=== PATIENT | female | born 1965 | race Asian ===

== ENCOUNTER → 2018-09-20 07:07 | Outpatient (CLI) | payer BC, SELFPAY ==
[2018-09-20 10:39] LABS: ALB/GLOB Ratio 1.2 RATIO (0.9-2.4); AST(SGOT) 35 U/L (15-37); Alanine Aminotransfer ALT/SGPT 59 U/L (13-56); Albumin, Serum 3.9 g/dL (3.2-5.0); Alkaline Phosphatase 77 U/L (45-117); Anion Gap 8 (5-15); BUN 14 mg/dL (7-18); BUN/Creat Ratio 23.1 RATIO (10-20); Calcium,Total 8.9 mg/dL (8.5-10.1); Chloride 104 mmol/L (98-107); Cholesterol 164 mg/dL (200); Creatinine, Serum 0.61 mg/dL (0.55-1.02); EST Glomerular Filtration Rate 109 mL/min (>60); Est Glom Filt Rate - Afr Amer 132 mL/min (>60); Globulin 3.2 g/dL (2.2-4.2); Glucose 99 mg/dL (74-106); High Density Lipoprotein 59 mg/dL; Potassium 4.3 mmol/L (3.5-5.1); Protein, Total 7.1 g/dL (6.4-8.2); Sodium Level 141 mmol/L (136-145); Thyroid Stim Hormone (TSH) 0.48 uIU/mL (0.358-3.74); Triglycerides 86 mg/dL; Very Low Density Lipoprotein 17 mg/dL (5-40)
[2018-09-20 14:05] LABS: Hemoglobin A1c 6.8 % (4.2-6.3)
== END ==
PROVIDERS: Family Provider Family Medicine; PCP Family Medicine; Referring Provider Family Medicine; Visit Provider Family Medicine
DX: E11.9 Type 2 diabetes mellitus without complications (principal); E78.00 Pure hypercholesterolemia, unspecified
CPT/HCPCS: 36415; 80053; 80061; 83036; 84443

== ENCOUNTER → 2019-03-21 | Outpatient (CLI) | payer BC, SELFPAY ==
[2019-03-21 10:34] LABS: ALB/GLOB Ratio 1.3 RATIO (0.9-2.4); AST(SGOT) 23 U/L (15-37); Alanine Aminotransfer ALT/SGPT 32 U/L (13-56); Albumin, Serum 3.7 g/dL (3.2-5.0); Alkaline Phosphatase 82 U/L (45-117); Anion Gap 8 (5-15); BUN 12 mg/dL (7-18); BUN/Creat Ratio 21.7 RATIO (10-20); CPK Total, Creatine Kinase 97 U/L (26-192); Calcium,Total 8.6 mg/dL (8.5-10.1); Chloride 106 mmol/L (98-107); Cholesterol 146 mg/dL (200); Creatinine, Serum 0.55 mg/dL (0.55-1.02); EST Glomerular Filtration Rate 121 mL/min (>60); Est Glom Filt Rate - Afr Amer 147 mL/min (>60); GGTP 49 U/L (5-55); Globulin 2.9 g/dL (2.2-4.2); Glucose 104 mg/dL (74-106); High Density Lipoprotein 58 mg/dL; Potassium 4.1 mmol/L (3.5-5.1); Protein, Total 6.6 g/dL (6.4-8.2); Sodium Level 142 mmol/L (136-145); Triglycerides 91 mg/dL; Very Low Density Lipoprotein 18 mg/dL (5-40)
== END | disposition home or self-care (01) ==
LOC: MTLAB 07:03
PROVIDERS: Family Provider Family Medicine; PCP Family Medicine; Referring Provider Family Medicine; Visit Provider Family Medicine
DX: R74.0 Nonspecific elevation of levels of transaminase and lactic acid dehydrogenase [LDH] (principal); E78.00 Pure hypercholesterolemia, unspecified; E11.9 Type 2 diabetes mellitus without complications
CPT/HCPCS: 36415; 80053; 80061; 82550; 82977

== ENCOUNTER → 2019-08-13 08:54 | Outpatient (CLI) | payer BC, SELFPAY ==
[2019-08-13 09:49] LABS: Hematocrit 41.1 % (37-47); Hemoglobin 13.1 g/dL (12.0-15.0); Mean Corp Hgb Conc 31.9 g/dL (32-36); Mean Corpuscular Hgb 28.1 pg (27.0-32.0); Mean Corpuscular Volume 88.2 fL (81-99); Mean Platelet Vol. 10.9 fl (6.2-12.0); Platelet Count 255 K/mm3 (150-450); RBC Distribution Width CV 13.4 % (11.6-14.6); RBC Distribution Width SD 43.2 fl (35.1-43.9); Red Blood Count 4.66 M/mm3 (4.2-5.4)
[2019-08-13 10:13] LABS: ALB/GLOB Ratio 1.2 RATIO (0.9-2.4); AST(SGOT) 15 U/L (15-37); Alanine Aminotransfer ALT/SGPT 20 U/L (13-56); Alkaline Phosphatase 69 U/L (45-117); Anion Gap 4 (5-15); BUN 12 mg/dL (7-18); BUN/Creat Ratio 19.8 RATIO (10-20); Calcium,Total 8.5 mg/dL (8.5-10.1); Chloride 105 mmol/L (98-107); Cholesterol 178 mg/dL (200); Creatinine, Serum 0.61 mg/dL (0.55-1.02); EST Glomerular Filtration Rate 109 mL/min (>60); Est Glom Filt Rate - Afr Amer 132 mL/min (>60); Globulin 3.4 g/dL (2.2-4.2); Glucose 103 mg/dL (74-106); Hemoglobin A1c 6.7 % (4.2-6.3); High Density Lipoprotein 67 mg/dL; Potassium 3.9 mmol/L (3.5-5.1); Protein, Total 7.4 g/dL (6.4-8.2); Sodium Level 139 mmol/L (136-145); Thyroid Stim Hormone (TSH) 0.33 uIU/mL (0.358-3.74); Triglycerides 85 mg/dL; Very Low Density Lipoprotein 17 mg/dL (5-40)
[2019-08-13 10:28] LABS: Vitamin D,25 Hydroxy 12.4 ng/mL (29.95-100.01)
== END ==
PROVIDERS: Family Provider Family Medicine; PCP Family Medicine; Referring Provider Family Medicine; Visit Provider Family Medicine
DX: E11.9 Type 2 diabetes mellitus without complications (principal)
CPT/HCPCS: 36415; 80053; 80061; 82306; 83036; 84443; 85027

== ENCOUNTER → 2020-05-07 | Outpatient (CLI) | payer BC, SELFPAY ==
[2020-05-07 09:48] LABS: Absolute Lymphocyte Count 2.43 X10^3/uL (0.83-4.51); Absolute Neutrophil Count 2.3 X10^3/uL (2.0-7.7); Basophil# 0.03 X10^3/uL; Basophil% 0.6 % (0-1); Eosinophil# 0.07 X10^3/uL; Eosinophils% 1.3 % (0-5); Hemoglobin 13.6 g/dL (12.0-15.0); Lymphocyte # 2.43 X10^3/ul (4.0); Lymphocyte % 45.8 % (19-41); Mean Corp Hgb Conc 32.4 g/dL (32-36); Mean Corpuscular Hgb 28.5 pg (27.0-32.0); Mean Corpuscular Volume 87.9 fL (81-99); Mean Platelet Vol. 11.2 fl (6.2-12.0); Monocyte# 0.44 X10^3/uL; Monocyte% 8.3 % (0-10); NRBC Flagged by Analyzer 0 % (0-5); Neutrophil # 2.33 X10^3/uL (2.7-7.7); Neutrophil % 43.8 % (47-70); Platelet Count 253 K/mm3 (150-450); RBC Distribution Width SD 38.9 fl (35.1-43.9); Red Blood Count 4.78 M/mm3 (4.2-5.4); White Blood Count 5.3 K/mm3 (4.4-11.0)
[2020-05-07 10:11] LABS: ALB/GLOB Ratio 1.2 RATIO (0.9-2.4); AST(SGOT) 20 U/L (15-37); Alanine Aminotransfer ALT/SGPT 36 U/L (13-56); Albumin, Serum 3.9 g/dL (3.2-5.0); Alkaline Phosphatase 74 U/L (45-117); Anion Gap 7 (5-15); BUN 13 mg/dL (7-18); BUN/Creat Ratio 21.5 RATIO (10-20); Calcium,Total 8.7 mg/dL (8.5-10.1); Chloride 104 mmol/L (98-107); Cholesterol 183 mg/dL (200); Creatinine, Serum 0.61 mg/dL (0.55-1.02); EST Glomerular Filtration Rate 109 mL/min (>60); Est Glom Filt Rate - Afr Amer 131 mL/min (>60); Globulin 3.2 g/dL (2.2-4.2); Glucose 130 mg/dL (74-106); High Density Lipoprotein 57 mg/dL; Potassium 3.9 mmol/L (3.5-5.1); Protein, Total 7.1 g/dL (6.4-8.2); Sodium Level 139 mmol/L (136-145); Thyroid Stim Hormone (TSH) 0.39 uIU/mL (0.358-3.74); Triglycerides 147 mg/dL; Very Low Density Lipoprotein 29 mg/dL (5-40)
[2020-05-07 10:29] LABS: Microalbumin,Random Urine 5.8 mg/L (NO RANGE EST.); Microalbumin:Creatinine Ratio 6.5 mg/g CRE (<30 mg/g CRE)
[2020-05-07 10:41] LABS: Hemoglobin A1c 6.9 % (3.8-5.6)
[2020-05-07 10:55] LABS: Vitamin D,25 Hydroxy 32.8 ng/mL
== END | disposition home or self-care (01) ==
LOC: MFPLAB 08:11
PROVIDERS: PCP Family Medicine; Referring Provider Family Medicine; Visit Provider Family Medicine
DX: E55.9 Vitamin D deficiency, unspecified (principal); E11.9 Type 2 diabetes mellitus without complications
CPT/HCPCS: 36415; 80053; 80061; 82043; 82306; 82570; 83036; 84443; 85025

== ENCOUNTER → 2021-01-12 13:41 | Outpatient (CLI) | payer BC, SELFPAY | PROVIDERS: PCP Family Medicine; Visit Provider Family Medicine | DX: Z20.822 Contact with and (suspected) exposure to COVID-19 (principal) | CPT/HCPCS: 87635; U0002 ==

== ENCOUNTER → 2021-02-11 08:46 | Outpatient (CLI) | payer BC, SELFPAY ==
[2021-02-11 10:51] LABS: ALB/GLOB Ratio 1.1 RATIO (0.9-2.4); AST(SGOT) 14 U/L (15-37); Alanine Aminotransfer ALT/SGPT 20 U/L (13-56); Albumin, Serum 3.9 g/dL (3.2-5.0); Alkaline Phosphatase 66 U/L (45-117); Anion Gap 3 (5-15); BUN 8 mg/dL (7-18); BUN/Creat Ratio 12.9 RATIO (10-20); Calcium,Total 8.9 mg/dL (8.5-10.1); Chloride 104 mmol/L (98-107); Cholesterol 200 mg/dL (200); Creatinine, Serum 0.62 mg/dL (0.55-1.02); EST Glomerular Filtration Rate 105 mL/min (>60); Est Glom Filt Rate - Afr Amer 128 mL/min (>60); Ferritin 109 ng/mL (8-252); Globulin 3.4 g/dL (2.2-4.2); Glucose 128 mg/dL (74-106); High Density Lipoprotein 67 mg/dL; Potassium 4.2 mmol/L (3.5-5.1); Protein, Total 7.3 g/dL (6.4-8.2); Sodium Level 137 mmol/L (136-145); Thyroid Stim Hormone (TSH) 0.32 uIU/mL (0.358-3.74); Triglycerides 118 mg/dL; Very Low Density Lipoprotein 24 mg/dL (5-40)
[2021-02-17 12:25] LABS: Vitamin D,25 Hydroxy 30.3 ng/mL
== END ==
PROVIDERS: PCP Family Medicine; Referring Provider Family Medicine; Visit Provider Family Medicine
DX: E55.9 Vitamin D deficiency, unspecified (principal); E11.9 Type 2 diabetes mellitus without complications; E78.00 Pure hypercholesterolemia, unspecified; G47.9 Sleep disorder, unspecified
CPT/HCPCS: 36415; 80053; 80061; 82306; 82728; 84443

== ENCOUNTER → 2021-04-14 08:54 | Outpatient (CLI) | payer BC, SELFPAY ==
--- NOTE | 2021-04-14 09:00 | BI_ITS ---
MAMMOGRAPHY - BILATERAL DIAGNOSTIC REASON FOR EXAM: Female, 55 years old. Abnormal screening mammogram. PERTINENT HISTORY: Non-contributory. TECHNIQUE: 90 degree lateral and compression spot views of both breasts were obtained. CAD: Full Field Digital Mammography with Computer Added Detection was performed. COMPARISON: Comparison is made with prior outside examination dated 03/23/2021. FINDINGS: Breast Composition: There are scattered areas of fibroglandular density. The questionable density in the upper aspect of the left breast represents superimposition of tissue. Persistent nodular density in the deep slightly inferior aspect of the right breast is seen. Correlation with ultrasound is recommended. No other significant abnormalities are identified. BI/DIAG MAMM W/CAD, BILAT IMPRESSION: Correlation with ultrasound is recommended for the nodular density seen in the deep slightly inferior aspect of the right breast. ASSESSMENT CATEGORY: BIRADS Category 0: Incomplete. Need additional imaging evaluation. A letter regarding these results will be sent to the patient by the facility within 30 days. Approximately 10% of breast cancers are not detected by mammography. A normal mammogram should not delay biopsy of a clinically suspicious abnormality. Electronically Signed: Rafael Wood MD at 9:45 EDT , Service support ,
--- NOTE | 2021-04-14 09:54 | US_ITS ---
STUDY: ULTRASOUND BREAST - RIGHT REASON FOR EXAM: Female, 55 years old. Abnormal screening mammogram. TECHNIQUE: Axial and longitudinal images of the RIGHT breast were performed with a high resolution ultrasound transducer. # OF IMAGES: 30 COMPARISON: Comparison is made with prior mammogram done earlier in the day. FINDINGS: RIGHT Breast: The inferior half of the right breast was examined by ultrasound. No sonographic abnormality is seen. US/Breast Complete Unilateral IMPRESSION: No sonographic abnormality is seen. ASSESSMENT CATEGORY: BIRADS Category 1: Negative. A letter regarding these results will be sent to the patient by the facility within 30 days. Electronically Signed: Rafael Wood MD at 10:52 EDT , Service support ,
== END ==
PROVIDERS: PCP Family Medicine; Referring Provider Family Medicine; Visit Provider Family Medicine
DX: R92.8 Other abnormal and inconclusive findings on diagnostic imaging of breast (principal)
CPT/HCPCS: 76641; 77062; 77066; G0279

== ENCOUNTER → 2021-09-13 08:08 | Outpatient (CLI) | payer BC, SELFPAY ==
[2021-09-13 10:29] LABS: PTHIN 42.5 pg/mL (18.4-80.1)
[2021-09-13 11:41] LABS: AST(SGOT) 17 U/L (15-37); Alanine Aminotransfer ALT/SGPT 29 U/L (13-56); Albumin, Serum 3.4 g/dL (3.2-5.0); Alkaline Phosphatase 67 U/L (45-117); Anion Gap 8 (5-15); BUN 14 mg/dL (7-18); BUN/Creat Ratio 23.6 RATIO (10-20); Calcium,Total 8.6 mg/dL (8.5-10.1); Chloride 106 mmol/L (98-107); Cholesterol 145 mg/dL (200); Creatinine, Serum 0.59 mg/dL (0.55-1.02); EST Glomerular Filtration Rate 111 mL/min (>60); Est Glom Filt Rate - Afr Amer 134 mL/min (>60); Free T3 2.8 pg/mL (2.18-3.98); Globulin 3.4 g/dL (2.2-4.2); Glucose 112 mg/dL (74-106); High Density Lipoprotein 55 mg/dL; Potassium 3.6 mmol/L (3.5-5.1); Protein, Total 6.8 g/dL (6.4-8.2); Sodium Level 142 mmol/L (136-145); T4 Free Direct 1.29 ng/dL (0.76-1.46); Thyroid Stim Hormone (TSH) 0.65 uIU/mL (0.358-3.74); Triglycerides 63 mg/dL; Very Low Density Lipoprotein 13 mg/dL (5-40)
[2021-09-14 16:29] LABS: Anti-Thyroglobulin AB < 1.0 IU/mL (0.0-0.9); Thyroglobulin, Serum Qt. 5.6 ng/mL (1.5-38.5); Thyroid Peroxidase AB 9 IU/mL (0-34)
== END ==
PROVIDERS: PCP Family Medicine; Referring Provider Family Medicine; Visit Provider Family Medicine
DX: E04.1 Nontoxic single thyroid nodule (principal); E11.9 Type 2 diabetes mellitus without complications
CPT/HCPCS: 80053; 80061; 83970; 84432; 84439; 84443; 84481; 86376; 86800

== ENCOUNTER 2021-09-26 10:17 | Outpatient (CLI) | payer BC, SELFPAY ==
--- NOTE | 2021-09-26 10:23 | US_ITS ---
STUDY: THYROID ULTRASOUND REASON FOR EXAM: Female, 55 years old. R lower pole, 8-9mm, firm, round, mobile nodule in inferior pole TECHNIQUE: Ultrasound evaluation of the thyroid was performed with real-time and static holman-scale imaging. COMPARISON: None. FINDINGS: RIGHT LOBE: The right lobe of the thyroid gland measures 5.4 x 2.0 x 1.6 cm. There is a homogeneous echotexture. There is an upper pole 3 x 2 x 2 mm cystic structure. There is a 3 x 2 x 2 mm cystic structure within the right thyroid. LEFT LOBE: The left lobe of the thyroid gland measures 5.7 x 2.0 x 1.6 cm. There is a homogeneous echotexture. There are 3 cystic structures within the left thyroid each measuring approximately 3 x 2 x 3 mm. ISTHMUS: The isthmus measures 3 millimeters. . The level of the right midline isthmus there is a 6 x 7 x 1 mm superficial cystic structure with through transmission. There is no significant vascularity. The regional lymph nodes are normal. US/Thyroid IMPRESSION: Small bilateral cystic structures within the enlarged thyroid. There is a exophytic 6 x 7 x 4 mm cystic structure in the periphery of the right midline of the isthmus, potentially palpable. Electronically Signed: Selena Liu MD at 4:49 EST Tel , Service support ,
== END 2021-09-26 23:59 | disposition home or self-care (01) ==
LOC: US 10:18
PROVIDERS: PCP Family Medicine; Visit Provider Family Medicine
DX: E04.1 Nontoxic single thyroid nodule (principal)
CPT/HCPCS: 76536

== ENCOUNTER → 2022-04-10 | Outpatient (CLI) | payer BC, SELFPAY ==
--- NOTE | 2022-04-10 09:40 | RAD_ITS ---
STUDY: X-RAY - RIGHT WRIST REASON FOR EXAM: Female, 56 years old. Chronic pain. TECHNIQUE: 3 view(s) of the wrist were obtained. COMPARISON: None. FINDINGS: Osteopenia. Normal visualized distal radius and ulna. Mild arthrosis of the radiocarpal articulation. Normal distal radioulnar articulation. Normal carpal bones. Mild arthrosis of the radial carpal row. Moderate arthrosis of the first CMC joint. Normal second through fifth carpometacarpal articulations. Normal visualized metacarpal bones. The soft tissue structures are unremarkable. RAD/Wrist min 3 Views IMPRESSION: Osteopenia with osteoarthritic changes as described. No acute abnormality, chondrocalcinosis or erosive changes. Electronically Signed: Ambrocio Bullard MD at 12:41 EDT ,
== END | disposition home or self-care (01) ==
PROVIDERS: PCP Family Medicine; Referring Provider Family Medicine; Visit Provider Family Medicine
DX: M25.531 Pain in right wrist (principal)
CPT/HCPCS: 73110

== ENCOUNTER → 2022-04-17 | Outpatient (CLI) | payer BC, SELFPAY ==
--- NOTE | 2022-04-17 08:36 | BI_ITS ---
MAMMOGRAPHY - BILATERAL SCREENING REASON FOR EXAM: Female, 56 years old. Routine annual screening examination. PERTINENT HISTORY: Non-contributory. TECHNIQUE: Digital bilateral breast tammy (3D mammographic acquisition) in the CC and MLO projections. 2-D mediolateral oblique (MLO) and craniocaudad (CC) views of both breasts were obtained. CAD: Full Field Digital Mammography with Computer Added Detection was performed. COMPARISON: Comparison is made with prior examination dated 04/14/2021. FINDINGS: Breast Composition: The breasts are heterogeneously dense, which may obscure small masses. There are no dominant masses or suspicious calcifications. Stable small benign-appearing bilateral axillary lymph nodes. No other significant abnormalities are identified. There has been no significant change since the prior study. BI/SCRN MAMM (CAD)W/TAMMY BILAT IMPRESSION: Stable bilateral screening mammogram. Yearly follow-up mammogram recommended. (A) ASSESSMENT CATEGORY: BIRADS Category 2: Benign. A letter regarding these results will be sent to the patient by the facility within 30 days. Approximately 10% of breast cancers are not detected by mammography. A normal mammogram should not delay biopsy of a clinically suspicious abnormality. [id number] Electronically Signed: Rafael Wood MD at 9:37 EDT ,
== END | disposition home or self-care (01) ==
LOC: OPBI 08:35
PROVIDERS: PCP Family Medicine; Visit Provider Family Medicine
DX: Z12.31 Encounter for screening mammogram for malignant neoplasm of breast (principal)
CPT/HCPCS: 77063; 77067

== ENCOUNTER 2022-05-12 10:00 | Outpatient (RCR) | payer BC, SELFPAY ==
--- NOTE | 2022-04-26 13:40 | HP.OTEVAL_ITS ---
Patient's Visit Information YUNIER TERRY is a 56 year old F, referred to Occupational Therapy by Dr. Dakota Mckinley MD, with a diagnosis of R CTS. Date of Evaluation: 04/26/22 Occupational Therapist: Macie Gómez - Subjective Pt reports having symptoms since July and symptoms have been progressively getting worse. Wearing brace at night on R hand. - ADLs Comments: Pt reports fasteners can be tricky at times Comments: Pt reports holding utensils can bother her Comments: Pt reports discomfort in R hand when completing hygiene Comments: Pt reports difficulty with opening containers, peeling veggies Comments: Pt's spouse helps when/as needed - Pain R hand 2 - ROM Wrist: R: 60* flex, 55* ext; L: 90* flex, 70* ext - Strength Application Release Manager: R: 33#, L: 45# Lateral Pinch: R: 8#, L: 12# Tripod Pinch: R: 8#, L: 10# Tip-to-Tip Pinch: R: 6#, L: 6# Strength Comments: Pt reports she is R hand dominant. Works out every day. Most difficult with positions where having to hold body up (push ups). - Quick DASH-Disab of Arm,Shoulder& Hand Quick DASH Score: 25.0000 - Goals Goal:: Pt will increase R fishing tackle repairer strength by 10-15# by end of D/C to complete ADL/IADL tasks Goal:: Pt will demo an increase in wrist flex/ext AROM by 10-15 degrees to complete ADL tasks Goal:: Pt will demo 2/10 pain or less during FMC tasks Goal:: Pt will be educated on joint protection techniques by end of D/C Goal:: Pt will be educated on AE as needed to complete ADL tasks (opening jars/containers, peeling vegetables, etc). - Rehabilitation General Assessment: Pt presents with R CTS- no surgery. Pt reports symptoms have been occurring since July. She is R hand dominant. She shared that she has decreased R wrist flex/ext and increased pain with activities, such as when peeling vegetables and when writing. Pt reports difficulty with opening jars/containers, and increased discomfort when completing toileting hygiene with R hand. Assessed fishing tackle repairer/pinch strength. 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 She shared that she has heightened keyboard to keep wrist in neutral position and that has helped. She works out and reports difficulty with push ups and prolonged body holds. She reports that she wears a brace a night to sleep and that has helped with getting good sleep and decrease pain/discomfort in R hand. Educated pt on body mechanics and dx, and introduced pt to HEP with handout provided. Rehabilitation Potential: Good - Anticipated Interventions A/AAROM/PROM, Strengthening, Joint Protection/Energy Conservation, Ergonomic Education, Fine Motor Coord/Josh, ADL Training, Education re assistive Equipment, Home Program - Visit Plan Frequency: 1x/Week Duration: 4 Weeks TEXT: Thank you for the opportunity to evaluate your patient. For Medicare and Medicare HMO plans, please review the plan of care and approve it. It will need to be FAXED BACK to us at [phone] for Medicare purposes. Please let me know if there are questions or concerns regarding this plan of care. Physician Signature: Date:
--- NOTE | 2022-08-28 12:55 | HP.OT.NRP ---
YUNIER TERRY was seen in my office for initial evaluation on 04/26/22. The following Plan of Care was established for this patient: Initial Frequency: 1x/Week Initial Duration: 4 Weeks Plan: cont POC Anticipated Interventions: A/AAROM/PROM, Strengthening, Joint Protection/Energy Conservation, Ergonomic Education, Fine Motor Coord/Josh, ADL Training, Education re assistive Equipment, Home Program This patient was last seen in our office 05/12/22. Pertinent comments regarding their Occupational therapy will appear below: Pt was seen for 5 OT sessions- pt progressed well- she did get a home paraffin tank to use- no further apts have been scheduled and due to time lapse in services pt d/c. At this point I will be discontinuing this patient from occupational therapy. I would be happy to see this patient again in the future if found appropriate by the physician. Thank you! Penny Quezada, OTR/L, CHT
== END 2022-05-12 19:00 | disposition home or self-care (01) ==
LOC: OT 10:00
PROVIDERS: PCP Family Medicine; Referring Provider Family Medicine; Visit Provider Family Medicine
DX: G56.01 Carpal tunnel syndrome, right upper limb (principal)
CPT/HCPCS: 97035; 97110; 97140; 97166; 97530

== ENCOUNTER → 2022-09-21 | Outpatient (CLI) | payer BC, SELFPAY ==
[2022-09-21 10:29] LABS: Hemoglobin A1c 6.5 % (3.8-5.6)
[2022-09-21 10:37] LABS: ALB/GLOB Ratio 1.1 RATIO (0.9-2.4); AST(SGOT) 19 U/L (15-37); Alanine Aminotransfer ALT/SGPT 38 U/L (13-56); Albumin, Serum 3.6 g/dL (3.2-5.0); Alkaline Phosphatase 91 U/L (45-117); Anion Gap 8 (5-15); BUN 12 mg/dL (7-18); BUN/Creat Ratio 17.9 RATIO (10-20); Calcium,Total 8.8 mg/dL (8.5-10.1); Chloride 103 mmol/L (98-107); Cholesterol 198 mg/dL (200); Creatinine, Serum 0.67 mg/dL (0.55-1.02); EST Glomerular Filtration Rate 96 mL/min (>60); Est Glom Filt Rate - Afr Amer 116 mL/min (>60); Globulin 3.4 g/dL (2.2-4.2); Glucose 130 mg/dL (74-106); High Density Lipoprotein 54 mg/dL; Sodium Level 139 mmol/L (136-145); Thyroid Stim Hormone (TSH) 0.61 uIU/mL (0.358-3.74); Triglycerides 185 mg/dL; Very Low Density Lipoprotein 37 mg/dL (5-40)
== END | disposition home or self-care (01) ==
LOC: MTLAB 07:51
PROVIDERS: PCP Family Medicine; Referring Provider Family Medicine; Visit Provider Family Medicine
DX: E11.9 Type 2 diabetes mellitus without complications (principal); E55.9 Vitamin D deficiency, unspecified; E04.1 Nontoxic single thyroid nodule
CPT/HCPCS: 36415; 80053; 80061; 82306; 83036; 84443

== ENCOUNTER → 2022-10-05 | Outpatient (CLI) | payer BC, SELFPAY ==
--- NOTE | 2022-10-05 12:48 | US_ITS ---
STUDY: THYROID ULTRASOUND REASON FOR EXAM: Female, 56 years old. Exophytic cyst TECHNIQUE: Ultrasound evaluation of the thyroid was performed with real-time and static holman-scale imaging. COMPARISON: Comparison is made with prior study 09/26/2021. FINDINGS: RIGHT LOBE: The right lobe of the thyroid gland is enlarged and measures 5.3 cm x 2 cm x 1.7 cm. There is a homogeneous echotexture. There are 2, 2 mm x 2 mm x 2 mm adjacent cysts in the upper pole. LEFT LOBE: The left lobe of the thyroid gland is enlarged and measures 5.4 cm x 2 cm x 1.4 cm. There is a homogeneous echotexture. There are multiple subcentimeter hypoechoic solid and cystic nodules. The largest is in the upper pole and measures 4 mm x 4 mm x 2 mm. This is essentially unchanged. ISTHMUS: The isthmus measures 2.7 mm. Stable 8 mm x 9 mm x 4 mm cyst in the mid aspect of the isthmus. The regional lymph nodes are normal. US/Thyroid IMPRESSION: Stable examination Electronically Signed: Rafael Wood MD at 10:25 EST ,
== END | disposition home or self-care (01) ==
LOC: US 12:46
PROVIDERS: PCP Family Medicine; Visit Provider Family Medicine
DX: E04.1 Nontoxic single thyroid nodule (principal)
CPT/HCPCS: 76536

== ENCOUNTER → 2023-04-02 | Outpatient (CLI) | payer BC, SELFPAY ==
[2023-04-02 10:35] LABS: AST(SGOT) 30 U/L (15-37); Alanine Aminotransfer ALT/SGPT 42 U/L (13-56); Albumin, Serum 3.8 g/dL (3.2-5.0); Alkaline Phosphatase 90 U/L (45-117); Anion Gap 4 (5-15); BUN 17 mg/dL (7-18); BUN/Creat Ratio 22.5 RATIO (10-20); Calcium,Total 9.1 mg/dL (8.5-10.1); Chloride 102 mmol/L (98-107); Cholesterol 212 mg/dL (200); Creatinine, Serum 0.76 mg/dL (0.55-1.02); EST Glomerular Filtration Rate 83 mL/min (>60); Est Glom Filt Rate - Afr Amer 101 mL/min (>60); Globulin 3.8 g/dL (2.2-4.2); Glucose 122 mg/dL (74-106); High Density Lipoprotein 58 mg/dL; Potassium 4.3 mmol/L (3.5-5.1); Protein, Total 7.6 g/dL (6.4-8.2); Sodium Level 136 mmol/L (136-145); Triglycerides 250 mg/dL; Very Low Density Lipoprotein 50 mg/dL (5-40)
[2023-04-02 10:44] LABS: Vitamin D,25 Hydroxy 48.8 ng/mL
== END | disposition home or self-care (01) ==
LOC: MFPLAB 08:59
PROVIDERS: PCP Family Medicine; Visit Provider Family Medicine
DX: E11.69 Type 2 diabetes mellitus with other specified complication (principal); E55.9 Vitamin D deficiency, unspecified
CPT/HCPCS: 36415; 80053; 80061; 82306

== ENCOUNTER → 2023-04-18 | Outpatient (CLI) | payer BC, SELFPAY ==
--- NOTE | 2023-04-18 07:42 | BI_ITS ---
MAMMOGRAPHY - BILATERAL SCREENING REASON FOR EXAM: Female, 57 years old. Routine annual screening examination. PERTINENT HISTORY: Non-contributory. TECHNIQUE: Digital bilateral breast tammy (3D mammographic acquisition) in the CC and MLO projections. 2-D mediolateral oblique (MLO) and craniocaudad (CC) views of both breasts were obtained. CAD: Full Field Digital Mammography with Computer Added Detection was performed. COMPARISON: Comparison is made with prior study April 17, 2022 and April 14, 2021. FINDINGS: Breast Composition: The breasts are heterogeneously dense, which may obscure small masses. There are no dominant masses or suspicious calcifications. Stable small benign appearing bilateral axillary nodes. No other significant abnormalities are identified. There has been no significant change since the prior study. BI/SCRN MAMM (CAD)W/TAMMY BILAT IMPRESSION: Stable bilateral screening mammogram. Yearly follow-up mammogram recommended. (A) ASSESSMENT CATEGORY: BIRADS Category 2: Benign. A letter regarding these results will be sent to the patient by the facility within 30 days. Approximately 10% of breast cancers are not detected by mammography. A normal mammogram should not delay biopsy of a clinically suspicious abnormality. [id number] Electronically Signed: Rafael Wood MD at 8:36 EDT ,
== END | disposition home or self-care (01) ==
LOC: OPBI 07:40
PROVIDERS: PCP Family Medicine; Referring Provider Family Medicine; Visit Provider Family Medicine
DX: Z12.31 Encounter for screening mammogram for malignant neoplasm of breast (principal)
CPT/HCPCS: 77063; 77067

== ENCOUNTER → 2023-09-21 | Outpatient (CLI) | payer BC, SELFPAY ==
--- OUTSIDE RECORDS SUMMARY | 2023-09-21 07:19 | XMS RPT_ITS | CCD ---
Author Name Unknown Address [address] [place] [address] Organization [facility] Care Team Providers Care Pie Maker Name Role Phone DIONICIO LOYA Unavailable Unavailable DIONICIO LOYA Unavailable Unavailable Problems Active Problems Problem Classification Problem Date Documented Da te Episodic/Chronic Unclassified (1 source) Unknown / UNK(Unknown) Onset: 07-20-2017 Past or Other Problems Problem Classification Problem Date Documented Da te Episodic/Chronic Syncope (2 sources) Syncope and collapse; Translations: [Syncope and collapse] Onset: 07-20-2017 Episodic Results Test Name Value Interpretation Reference Range Facil ity Encounters Encounter Date Encounter Type Care Provider Facility Start: 07-20-2017 End: 07-21-2017 Emergency department patient visit DIONICIO LOYA [facility] Payers Date Payer Category Payer Policy ID Unknown [id number] Summary Purpose Family History No Family History Records FoundNo Family History Records FoundNo Family History Records FoundNo Family History Records Found Advance Directives No Advanced Directives Records FoundNo Advanced Directives Records FoundNo Advanced Directives Records FoundNo Advanced Directives Records Found Additional Source Comments INFORMATION SOURCE (unrecogn ized section and content) DATE CREATED AUTHOR AUTHOR'S ORGANIZ ATION 03/19/2018 [facility] DATE CREATED AUTHOR AUTHOR'S ORGANIZ ATION 09/03/2019 [facility] DATE CREATED AUTHOR AUTHOR'S ORGANIZ ATION 03/09/2020 [facility] ([place]) FOR RECORDS PERTAINING TO PATIENTS WHO ARE OR HAVE BEEN ENROLLED IN A CHEMICAL DEPENDENCY/SUBSTANCEABUSE PROGRAM, SOME INFORMATION MAY BE OMITTED. This clinical summary was aggregated from multiple sources. Caution should be exercised in using it in the provision of clinical care. This summary normalizes information from multiple sources, and as a consequence, information in this document may materially change the coding, format and clinical context of patient data. In addition, data may be omitted in some cases. CLINICAL DECISIONS SHOULD BE BASED ON THE PRIMARY CLINICAL RECORDS. [facility] [employer] [facility]. provides no warranty or guarantee of the accuracy or completeness of information in this document.
[2023-09-21 10:32] LABS: ALB/GLOB Ratio 1.2 RATIO (0.9-2.4); AST(SGOT) 21 U/L (15-37); Alanine Aminotransfer ALT/SGPT 20 U/L (13-56); Albumin, Serum 3.6 g/dL (3.2-5.0); Alkaline Phosphatase 71 U/L (45-117); Anion Gap 8 (5-15); BUN 22 mg/dL (7-18); BUN/Creat Ratio 34.5 RATIO (10-20); Calcium,Total 8.4 mg/dL (8.5-10.1); Chloride 108 mmol/L (98-107); Cholesterol 195 mg/dL (200); Creatinine, Serum 0.64 mg/dL (0.55-1.02); EST Glomerular Filtration Rate 101 mL/min (>60); Est Glom Filt Rate - Afr Amer 122 mL/min (>60); Glucose 103 mg/dL (74-106); High Density Lipoprotein 65 mg/dL; Potassium 3.7 mmol/L (3.5-5.1); Protein, Total 6.6 g/dL (6.4-8.2); Sodium Level 144 mmol/L (136-145); Triglycerides 122 mg/dL; Very Low Density Lipoprotein 24 mg/dL (5-40)
[2023-09-21 12:13] LABS: Hemoglobin A1c 6.3 % (3.8-5.6)
== END | disposition home or self-care (01) ==
LOC: MTLAB 07:11
PROVIDERS: PCP Family Medicine; Referring Provider Family Medicine; Visit Provider Family Medicine
DX: E11.9 Type 2 diabetes mellitus without complications (principal); E78.00 Pure hypercholesterolemia, unspecified; E04.1 Nontoxic single thyroid nodule
CPT/HCPCS: 36415; 80053; 80061; 83036; 84439; 84443

== ENCOUNTER → 2023-10-11 | Outpatient (CLI) | payer BC, SELFPAY ==
--- NOTE | 2023-10-11 12:51 | US_ITS ---
INDICATION: PRIOR IRREGULARITY/NODULE/CYST. REPEAT ANNUAL DUE EXAMINATION: Ultrasound US Thyroid (eg thyroid, parathyroid, parotid) TECHNIQUE: Coles scale and color doppler imaging was performed of the thyroid gland. COMPARISON: October 05, 2022 FINDINGS: RIGHT THYROID LOBE: 5.2 x 2.1 x 1.6 cm. Heterogeneous echotexture with normal vascularity. [Upper thyroid stable 3 mm cysts. LEFT THYROID LOBE: 5.3 x 2.2 x 1.6 cm. Heterogeneous echotexture with normal vascularity. [Heterogeneous 3-8 mm complex nodules with the largest nodule increased in size since the previous study. ISTHMUS: 3 mm. There is a stable 8 x 9 x 4 mm cyst. US/Thyroid IMPRESSION: Slightly larger left thyroid complex nodule since the previous study. Right thyroid and isthmus cystic lesions are relatively stable. Electronically Signed: Napoleon Diaz DO at 22:17 EST ,
--- OUTSIDE RECORDS SUMMARY | 2023-10-11 13:11 | XMS RPT_ITS | CCD ---
Author Name Unknown Address [address] [place] [address] Organization [facility] Care Team Providers Care Band Salvager Name Role Phone DIONICIO LOYA Unavailable Unavailable [...] 07-21-2017 Emergency department patient visit DIONICIO LOYA [facility] Payers Date Payer Category Payer Policy ID Unknown [id number] Summary Purpose Family History No Family History Records FoundNo Family History Records FoundNo Family History Records FoundNo Family History Records Found Advance Directives No Advanced Directives Records FoundNo Advanced Directives Records FoundNo Advanced Directives Records FoundNo Advanced Directives Records Found Additional Source Comments INFORMATION SOURCE (unrecogn ized section and content) DATE CREATED AUTHOR AUTHOR'S ORGANIZ ATION 03/19/2018 [facility] DATE CREATED AUTHOR AUTHOR'S ORGANIZ ATION 09/03/2019 [facility] DATE CREATED AUTHOR AUTHOR'S ORGANIZ ATION 03/09/2020 [facility] ([place]) FOR RECORDS PERTAINING TO PATIENTS WHO ARE [...] BE BASED ON THE PRIMARY CLINICAL RECORDS. [facility] [employer] [facility]. provides no warranty or guarantee of the accuracy or completeness of information in this document.
== END | disposition home or self-care (01) ==
LOC: US 12:50
PROVIDERS: PCP Family Medicine; Referring Provider Family Medicine; Visit Provider Family Medicine
DX: E04.1 Nontoxic single thyroid nodule (principal)
CPT/HCPCS: 76536

== ENCOUNTER → 2024-03-19 | Outpatient (CLI) | payer BC, SELFPAY ==
[2024-03-19 10:51] LABS: Hemoglobin A1c 6.4 % (3.8-5.6)
[2024-03-19 10:55] LABS: ALB/GLOB Ratio 1.2 RATIO (0.9-2.4); AST(SGOT) 14 U/L (15-37); Alanine Aminotransfer ALT/SGPT 16 U/L (13-56); Albumin, Serum 3.7 g/dL (3.2-5.0); Alkaline Phosphatase 57 U/L (45-117); Anion Gap 5 (5-15); BUN 15 mg/dL (7-18); BUN/Creat Ratio 26.8 RATIO (10-20); Calcium,Total 8.9 mg/dL (8.5-10.1); Chloride 107 mmol/L (98-107); Cholesterol 159 mg/dL (200); Creatinine, Serum 0.56 mg/dL (0.55-1.02); EST Glomerular Filtration Rate 117 mL/min (>60); Est Glom Filt Rate - Afr Amer 142 mL/min (>60); Glucose 130 mg/dL (74-106); High Density Lipoprotein 65 mg/dL; Potassium 4.2 mmol/L (3.5-5.1); Protein, Total 6.7 g/dL (6.4-8.2); Sodium Level 140 mmol/L (136-145); Thyroid Stim Hormone (TSH) 0.34 uIU/mL (0.358-3.74); Triglycerides 107 mg/dL; Very Low Density Lipoprotein 21 mg/dL (5-40)
== END | disposition home or self-care (01) ==
LOC: MFPLAB 08:54
PROVIDERS: PCP Family Medicine; Visit Provider Family Medicine
DX: E11.69 Type 2 diabetes mellitus with other specified complication (principal)
CPT/HCPCS: 36415; 80053; 80061; 83036; 84443

== ENCOUNTER → 2024-04-29 | Outpatient (CLI) | payer BC, SELFPAY ==
--- NOTE | 2024-04-29 15:54 | BI_ITS ---
MAMMOGRAPHY - BILATERAL SCREENING REASON FOR EXAM: Female, 58 years old. Routine annual screening examination. PERTINENT HISTORY: Non-contributory. TECHNIQUE: Digital bilateral breast tammy (3D mammographic acquisition) in the CC and MLO projections. 2-D mediolateral oblique (MLO) and craniocaudad (CC) views of both breasts were obtained. CAD: Full Field Digital Mammography with Computer Added Detection was performed. COMPARISON: Comparison is made with prior study dated April 18, 2023 and April 17, 2022. FINDINGS: Breast Composition: The breasts are heterogeneously dense, which may obscure small masses. There are no dominant masses or suspicious calcifications. Stable small benign-appearing bilateral axillary lymph nodes. No other significant abnormalities are identified. There has been no significant change since the prior study. BI/SCRN MAMM (CAD)W/TAMMY BILAT IMPRESSION: Stable bilateral screening mammogram. Yearly follow-up mammogram recommended. (A) ASSESSMENT CATEGORY: BIRADS Category 2: Benign. A letter regarding these results will be sent to the patient by the facility within 30 days. Approximately 10% of breast cancers are not detected by mammography. A normal mammogram should not delay biopsy of a clinically suspicious abnormality. [id number] Electronically Signed: Rafael Wood MD at 8:21 EDT ,
== END | disposition home or self-care (01) ==
LOC: OPBI 15:53
PROVIDERS: PCP Family Medicine; Referring Provider Family Medicine; Visit Provider Family Medicine
DX: Z12.31 Encounter for screening mammogram for malignant neoplasm of breast (principal)
CPT/HCPCS: 77063; 77067

== ENCOUNTER → 2024-10-03 | Outpatient (CLI) | payer BC, SELFPAY ==
[2024-10-03 10:54] LABS: ALB/GLOB Ratio 1.1 RATIO (0.9-2.4); AST(SGOT) 14 U/L (15-37); Alanine Aminotransfer ALT/SGPT 18 U/L (13-56); Albumin, Serum 3.5 g/dL (3.2-5.0); Alkaline Phosphatase 65 U/L (45-117); Anion Gap 4 (5-15); BUN 16 mg/dL (7-18); BUN/Creat Ratio 26.8 RATIO (10-20); Calcium,Total 8.7 mg/dL (8.5-10.1); Chloride 107 mmol/L (98-107); Cholesterol 160 mg/dL (200); EST Glomerular Filtration Rate 109 mL/min (>60); Est Glom Filt Rate - Afr Amer 132 mL/min (>60); Globulin 3.2 g/dL (2.2-4.2); Glucose 109 mg/dL (74-106); High Density Lipoprotein 75 mg/dL; Potassium 4.4 mmol/L (3.5-5.1); Protein, Total 6.7 g/dL (6.4-8.2); Sodium Level 139 mmol/L (136-145); Thyroid Stim Hormone (TSH) 0.826 uIU/mL (0.358-3.740); Triglycerides 59 mg/dL; Very Low Density Lipoprotein 12 mg/dL (5-40)
[2024-10-03 11:19] LABS: Hemoglobin A1c 6.4 % (3.8-5.6)
[2024-10-03 11:20] LABS: Microalbumin,Random Urine 11.3 mg/L (NO RANGE EST.); Microalbumin:Creatinine Ratio 9.7 mg/g CRE (<30 mg/g CRE)
== END | disposition home or self-care (01) ==
LOC: MTLAB 07:45
PROVIDERS: PCP Family Medicine; Referring Provider Family Medicine; Visit Provider Family Medicine
DX: E11.69 Type 2 diabetes mellitus with other specified complication (principal); E04.1 Nontoxic single thyroid nodule

== ENCOUNTER → 2025-04-07 | Outpatient (CLI) | payer BC, SELFPAY ==
[2025-04-07 11:12] LABS: Creatinine, Urine (random) 135.00 mg/dL (28.00-217.00); Microalbumin,Random Urine < 12.0 mg/L (<20 mg/L)
[2025-04-07 11:17] LABS: AST(SGOT) 19 U/L (<=31); Alanine Aminotransfer ALT/SGPT 13 U/L (<=34); Albumin, Serum 4.2 g/dL (3.4-4.8); Alkaline Phosphatase 65 U/L (35-104); Anion Gap 12 (5-15); BUN 14 mg/dL (4-19); BUN/Creat Ratio 22.8 RATIO (10-20); Calcium,Total 9.0 mg/dL (7.6-11.0); Carbon Dioxide 25.3 mmol/L (21.0-32.0); Chloride 104 mmol/L (98-108); Globulin 2.4 g/dL (2.2-4.2); Glucose 106 mg/dL (70-99); Potassium 3.9 mmol/L (3.3-5.1)
== END | disposition home or self-care (01) ==
LOC: MFPLAB 08:27
PROVIDERS: PCP Family Medicine; Visit Provider Family Medicine
DX: E11.69 Type 2 diabetes mellitus with other specified complication (principal)
CPT/HCPCS: 36415; 80053; 82043; 82570; 83036

== ENCOUNTER → 2025-04-30 | Outpatient (CLI) | payer BC, SELFPAY ==
--- NOTE | 2025-04-30 07:05 | BI_ITS ---
EXAM: SCRN MAMM (CAD)W/TAMMY BILAT DATE: 04/30/2025 CLINICAL HISTORY: F, Age 59 y/o , ANNUAL EXAM No family history. TECHNIQUE: SCRN MAMM (CAD)W/TAMMY BILAT COMPARISON: Prior exam(s) dated prior study dated April 30, 2024.. FINDINGS: TISSUE DENSITY: The breasts are heterogeneously dense, which may obscure small masses. Bilateral Breast Mammographic Findings: Questionable 6.3 mm x 5.6 mm nodule in the deep slightly upper lateral aspect of the right breast. The patient will be recalled for additional views including 90 degree lateral and compression spot views. BI/SCRN MAMM (CAD)W/TAMMY BILAT IMPRESSION: Nodular density in the right breast as described. The patient will be recalled for additional views. OVERALL FINAL ASSESSMENT BI-RADS 0: INCOMPLETE - NEED ADDITIONAL IMAGING EVALUATION. RECOMMENDATION: Additional Views obtained/call backs A letter with findings and recommendations will be mailed to the patient. Reading Location: [facility]
--- NOTE | 2025-04-30 07:05 | BI_ITS ---
EXAM: SCRN MAMM (CAD)W/TAMMY BILAT DATE: 04/30/2025 CLINICAL HISTORY: F, Age 59 y/o , ANNUAL EXAM No family history. TECHNIQUE: SCRN MAMM (CAD)W/TAMMY BILAT COMPARISON: Prior exam(s) dated prior study dated April 30, 2024.. FINDINGS: TISSUE DENSITY: The breasts are heterogeneously dense, which may obscure small masses. Bilateral Breast Mammographic Findings: Questionable 6.3 mm x 5.6 mm nodule in the deep slightly upper lateral aspect of the right breast. The patient will be recalled for additional views including 90 degree lateral and compression spot views. BI/SCRN MAMM (CAD)W/TAMMY BILAT IMPRESSION: Nodular density in the right breast as described. The patient will be recalled for additional views. OVERALL FINAL ASSESSMENT BI-RADS 0: INCOMPLETE - NEED ADDITIONAL IMAGING EVALUATION. RECOMMENDATION: Additional Views obtained/call backs A letter with findings and recommendations will be mailed to the patient. Reading Location: [facility]
--- OUTSIDE RECORDS SUMMARY | 2025-04-30 07:11 | XMS RPT_ITS | CCD ---
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 Carol Flores MD Primary Care Provider [phone] Dr. Carol Flores MD Attending Provider [phone] Carol Flores Attending Unavailable Carol Flores Primary Care Unavailable Carol Flores Referring Unavailable Carol Flores Attending Unavailable Carol Flores Primary Care Unavailable Carol Flores Attending Unavailable Carol Flores Primary Care Unavailable Carol Flores Referring Unavailable Caorl Flores Attending Unavailable Mark Carol Primary Care Unavailable Carol Flores Referring Unavailable Allergies Allergy Classification Reported Allergen(s) Allergy Type Date of Onset Reaction(s) Facility (5 sources) nickel; Translations: [NICKEL] Drug Allergy 10-23-2023 Unknown [facility] Medications Current Medications Medication Drug Class(es) Dates Sig (Normalized) Sig (Original) acarbose 50 mg oral tablet (14 sources) alpha-Glucosidase Inhibitor Start: 07-06-2014 take 1 tablet by mouth three times daily at mealtime Acarbose 50 MG tablet Active 50 mg PO 3 TIMES DAILY WITH MEALS July 06, 2014 12:00am acarbose (PRECOS E) 50 mg tablet Take 25 mg by mouth three times daily with meals. Active Comment on above: Take 25 mg by mouth three times daily with meals. cholecalciferol 0.05 mg oral tablet (4 sources) Vitamin D take 1 tablet by mouth once daily cholecalciferol (VITAMIN D-3) 50 mcg (2,000 unit) tablet Take 2,000 Units by mouth once daily. Active Comment on above: Take 2,000 Units by mouth once daily. dapagliflozin 10 mg oral tablet (4 sources) Sodium-Glucose Cotransporter 2 Inhibitor take 1 tablet by mouth once daily at breakfast dapagliflozin propanediol (FARXIGA) 10 mg tablet Take 10 mg by mouth daily with breakfast. Active Comment on above: Take 10 mg by mouth daily with breakfast. diclofenac sodium 0.01 mg/mg topical gel (4 sources) Nonsteroidal Anti-inflammatory Drug apply 2 g topically four times daily diclofenac (VOLTAREN) 1 % topical gel Apply 2 g to affected area four times daily. Active Comment on above: Apply 2 g to affecte d area four times daily. fexofenadine hydrochloride 180 mg oral tablet (14 sources) Histamine-1 Receptor Antagonist Start: take 1 tablet by mouth once daily Fexofenadine (Mucinex Allergy) 180 MG tablet Active 180 mg PO DAILY July 06, 2014 12:00am Comment on above: Take 180 mg by mouth once daily. 3 ml liraglutide 6 mg/ml pen injector (14 sources) GLP-1 Receptor Agonist Start: Liraglutide (Victoza 2-Timoteo) 0.6 MG/0.1 ML Ml Active 0.6 mg SQ DAILY July 06, 2014 12:00am inject 1.8 mL by sub cutaneous injection once daily at bedtime LIRAGLUTIDE (VICTOZA 3-TIMOTEO SUBCUTANEOUS) Inject 1.8 mL subcutaneously daily at bedtime. Active inject 1.8 mL by sub cutaneous injection once daily at bedtime LIRAGLUTIDE (VICTOZA 3-TIMOTEO SUBCUTANEOUS) Inject 1.8 mL subcutaneously daily at bedtime. 0 Active Comment on above: Inject 1.8 mL subcut aneously daily at bedtime. losartan potassium 25 mg oral tablet (14 sources) Angiotensin 2 Receptor Melissa Start: 07-06-20 take 1 tablet by mouth once daily Losartan 25 MG tablet Active 25 mg PO DAILY July 06, 2014 12:00am Comment on above: Take 25 mg by mouth once daily. magnesium oxide 400 mg oral tablet (4 sources) take 1 tablet by mouth once daily at lunch magnesium oxide 400 mg magnesium tab Take 1 tablet by mouth daily with lunch. Active Comment on above: Take 1 tablet by hilary th daily with lunch. metFORMIN hydrochloride 500 mg oral tablet (14 sources) Biguanide Start: 07-06-20 14 take 1 tablet by mouth twice daily at mealtime Metformin 500 MG tablet Active 500 mg PO TWICE DAILY WITH MEALS July 06, 2014 12:00am Comment on above: Take 500 mg by mouth twice daily with meals. nateglinide 60 mg oral tablet (14 sources) Glinide Start: 07-06-20 14 take 1 tablet by mouth three times daily Nateglinide 60 MG tablet Active 60 mg PO THREE TIMES A DAY July 06, 2014 12:00am take 50 mg by mouth three times daily NATEGLINIDE ORAL Take 50 mg by mouth three times daily. Active take 50 mg by mouth three times daily NATEGLINIDE ORAL Take 50 mg by mouth three times daily. 0 Active Comment on above: Take 50 mg by mouth three times daily. pioglitazone 15 mg oral tablet (4 sources) Peroxisome Proliferator Receptor alpha Agonist, Peroxisome Proliferator Receptor gamma Agonist, Thiazolidinedione take 1 tablet by mouth once daily at bedtime pioglitazone (ACTOS) 15 mg tablet Take 15 mg by mouth daily at bedtime. Active Comment on above: Take 15 mg by mouth daily at bedtime. rosuvastatin calcium 5 mg oral tablet (4 sources) HMG-CoA Reductase Inhibitor take 4 tablets by mouth once daily rosuvastatin (CRESTOR) 5 mg tablet Take 20 mg by mouth once daily. Active Comment on above: Take 20 mg by mouth once daily. Completed/Discontinued Medications Medication Drug Class(es) Dates Sig (Normalized) Sig (Original) polyethylene glycol 3350 934568 mg / potassium chloride 2970 mg / sodium bicarbonate 6740 mg / sodium chloride 5860 mg / sodium sulfate 50801 mg powder for oral solution (1 source) Osmotic Laxative Start: 10-24-2023 End: 10-24-2023 peg 3350-Electrolytes (GOLYTELY) 236-22.74-6.74 -5.86 gram suspension Indications: History of colonic polyps Take 4,000 mL by mouth one time only for 1 dose. Refer to printed prep instructions from your provider. 4000 mL 0 10/24/2023 10/24/2023 Comment on above: Take 4,000 mL by hilary th one time only for 1 dose. Refer to printed prep instructions from your provider. Problems Active Problems Problem Classification Problem Date Documented Da te Episodic/Chronic Diabetes mellitus with complications (1 source) Type 2 diabetes mellitus with other specified complication; Translations: [Type 2 diabetes mellitus with other specified complication] Onset: 04-13-2025 Chronic Other screening for suspected conditions (not mental disorders or infectious disease) (2 sources) Encounter for screening mammogram for malignant neoplasm of breast; Translations: [Encounter for screening mammogram for malignant neoplasm of breast] Onset: 06-02-2024 Episodic Thyroid disorders (1 source) Multinodular goiter; Translations: [Nontoxic multinodular goiter] 12-18-2023 Chronic Unclassified (1 source) Unknown / UNK(Unknown) Onset: 07-20-2017 Past or Other Problems Problem Classification Problem Date Documented Da te Episodic/Chronic Other and unspecified benign neoplasm (6 sources) History of polyp of colon; Translations: [Personal history of colonic polyps] Onset: 10-30-2023 10-24-2023 Episodic Other and unspecified benign neoplasm (2 sources) Personal history of colonic polyps; Translations: [History of colon polyps] Onset: 10-30-2023 Episodic Syncope (2 sources) Syncope and collapse; Translations: [Syncope and collapse] Onset: 07-20-2017 Episodic Results Test Name Value Interpretation Reference Range Facility Anion gap in Serum or Plasma Ordered By: Carol Flores on 04-07-2025 Anion gap [Moles/Vol] 12 mmol/L 02-05 [facility] BUN/creatinine ratioOrdered By: Carol Flores on 04-07-2025 Urea nitrogen/Creatinine [Mass ratio] 22.8 mg/mg High 07-13 [facility] Bilirubin, totalOrdered By: Carol Flores on 04-07-2025 Bilirubin [Mass/Vol] 0.63 mg/dL 0.00-1.30 [facility] Carbon dioxide, total [Moles /volume] in Central venous bloodOrdered By: Carol Flores on 04-07-2025 CO2 [Moles/Vol] 25.3 mmol/L 21.0-32.0 [facility] Chloride assayOrdered By: Volodymyr Flores on 04-07-2025 Chloride [Moles/Vol] 104 mmol/L 98-108 [facility] Comprehensive Metabolic Prof ilon 04-07-2025 Albumin [Mass/Vol] 4.2 g/dL Normal 3.4-4.8 [facility] Comment on above: Order Comment: Order Date: 10/07/24 Order Info: 0786-1 - CMP Performed By: #### L 500.4050, L501.9985, L502.0250 #### [facility] [address] [place], [address] Albumin/Globulin [Mass ratio] 1.7 {ratio} Normal 0.9-2.4 [facility] Comment on above: Order Comment: Order Date: 10/07/24 Order Info: 0786-1 - CMP Performed By: #### L 500.4050, L501.9985, L502.0250 #### [facility] [address] [place], [address] ALK PHOS 65 U/L Normal 35-104 [facility] Comment on above: Order Comment: Order Date: 10/07/24 Order Info: 0786-1 - CMP Performed By: #### L 500.4050, L501.9985, L502.0250 #### [facility] [address] [place], [address] ALT [Catalytic activity/Vol] 13 U/L Normal <=34 [facility] Comment on above: Order Comment: Order Date: 10/07/24 Order Info: 0786-1 - CMP Performed By: #### L 500.4050, L501.9985, L502.0250 #### [facility] [address] [place], [address] AST [Catalytic activity/Vol] 19 U/L Normal <=31 [facility] Comment on above: Order Comment: Order Date: 10/07/24 Order Info: 0786-1 - CMP Performed By: #### L 500.4050, L501.9985, L502.0250 #### [facility] [address] [place], [address] Bilirubin [Mass/Vol] 0.63 mg/dL Normal 0.00-1.30 [facility] Comment on above: Order Comment: Order Date: 10/07/24 Order Info: 0786-1 - CMP Performed By: #### L 500.4050, L501.9985, L502.0250 #### [facility] [address] [place], [address] BUN/CRE 22.8 RATIO High 10-20 [facility] Comment on above: Order Comment: Order Date: 10/07/24 Order Info: 0786-1 - CMP Performed By: #### L 500.4050, L501.9985, L502.0250 #### [facility] [address] [place], [address] Calcium [Mass/Vol] 9.0 mg/dL Normal 7.6-11.0 [facility] Comment on above: Order Comment: Order Date: 10/07/24 Order Info: 0786-1 - CMP Performed By: #### L 500.4050, L501.9985, L502.0250 #### [facility] [address] [place], [address] Chloride [Moles/Vol] 104 mmol/L Normal 98-108 [facility] Comment on above: Order Comment: Order Date: 10/07/24 Order Info: 0786-1 - CMP Performed By: #### L 500.4050, L501.9985, L502.0250 #### [facility] [address] [place], [address] CO2 [Moles/Vol] 25.3 mmol/L Normal 21.0-32.0 [facility] Comment on above: Order Comment: Order Date: 10/07/24 Order Info: 0786-1 - CMP Performed By: #### L 500.4050, L501.9985, L502.0250 #### [facility] [address] [place], [address] Creatinine [Mass/Vol] 0.60 mg/dL Low 0.70-1.20 [facility] Comment on above: Order Comment: Order Date: 10/07/24 Order Info: 0786-1 - CMP Performed By: #### L 500.4050, L501.9985, L502.0250 #### [facility] [address] [place], [address] GAP 12 Normal 5-15 [facility] Comment on above: Order Comment: Order Date: 10/07/24 Order Info: 0786-1 - CMP Performed By: #### L 500.4050, L501.9985, L502.0250 #### [facility] [address] [place], [address] GFR/1.73 sq M.predicted among non-blacks MDRD (S/P/Bld) [Vol rate/Area] 102 mL/min/{1.73_m2} Normal >60 [facility] Comment on above: Order Comment: Order Date: 10/07/24 Order Info: 0786-1 - CMP Result Comment: mL/m in/1.73m2 CKD-EPI Creatinine Equation (2020) Performed By: #### L 500.4050, L501.9985, L502.0250 #### [facility] [address] [place], [address] Globulin (S) [Mass/Vol] 2.4 g/dL Normal 2.2-4.2 [facility] Comment on above: Order Comment: Order Date: 10/07/24 Order Info: 0786-1 - CMP Performed By: #### L 500.4050, L501.9985, L502.0250 #### [facility] [address] [place], [address] Glucose [Mass/Vol] 106 mg/dL High 70-99 [facility] Comment on above: Order Comment: Order Date: 10/07/24 Order Info: 0786-1 - CMP Performed By: #### L 500.4050, L501.9985, L502.0250 #### [facility] [address] [place], [address] Potassium [Moles/Vol] 3.9 mmol/L Normal 3.3-5.1 [facility] Comment on above: Order Comment: Order Date: 10/07/24 Order Info: 0786-1 - CMP Performed By: #### L 500.4050, L501.9985, L502.0250 #### [facility] [address] [place], [address] Sodium [Moles/Vol] 141 mmol/L Normal 133-145 [facility] Comment on above: Order Comment: Order Date: 10/07/24 Order Info: 0786-1 - CMP Performed By: #### L 500.4050, L501.9985, L502.0250 #### [facility] [address] [place], [address] T PROT 6.6 g/dL Normal 5.9-8.4 [facility] Comment on above: Order Comment: Order Date: 10/07/24 Order Info: 0786-1 - CMP Performed By: #### L 500.4050, L501.9985, L502.0250 #### [facility] [address] [place], [address] Urea nitrogen [Mass/Vol] 14 mg/dL Normal 4-19 [facility] Comment on above: Order Comment: Order Date: 10/07/24 Order Info: 0786-1 - CMP Performed By: #### L 500.4050, L501.9985, L502.0250 #### [facility] [address] [place], [address] Glomerular filtration rate ( GFR) estimation/1.73 sq m using serum, plasma, or whole bOrdered By: Carol Flores on 04-07-2025 GFR/1.73 sq M.predicted among non-blacks MDRD (S/P/Bld) [Vol rate/Area] 102 mL/min/{1.73_m2} >60 [facility] Comment on above: mL/min/1.73m2 CKD-EP I Creatinine Equation (2020) Hemoglobin A1con 04-07-2025 HbA1c (Bld) [Mass fraction] 6.4 % High <=5.6 [facility] Comment on above: Order Comment: Order Date: 10/07/24 Order Info: [id number] - A1C Result Comment: Norm al < 5.7 % Prediabetic 5.7 - 6.4 % Diabetic >or= 6.5 % Please note range changes. Performed By: #### L 500.4050, L501.9985, L502.0250 #### [facility] [address] [place], [place], [address] Hemoglobin A1c percentageOrd ered By: Carol Flores on 04-07-2025 HbA1c (Bld) [Mass fraction] 6.4 % High <5.7 [facility] Comment on above: Normal < 5.7 % Predi abetic 5.7 - 6.4 % Diabetic >or= 6.5 % Please note range changes. Laboratory - Chemistry and C hemistry - challengeOrdered By: Carol Flores on 04-07-2025 AST [Catalytic activity/Vol] 19 U/L <32 [facility] Microalb:Creat Ratio,Random URon 04-07-2025 Creatinine [Mass/Vol] 135.00 mg/dL Normal 28.00- 217.0 0 [facility] Comment on above: Order Comment: Order Date: 10/07/24 Order Info: [id number] - CREATU Order Info: [id number] - MIACRE Order Info: [id number] - ALBU Performed By: #### L 500.4050, L501.9985, L502.0250 #### [facility] [address] [place], [place], [address] MALB:CREAT UNABLE TO CALCULATE Normal <30 mg/g CRE [facility] Comment on above: Order Comment: Order Date: 10/07/24 Order Info: [id number] - CREATU Order Info: [id number] - MIACRE Order Info: [id number] - ALBU Performed By: #### L 500.4050, L501.9985, L502.0250 #### [facility] [address] [facility] [place], [address] MICROALBUMIN,UR < 12.0 Normal <20 mg/L [facility] Comment on above: Order Comment: Order Date: 10/07/24 Order Info: [id number] - CREATU Order Info: [id number] - MIACRE Order Info: [id number] - ALBU Performed By: #### L 500.4050, L501.9985, L502.0250 #### [facility] [address] [place], [place], [address] Microalbumin/creat ratio urO rdered By: Carol Flores on 04-07-2025 Urine microalbumin/creatini ne ratio measurement UNABLE TO CALCULATE mg/g CRE <30 [facility] Potassium measurement (mass/ volume)Ordered By: Carol Flores on 04-07-2025 Potassium (Unsp spec) [Mass/Vol] 3.9 mmol/L 3.3-5.1 [facility] Random urine creatinine sharron urement (mass/volume)Ordered By: Carol Flores on 04-07-2025 Creatinine Unsp time (U) [Mass/Vol] 135.00 mg/dL 28.00-217.0 0 [facility] Serum creatinine measurement (mass/volume)Ordered By: Carol Flores on 04-07-2025 Creatinine [Mass/Vol] 0.60 mg/dL Low 0.70-1.20 [facility] Serum globulin measurementOr dered By: Carol Flores on 04-07-2025 Globulin (S) [Mass/Vol] 2.4 g/dL 2.2-4.2 [facility] Serum glucose measurement (m ass/volume)Ordered By: Carol Flores on 04-07-2025 Glucose [Mass/Vol] 106 mg/dL High 70-99 [facility] Serum or plasma alanine cisneros otransferase (ALT) measurementOrdered By: Carol Flores on 04-07-2025 ALT [Catalytic activity/Vol] 13 U/L <35 [facility] Serum or plasma albumin sharron urement (mass/volume)Ordered By: Carol Flores on 04-07-2025 Albumin [Mass/Vol] 4.2 g/dL 3.4-4.8 [facility] Serum or plasma albumin/glob ulin mass ratioOrdered By: Carol Flores on 04-07-2025 Albumin/Globulin [Mass ratio] 1.7 {ratio} 0.9-2.4 [facility] Serum or plasma alkaline bryan sphatase measurementOrdered By: Carol Flores on 04-07-2025 ALP [Catalytic activity/Vol] 65 U/L 35-104 [facility] Serum or plasma calcium sharron urement (mass/volume)Ordered By: Carol Flores on 04-07-2025 Calcium [Mass/Vol] 9.0 mg/dL 7.6-11.0 [facility] Serum or plasma urea nitroge n measurement (mass/volume)Ordered By: Carol Flores on 04-07-2025 Urea nitrogen [Mass/Vol] 14 mg/dL 4-19 [facility] Sodium levelOrdered By: Carol Flores on 04-07-2025 Sodium [Moles/Vol] 141 mmol/L 133-145 [facility] Total proteinOrdered By: Cheryl Flores on 04-07-2025 Protein [Mass/Vol] 6.6 g/dL 5.9-8.4 [facility] Urine albumin measurement [facility] detection limit of 20 mg/L or less (mass/volume)Ordered By: Carol Flores on 04-07-2025 Albumin DL <= 20 mg/L (U) [Mass/Vol] < 12.0 mg/L <20 mg/L [facility] Comprehensive Metabolic Prof ilon 10-03-2024 Albumin [Mass/Vol] 3.5 g/dL Normal 3.2-5.0 [facility] Comment on above: Performed By: #### L 500.4050, L502.0250, L501.9596, L501.9930, L500.9856 #### [facility] [address] [place], [place] [address], [address] Albumin/Globulin [Mass ratio] 1.1 {ratio} Normal 0.9-2.4 [facility] Comment on above: Performed By: #### L 500.4050, L502.0250, L501.9520, L501.9985, L500.4100 #### [facility] [address] [place], [address] ALK P 65 U/L Normal 45-117 [facility] Comment on above: Performed By: #### L 500.4050, L502.0250, L501.9520, L501.9985, L500.4100 #### [facility] [address] [place], [address] ALT [Catalytic activity/Vol] 18 U/L Normal 13-56 [facility] Comment on above: Performed By: #### L 500.4050, L502.0250, L501.9520, L501.9985, L500.4100 #### [facility] [address] [place], [address] AST [Catalytic activity/Vol] 14 U/L Low 15-37 [facility] Comment on above: Performed By: #### L 500.4050, L502.0250, L501.9520, L501.9985, L500.4100 #### [facility] [address] [place], [address] Bilirubin [Mass/Vol] 0.80 mg/dL Normal 0.20-1.00 [facility] Comment on above: Result Comment: For patients on eltrombopag therapy, use of Dimension [place] TBIL is not recommended. Performed By: #### L 500.4050, L502.0250, L501.9520, L501.9985, L500.4100 #### [facility] [address] [place], [address] BUN/CRE 26.8 RATIO High 10-20 [facility] Comment on above: Performed By: #### L 500.4050, L502.0250, L501.9520, L501.9985, L500.4100 #### [facility] [address] [place], [address] CA,Total 8.7 mg/dL Normal 8.5-10.1 [facility] Comment on above: Performed By: #### L 500.4050, L502.0250, L501.9520, L501.9985, L500.4100 #### [facility] [address] [place], [address] Chloride [Moles/Vol] 107 mmol/L Normal 98-107 [facility] Comment on above: Performed By: #### L 500.4050, L502.0250, L501.9520, L501.9985, L500.4100 #### [facility] [address] [place], [address] CO2 [Moles/Vol] 28.0 mmol/L Normal 21.0-32.0 [facility] Comment on above: Performed By: #### L 500.4050, L502.0250, L501.9520, L501.9985, L500.4100 #### [facility] [address] [place], [address] Creatinine [Mass/Vol] 0.60 mg/dL Normal 0.55-1.02 [facility] Comment on above: Result Comment: The validity of the calculated GFR GFRAA in patients over 70 years has not been determined. Clinical correlation is essential. Performed By: #### L 500.4050, L502.0250, L501.9520, L501.9985, L500.4100 #### [facility] [address] [place], [address] EST GFR - AA 132 mL/min Normal >60 [facility] Comment on above: Result Comment: Afri can [place] GFR Calc Performed By: #### L 500.4050, L502.0250, L501.9520, L501.9985, L500.4100 #### [facility] [address] [place], [address] GAP 4 Low 5-15 [facility] Comment on above: Performed By: #### L 500.4050, L502.0250, L501.9520, L501.9985, L500.4100 #### [facility] [address] [place], [address] GFR/1.73 sq M.predicted among non-blacks MDRD (S/P/Bld) [Vol rate/Area] 109 mL/min/{1.73_m2} Normal >60 [facility] Comment on above: Result Comment: Non- GFR Calc Performed By: #### L 500.4050, L502.0250, L501.9520, L501.9985, L500.4100 #### [facility] [address] [place], [address] Globulin (S) [Mass/Vol] 3.2 g/dL Normal 2.2-4.2 [facility] Comment on above: Performed By: #### L 500.4050, L502.0250, L501.9520, L501.9985, L500.4100 #### [facility] [address] [place], [address] Glucose [Mass/Vol] 109 mg/dL High 74-106 [facility] Comment on above: Result Comment: Fast ing Glucose result from 100 to 125 mg/dL suggests IMPAIRED HOMEOSTASIS per A.D.A. criteria. Performed By: #### L 500.4050, L502.0250, L501.9520, L501.9985, L500.4100 #### [facility] [address] [place], [address] Potassium [Moles/Vol] 4.4 mmol/L Normal 3.5-5.1 [facility] Comment on above: Performed By: #### L 500.4050, L502.0250, L501.9520, L501.9985, L500.4100 #### [facility] [address] [place], [address] Sodium [Moles/Vol] 139 mmol/L Normal 136-145 [facility] Comment on above: Performed By: #### L 500.4050, L502.0250, L501.9520, L501.9985, L500.4100 #### [facility] [address] [place], [address] T PROT 6.7 g/dL Normal 6.4-8.2 [facility] Comment on above: Performed By: #### L 500.4050, L502.0250, L501.9520, L501.9985, L500.4100 #### [facility] [address] [place], [address] Urea nitrogen [Mass/Vol] 16 mg/dL Normal 7-18 [facility] Comment on above: Performed By: #### L 500.4050, L502.0250, L501.9520, L501.9985, L500.4100 #### [facility] [address] [place], [address] Hemoglobin A1con 10-03-2024 HbA1c (Bld) [Mass fraction] 6.4 % High 3.8-5.6 [facility] Comment on above: Result Comment: Norm al < 5.7 % Prediabetic 5.7 - 6.4 % Diabetic >or= 6.5 % Please note range changes. Performed By: #### L 500.4050, L502.0250, L501.9520, L501.9985, L500.4100 #### [facility] [address] [place], [address] Lipid Profileon 10-03-2024 Cholesterol [Mass/Vol] 160 mg/dL Normal 200 [facility] Comment on above: Result Comment: <200 mg/dL Desirable 200-240 mg/dL Borderline >240 mg/dL High Risk Performed By: #### L 500.4050, L502.0250, L501.9520, L501.9985, L500.4100 #### [facility] [address] [place], [address] Cholesterol in HDL [Mass/Vol] 75 mg/dL Normal [facility] Comment on above: Result Comment: The drugs N-Acetylcysteine and Metamizole may falsely depress this assay. Reference Range HDL <40 mg/dL Low HDL Cholesterol HDL >or= 60 mg/dL High HDL Cholesterol Performed By: #### L 500.4050, L502.0250, L501.9520, L501.9985, L500.4100 #### [facility] [address] [place], [address] Cholesterol in LDL [Mass/Vol] 73 mg/dL Normal 0-130 [facility] Comment on above: Performed By: #### L 500.4050, L502.0250, L501.9520, L501.9985, L500.4100 #### [facility] [address] [place], [address] Cholesterol in VLDL [Mass/Vol] 12 mg/dL Normal 5-40 [facility] Comment on above: Performed By: #### L 500.4050, L502.0250, L501.9520, L501.9985, L500.4100 #### [facility] [address] [place], [address] Triglyceride [Mass/Vol] 59 mg/dL Normal [facility] Comment on above: Result Comment: The drugs N-Acetylcysteine and Metamizole may falsely depress this assay. Serum Triglycerides Reference Interval Normal <150 mg/dL Borderline high 150 - 199 mg/dL High 200 - 499 mg/dL Very High > or = 500 mg/dL Performed By: #### L 500.4050, L502.0250, L501.9520, L501.9985, L500.4100 #### [facility] [address] [place], [address] Microalb:Creat Ratio,Random URon 10-03-2024 Creatinine [Mass/Vol] 116.00 mg/dL Normal NO RAN GE EST. [facility] Comment on above: Performed By: #### L 500.4050, L502.0250, L501.9520, L501.9985, L500.4100 #### [facility] [address] [place], [address] MALB:CRE 9.7 mg/g CRE Normal <30 mg/g CRE [facility] Comment on above: Performed By: #### L 500.4050, L502.0250, L501.9520, L501.9985, L500.4100 #### [facility] [address] [place], [address] MICROALBUMIN,UR 11.3 mg/L Normal NO RANGE EST. [facility] Comment on above: Performed By: #### L 500.4050, L502.0250, L501.9520, L501.9985, L500.4100 #### [facility] [address] [place], [address] Thyroid Stim Hormone (TSH)on 10-03-2024 TSH 0.826 uIU/mL Normal 0.358-3.740 [facility] Comment on above: Performed By: #### L 500.4050, L502.0250, L501.9520, L501.9985, L500.4100 #### [facility] [address] [place], [address] SCRN MAMM (CAD)W/TAMMY BILATo n 04-29-2024 SCRN MAMM (CAD)W/TAMMY BILAT [facility] [address] [place] [address] SCRN MAMM (CAD)W/TAMMY BILAT MR#: [id number] Acct: [id number] Name: YUNIER FUNEZ Rep #: [id number] : 1965 F 58 From: Rafael jordan MD PCP: Dr. Carol Flores MD Status: [facility] Study: SCRN MAMM (CAD)W/TAMMY BILAT Date of Exam: 03/17 Exam# [id number] Ordering Dr: Carol Flores MD [id number] MAMMOGRAPHY - BILATERAL SCREENING REASON FOR EXAM: Female, 58 years old. Routine annual screening examination. PERTINENT HISTORY: Non-contributory. TECHNIQUE: Digital bilateral breast tammy (3D mammographic acquisition) in the CC and MLO projections. 2-D mediolateral oblique (MLO) and craniocaudad (CC) views of both breasts were obtained. CAD: Full Field Digital Mammography with Computer Added Detection was performed. COMPARISON: Comparison is made with prior study dated April 18, 2023 and April 17, 2022. FINDINGS: Breast Composition: The breasts are heterogeneously dense, which may obscure small masses. There are no dominant masses or suspicious calcifications. Stable small benign-appearing bilateral axillary lymph nodes. No other significant abnormalities are identified. There has been no significant change since the prior study. BI/SCRN MAMM (CAD)W/TAMMY BILAT IMPRESSION: Stable bilateral screening mammogram. Yearly follow-up mammogram recommended. (A) ASSESSMENT CATEGORY: BIRADS Category 2: Benign. A letter regarding these results will be sent to the patient by the facility within 30 days. Approximately 10% of breast cancers are not detected by mammography. A normal mammogram should not delay biopsy of a clinically suspicious abnormality. [id number] Electronically Signed: Rafael Wood MD at 8:21 EDT , CC: Dr. aCrol Flores MD Stone Polisher: Signed Normal [facility] CNOVon 12-17-2023 CNOV Office Visit (GENSWS ) -- YUNIER FUNEZ ([id number]) 1965 F Date Time Provider Department 12/17/23 11:45 AM DEEPIKA CABRERA During your visit today, we recorded the following information about you: Temperature Pulse Blood pressure Weight 97.8 degrees 74/minute 128/60 64.2 kg Height 1.594 m Deepika Cabrera MD 12/18/2023 3:51 PM Signed Yunier Funez 1965 REFERRING PHYSICIAN: Carol Flores MD CHIEF COMPLAINT: Consult (Abnormal thyroid ultrasound.) HPI: The patient is a 58 year old female presents with concern of abnormal US of thyroid gland. US 10/11/2023 (from outside facility) Right thyroid 5.2 x 2.1x 1.6 heterogeneous echotexture with normal vascularity upper thyroid stable 3 mm cysts Left thyroid 5.3 x 2.2 x 1.6 heterogeneous echotexture with normal fasculatiry. Heterogeneous 3-8mm conplex nodules with the larges nodule increased in size since the previous study Isthmus 3mm. There is satble 8 x 9 x 4mm cyst Impresion: slight larger left throid complex nodule sinc eht previous study, right thyroid and isthmus cysti lesion are relatively stable She notes no family history of thyroid cancer. She denies swallowing problems. She denies hoarseness. She denies globus symptoms. Given the ultrasound findings, there is no indication for thyroid biopsy PAST MEDICAL HISTORY Diagnosis Date Abnormal mammogram of both breasts Abnormal thyroid ultrasound 10/11/2023 performed at [facility] Diabetes (HCC) History of adenomatous polyp of colon 2019 repeat 5 years Hypercholesterolemia Hypertension Nickel allergy Osteoarthritis of right wrist Seasonal allergies Thyroid nodule Type 2 diabetes mellitus (HCC) Vitamin D deficiency PAST SURGICAL HISTORY Procedure Laterality Date APPENDECTOMY HX 1977 COLONOSCOPY 2019 adenomatous polyp, repeat 5 years Current Outpatient Medications Medication Sig Insulin [place], Disposable, (BD ULTRA-FINE LAKIA PEN NEEDLE) 32 gauge x 5/32 1 Each once daily. magnesium oxide 400 mg magnesium tab Take 1 tablet by mouth daily with lunch. pioglitazone (ACTOS) 15 mg tablet Take 15 mg by mouth daily at bedtime. cholecalciferol (VITAMIN D-3) 50 mcg (2,000 unit) tablet Take 2,000 Units by mouth once daily. diclofenac (VOLTAREN) 1 % topical gel Apply 2 g to affected area four times daily. dapagliflozin propanediol (FARXIGA) 10 mg tablet Take 10 mg by mouth daily with breakfast. fexofenadine (SHAY ALLERGY) 180 mg tablet Take 180 mg by mouth once daily. rosuvastatin (CRESTOR) 5 mg tablet Take 20 mg by mouth once daily. LIRAGLUTIDE (VICTOZA 3-TIMOTEO SUBCUTANEOUS) Inject 1.8 mL subcutaneously daily at bedtime. losartan (COZAAR) 25 mg tablet Take 25 mg by mouth once daily. acarbose (PRECOSE) 50 mg tablet Take 25 mg by mouth three times daily with meals. metFORMIN (GLUCOPHAGE) 500 mg tablet Take 500 mg by mouth twice daily with meals. NATEGLINIDE ORAL Take 50 mg by mouth three times daily. (Patient not taking: Reported on 12/17/2023) No current facility-administered medications for this visit. ALLERGIES: Nickel PERSONAL HISTORY: Social History Tobacco Use Smoking status: Former Types: Cigarettes Start date: 09/24/1979 Quit date: 09/24/1985 Years since quittin.2 Smokeless tobacco: Never Vaping Use Vaping Use: Never used Substance Use Topics Alcohol use: Yes Comment: socially Drug use: No FAMILY HISTORY Problem Relation Age of Onset Asthma Mother Pneumonia Mother Bronchitis Mother other (other) Father 1/3 if small intestine removed when younger, ? IBD Cancer Father history of blood cancer No Known Problems Brother Asthma Son Hypertension Son Diabetes Maternal Uncle The review of systems data was entered by the nurse and reviewed by ct Nursing Notes: Tameka Paredes RN 12/17/2023 1:02 PM Signed REVIEW OF SYSTEMS: General: The patient denies fatigue, denies weight loss, denies weight gain, denies feeling hot, and denies feelings of cold. Eyes: The patient denies glaucoma, denies eye injury/surgery, wears glasses or contacts. Ear/Nose/Throat: The patient NOTES allergies, NOTES hayfever, denies ear infections, and NOTES bloody noses. Cardiovascular: The patient denies chest pain, denies heart disease, NOTES high blood pressure,denies cardiac stent, denies prior heart attack, denies irregular heart beat, NOTES high cholesterol, denies poor circulation, denies heart failure, other cardiac issues, denies claudication, denies cold feet, denies peripheral arterial stent. Respiratory: The patient denies tuberculosis, denies pneumonia, denies frequent cough, denies pulmonary embolism, denies shortness of breath, and denies coughing up blood. Gastrointestinal: The patient denies difficulty swallowing, denies acid reflux, denies ulcers, denies vomiting, denies jaundice/hepatitis, denies ga (more content not included)... Normal [facility] Colonoscopyon 10-30-2023 Colonoscopy [facility] Gastro[facility] End[facility] Patient Name: Yunier Funez Procedure Date: 10/30/2023 10:58 AM Date of : 1965 Admit Type: Outpatient Age: 57 Gender: Female Note Status: Finalized Procedure: Colonoscopy - screening high risk Indications: High risk colon cancer surveillance: Personal history of colonic polyps Providers: Deepika Cabrera MD Patient Profile: Refer to note in patient chart for documentation of history and physical. Last Colonoscopy: 2018. Referring Physician: Deepika Cabrera MD (Referring MD), Carol Flores (Referring ) Medicines: Midazolam 5 mg IV, Fentanyl 50 micrograms IV Complications: No immediate complications. Requesting Provider: Procedure: Pre-Anesthesia Assessment: - Prior to the procedure, a History and Physical was performed, and patient medications and allergies were reviewed. The patient is competent. The risks and benefits of the procedure and the sedation options and risks were discussed with the patient. All questions were answered and informed consent was obtained. Patient identification and proposed procedure were verified by the physician in the pre-procedure area. Mental Status Examination: alert and oriented. Airway Examination: normal oropharyngeal airway and neck mobility. Respiratory Examination: clear to auscultation. CV Examination: normal. Prophylactic Antibiotics: The patient does not require prophylactic antibiotics. Prior Anticoagulants: The patient has taken no anticoagulant or antiplatelet agents. ASA Grade Assessment: II - A patient with mild systemic disease. After reviewing the risks and benefits, the patient was deemed in satisfactory condition to undergo the procedure. The anesthesia plan was to use moderate sedation / analgesia (conscious sedation). Immediately prior to administration of medications, the patient was re-assessed for adequacy to receive sedatives. The heart rate, respiratory rate, oxygen saturations, blood pressure, adequacy of pulmonary ventilation, and response to care were monitored throughout the procedure. The physical status of the patient was re-assessed after the procedure. After I obtained informed consent, the scope was passed under direct vision. Throughout the procedure, the patient's blood pressure, pulse, and oxygen saturations were monitored continuously. The Colonoscope was introduced through the anus and advanced to the cecum, identified by the appendiceal orifice, IC valve and transillumination. The colonoscopy was performed without difficulty. The patient tolerated the procedure well. The quality of the bowel preparation was unsatisfactory except the rectum/sigmoid/ left and part of transverse colon was good. This precluded visualization of lesions > 1 cm in the right colon and proximal transverse colon. The cecum and rectum was photographed. Moderate Sedation: The administration of moderate sedation was initiated at 11:05 AM. Moderate (conscious) sedation was personally administered by the endoscopist. The following parameters were monitored: oxygen saturation, heart rate, blood pressure, respiratory rate, EKG, adequacy of pulmonary ventilation, and response to care. Total physician intraservice time was 19 minutes. Findings: The perianal and digital rectal examinations were normal. Non-bleeding external and internal hemorrhoids were found. Impression: - Non-bleeding external and internal hemorrhoids. - No specimens collected. Recommendation: - Repeat colonoscopy in 3-5 years for surveillance for colon cleansing preparation inadequacy. - Return to primary care physician PRN. - Patient has a contact number available for emergencies. The signs and symptoms of potential delayed complications were discussed with the patient. Return to normal activities tomorrow. Written discharge instructions were provided to the patient. - Continue present medications. - Resume previous diet. Procedure Code(s): --- Professional --- 67688, Colonoscopy, flexible; diagnostic, including collection of specimen(s) by brushing or washing, when performed (separate procedure) 18297, 59, Moderate sedation services provided by the same physician or other qualified health palliative care physician performing the diagnostic or therapeutic service that the sedation supports, requiring the presence of an independent trained observer to assist in the monitoring of the patient's level of consciousness and physiological status; initial 15 minutes of intraservice time, patient age 5 years or older Diagnosis Code(s): --- Professional --- K64.8, Other hemorrhoids Z86.010, Personal history of colonic polyps Z12.11, Encounter for screening for malignant neoplasm of colon CPT copyright 2020 [employer]. All rights reserved. The codes documented in this report are preliminary and upon roll bucker review may be revised to (more content not included)... Normal [facility] HISTORY PHYSICALon HISTORY PHYSICAL HNO ID: [id number] Author: DEEPIKA CABRERA MD Service: General Surgery Author Type: Physician Type: H&P Filed: 10/30/2023 10:30 Note Text: Yunier Funez 1965 REFERRING PHYSICIAN: Dr. Carol Flores CHIEF COMPLAINT: Consult (Colonoscopy consultation. ) HPI: The patient is a 57 year old female referred for endoscopy. She had a colonoscopy in about 10 years ago for which colon polyp was found. She notes no family history of colon cancer. The patient denies blood in stools, denies abdominal pain, and denies changes in bowel habits. Her last colonoscopy was in 2019, no colon polyps found. I told her that if this colonoscopy reveals no colon polyps; then she will not require another colonoscopy for 10 years. PAST MEDICAL HISTORY PAST MEDICAL HISTORY Diagnosis Date Abnormal mammogram of both breasts Diabetes (HCC) History of adenomatous polyp of colon 2019 repeat 5 years Hypercholesterolemia Hypertension Nickel allergy Osteoarthritis of right wrist Seasonal allergies Thyroid nodule Type 2 diabetes mellitus (HCC) Vitamin D deficiency PAST SURGICAL HISTORY PAST SURGICAL HISTORY Procedure Laterality Date APPENDECTOMY HX 1977 COLONOSCOPY 2019 adenomatous polyp, repeat 5 years CURRENT MEDICATIONS Current Outpatient Medications Medication Sig Insulin [place], Disposable, (BD ULTRA-FINE LAKIA PEN NEEDLE) 32 gauge x 5/32 1 Each once daily. magnesium oxide 400 mg magnesium tab Take 1 tablet by mouth daily with lunch. pioglitazone (ACTOS) 15 mg tablet Take 15 mg by mouth daily at bedtime. cholecalciferol (VITAMIN D-3) 50 mcg (2,000 unit) tablet Take 2,000 Units by mouth once daily. diclofenac (VOLTAREN) 1 % topical gel Apply 2 g to affected area four times daily. dapagliflozin propanediol (FARXIGA) 10 mg tablet Take 10 mg by mouth daily with breakfast. fexofenadine (SHAY ALLERGY) 180 mg tablet Take 180 mg by mouth once daily. rosuvastatin (CRESTOR) 5 mg tablet Take 20 mg by mouth once daily. LIRAGLUTIDE (VICTOZA 3-TIMOTEO SUBCUTANEOUS) Inject 1.8 mL subcutaneously daily at bedtime. losartan (COZAAR) 25 mg tablet Take 25 mg by mouth once daily. acarbose (PRECOSE) 50 mg tablet Take 25 mg by mouth three times daily with meals. metFORMIN (GLUCOPHAGE) 500 mg tablet Take 500 mg by mouth twice daily with meals. NATEGLINIDE ORAL Take 50 mg by mouth three times daily. (Patient not taking: Reported on 10/24/2023) No current facility-administered medications for this visit. ALLERGIES: Nickel PERSONAL HISTORY: SOCIAL HISTORY Social History Tobacco Use Smoking status: Former Types: Cigarettes Start date: 09/24/1979 Quit date: 09/24/1985 Years since quittin.1 Smokeless tobacco: Never Vaping Use Vaping Use: Never used Substance Use Topics Alcohol use: Yes Comment: socially Drug use: No FAMILY HISTORY FAMILY HISTORY Problem Relation Age of Onset Asthma Mother Pneumonia Mother Bronchitis Mother other (other) Father 1/3 if small intestine removed when younger, ? IBD Cancer Father history of blood cancer No Known Problems Brother Asthma Son Hypertension Son Diabetes Maternal Uncle The review of systems data was entered by the nurse and reviewed by ct Nursing Notes: Tameka Paredes RN 10/24/2023 3:27 PM Signed REVIEW OF SYSTEMS: General: The patient denies fatigue, denies weight loss, denies weight gain, denies feeling hot, and denies feelings of cold. Eyes: The patient denies glaucoma, denies eye injury/surgery, wears glasses or contacts. Ear/Nose/Throat: The patient NOTES allergies, NOTES hayfever, denies ear infections, and NOTES bloody noses. Cardiovascular: The patient denies chest pain, denies heart disease, NOTES high blood pressure,denies cardiac stent, denies prior heart attack, denies irregular heart beat, NOTES high cholesterol, denies poor circulation, denies heart failure, other cardiac issues, denies claudication, denies cold feet, denies peripheral arterial stent. Respiratory: The patient denies tuberculosis, denies pneumonia, denies frequent cough, denies pulmonary embolism, denies shortness of breath, and denies coughing up blood. Gastrointestinal: The patient denies difficulty swallowing, denies acid reflux, denies ulcers, denies vomiting, denies jaundice/hepatitis, denies gallbladder problems, denies black or tarry stools, denies hemorrhoids, denies bleeding from rectum, denies diverticulitis, denies constipation, denies diarrhea, denies loss of stool control, and denies hernias. Kidney/Bladder: The patient denies kidney stones, denies urine infections, and denies bloody urine. Skin: The patient denies a history of skin cancer, denies bleeding/changing moles, and denies a history of skin rash. Neurologic: The patient denies a history of epilepsy/convulsions, denies headaches, denies head/spinal injuries, and denies stroke/TIA. Psychiatric: The patient denies psychiatric medic (more content not included)... Normal [facility] NURSING PROGon 10-30-2023 NURSING PROG HNO ID: [id number] Author: INDU FERRARA RN Service: ? Author Type: Registered Nurse Type: Nursing Progress Note Filed: 10/30/2023 11:59 Note Text: Blood sugar checked with her own Dexcom 36, result 93. Is eating randal crackers, water and black coffee. at bedside now as well. Normal [facility] NURSING PROG HNO ID: [id number] Author: TERESSA LANDERS RN Service: ? Author Type: Registered Nurse Type: Nursing Progress Note Filed: 10/30/2023 11:40 Note Text: Patient arrived laying on left side. Patient does not appear to be in any pain at this time and denies pain when asked. Abdomen appears to be nondistended and soft to palpation. Patient encouraged to belch and pass gas as needed. Normal [id number] -- YUNIER FUNEZ ([id number]) 1965 F Date Time Provider Department 10/25/23 DEEPIKA CABRERA During your visit today, we recorded the following information about you: Bertha Quintanilla 10/25/2023 9:59 AM Signed 10/29/2023 colon asc Allergies As of Date: 10/25/2023 Noted Allergy Reaction NICKEL 10/23/2023 16 - Unknown Date Reviewed: 10/24/2023 Reviewed by: Tameka Paredes RN - Fully Assessed Reason for Visit: 10/29/2023 colon asc [Other] Prescriptions as of 07/29/2024 - Insulin [place], Disposable, (BD ULTRA-FINE LAKIA PEN NEEDLE) 32 gauge x 5/32 1 Each once daily. - magnesium oxide 400 mg magnesium tab Take 1 tablet by mouth daily with lunch. - pioglitazone (ACTOS) 15 mg tablet Take 15 mg by mouth daily at bedtime. - cholecalciferol (VITAMIN D-3) 50 mcg (2,000 unit) tablet Take 2,000 Units by mouth once daily. - diclofenac (VOLTAREN) 1 % topical gel Apply 2 g to affected area four times daily. - dapagliflozin propanediol (FARXIGA) 10 mg tablet Take 10 mg by mouth daily with breakfast. - fexofenadine (SHAY ALLERGY) 180 mg tablet Take 180 mg by mouth once daily. - rosuvastatin (CRESTOR) 5 mg tablet Take 20 mg by mouth once daily. - LIRAGLUTIDE (VICTOZA 3-TIMOTEO SUBCUTANEOUS) Inject 1.8 mL subcutaneously daily at bedtime. - losartan (COZAAR) 25 mg tablet Take 25 mg by mouth once daily. - NATEGLINIDE ORAL Take 50 mg by mouth three times daily. - acarbose (PRECOSE) 50 mg tablet Take 25 mg by mouth three times daily with meals. - metFORMIN (GLUCOPHAGE) 500 mg tablet Take 500 mg by mouth twice daily with meals. Problem List As Of Date: 10/25/2023 (None) Encounter Status:Closed by GLADYS ECHEVERRIA on 07/29/24 Normal [facility] CNOVon 10-24-2023 CNOV Office Visit (GENSWS ) -- YUNIER FUNEZ ([id number]) 1965 F Date Time Provider Department 10/24/23 3:15 PM DEEPIKA CABRERA During your visit today, we recorded the following information about you: Temperature Pulse Blood pressure Weight 97.5 degrees 82/minute 122/78 63.1 kg Height 1.575 m Tameka Paredes RN 10/24/2023 3:27 PM Signed REVIEW OF SYSTEMS: General: The patient denies fatigue, denies weight loss, denies weight gain, denies feeling hot, and denies feelings of cold. Eyes: The patient denies glaucoma, denies eye injury/surgery, wears glasses or contacts. Ear/Nose/Throat: The patient NOTES allergies, NOTES hayfever, denies ear infections, and NOTES bloody noses. Cardiovascular: The patient denies chest pain, denies heart disease, NOTES high blood pressure,denies cardiac stent, denies prior heart attack, denies irregular heart beat, NOTES high cholesterol, denies poor circulation, denies heart failure, other cardiac issues, denies claudication, denies cold feet, denies peripheral arterial stent. Respiratory: The patient denies tuberculosis, denies pneumonia, denies frequent cough, denies pulmonary embolism, denies shortness of breath, and denies coughing up blood. Gastrointestinal: The patient denies difficulty swallowing, denies acid reflux, denies ulcers, denies vomiting, denies jaundice/hepatitis, denies gallbladder problems, denies black or tarry stools, denies hemorrhoids, denies bleeding from rectum, denies diverticulitis, denies constipation, denies diarrhea, denies loss of stool control, and denies hernias. Kidney/Bladder: The patient denies kidney stones, denies urine infections, and denies bloody urine. Skin: The patient denies a history of skin cancer, denies bleeding/changing moles, and denies a history of skin rash. Neurologic: The patient denies a history of epilepsy/convulsions, denies headaches, denies head/spinal injuries, and denies stroke/TIA. Psychiatric: The patient denies psychiatric medications, denies depression, and denies voices, denies substance abuse. Endocrine: The patient denies thyroid disorders, NOTES diabetes, and denies hormonal problems. Hematologic: The patient denies a history of bruising, denies bleeding, and denies anemia, denies blood clots. Infections: The patient denies a history of measles and mumps, denies rheumatic fever, and denies sexually transmitted diseases. Musculoskeletal: The patient denies back pain/injury, denies back problems, denies sciatica, denies knee/foot trouble, NOTES arthritis, or denies gout. When was patient's last Mammogram screening? 03/2023 Last Colonoscopy: 2019 PILAR Beverly, Deepika Graves MD 10/27/2023 1:18 PM Signed HISTORY AND PHYSICAL Yunier Funez 1965 REFERRING PHYSICIAN: Dr. Carol Flores CHIEF COMPLAINT: Consult (Colonoscopy consultation. ) HPI: The patient is a 57 year old female referred for endoscopy. She had a colonoscopy in about 10 years ago for which colon polyp was found. She notes no family history of colon cancer. The patient denies blood in stools, denies abdominal pain, and denies changes in bowel habits. Her last colonoscopy was in 2019, no colon polyps found. I told her that if this colonoscopy reveals no colon polyps; then she will not require another colonoscopy for 10 years. PAST MEDICAL HISTORY Diagnosis Date Abnormal mammogram of both breasts Diabetes (HCC) History of adenomatous polyp of colon 2019 repeat 5 years Hypercholesterolemia Hypertension Nickel allergy Osteoarthritis of right wrist Seasonal allergies Thyroid nodule Type 2 diabetes mellitus (HCC) Vitamin D deficiency PAST SURGICAL HISTORY Procedure Laterality Date APPENDECTOMY HX 1977 COLONOSCOPY 2019 adenomatous polyp, repeat 5 years Current Outpatient Medications Medication Sig Insulin [place], Disposable, (BD ULTRA-FINE [place] PEN NEEDLE) 32 gauge x 5/32 1 Each once daily. magnesium oxide 400 mg magnesium tab Take 1 tablet by mouth daily with lunch. pioglitazone (ACTOS) 15 mg tablet Take 15 mg by mouth daily at bedtime. cholecalciferol (VITAMIN D-3) 50 mcg (2,000 unit) tablet Take 2,000 Units by mouth once daily. diclofenac (VOLTAREN) 1 % topical gel Apply 2 g to affected area four times daily. dapagliflozin propanediol (FARXIGA) 10 mg tablet Take 10 mg by mouth daily with breakfast. fexofenadine (SHAY ALLERGY) 180 mg tablet Take 180 mg by mouth once daily. rosuvastatin (CRESTOR) 5 mg tablet Take 20 mg by mouth once daily. LIRAGLUTIDE (VICTOZA 3-TIMOTEO SUBCUTANEOUS) Inject 1.8 mL subcutaneously daily at bedtime. losartan (COZAAR) 25 mg tablet Take 25 mg by mouth once daily. acarbose (PRECOSE) 50 mg tablet Take 25 mg by mouth three times daily with meals. metFORMIN (GLUCOPHAGE) 500 mg tablet Take 500 mg by mouth twice daily with meals. (more content not included)... Normal [facility] Basophil percentageOrdered B y: Carolgayle Flores on 09-21-2023 Bilirubin [Mass/Vol] 0.80 mg/dL 0.20-1.00 [facility] Comment on above: For patients on eltr ombopag therapy, use of Dimension [place] TBIL is not recommended. Chloride [Moles/Vol] 108 mmol/L 98-107 [facility] Cholesterol [Mass/Vol] 195 mg/dL <200 [facility] Comment on above: <200 mg/dL Desirable 200-240 mg/dL Borderline >240 mg/dL High Risk Glucose [Mass/Vol] 103 mg/dL 74-106 [facility] Comment on above: Fasting Glucose resu lt from 100 to 125 mg/dL suggests IMPAIRED HOMEOSTASIS per A.D.A. criteria. Potassium [Moles/Vol] 3.7 mmol/L 3.5-5.1 [facility] Protein [Mass/Vol] 6.6 g/dL 6.4-8.2 [facility] Sodium [Moles/Vol] 144 mmol/L 136-145 [facility] Triglyceride [Mass/Vol] 122 mg/dL <199 [facility] Comment on above: The drugs N-Acetylcy steine and Metamizole may falsely depress this assay.Serum Triglycerides Reference Interval Normal <150 mg/dL Borderline high 150 - 199 mg/dL High 200 - 499 mg/dL Very High > or = 500 mg/dL Laboratory - Chemistry and C hemistry - challengeOrdered By: Carol Flores on 09-21-2023 ALP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 Date Encounter Type Care Provider Facility Start: 04-30-2025 kenyatta Flores Facility:[facility] Start: 04-07-2025 End: 04-07-[address] Carol Flores MD Work Phone: -[facility] Start: 04-07-2025 End: 04-07-[address] Carol Flores MD -[facility] Start: 04-07-2025 End: 04-07-2025 kenyatta Flores Facility:[facility] Start: 10-03-2024 End: 10-03-2024 kenyatta Flores Facility:[facility] Start: 04-29-2024 End: 04-29-2024 kenyatta Flores Facility:[facility] Start: 12-17-2023 End: 12-17-2023 ambulatory CAROL FLORES Facility:[facility] Start: 12-17-2023 End: 12-17-2023 Patient encounter procedure Deepika Cabrera MD Work Phone: General Surgery Comment on above: Multinodular goiter (Primary Dx) Start: 10-30-2023 End: 10-30-2023 ambulatory CAROL Gurinder FLORES Facility:[facility] Start: 10-30-2023 End: 10-30-2023 Subsequent hospital visit by physician Deepika Cabrera MD Work Phone: Ambulatory Surgery Comment on above: History of colonic p olyps [Z86.010] Start: 10-25-2023 End: 07-29-2024 Telephone encounter Deepika Cabrera MD Work Phone: General Surgery Comment on above: 10/29/2023 colon asc Start: 10-24-2023 End: 10-24-2023 ambulatory [facility] Facility:[facility] Start: 10-24-2023 End: 10-24-2023 Patient encounter procedure Deepika Cabrera MD Work Phone: General Surgery Comment on above: History of colonic p olyps (Primary Dx) Start: 10-11-2023 End: 10-11-2023 ambulatory [facility] Work Phone: Start: 10-11-2023 End: 10-11-2023 Patient encounter procedure [facility]-Ultrasound, [facility] Work Phone: Start: 09-21-2023 End: 09-21-2023 ambulatory [facility] Work Phone: Start: 09-21-2023 End: 09-21-2023 Patient encounter procedure [facility]atory, [place] Work Phone: Start: 04-18-2023 End: 04-18-2023 ambulatory [facility] Work Phone: Start: 04-18-2023 End: 04-18-2023 Patient encounter procedure [facility]-Outpatient Breast Imaging Work Phone: Start: 04-02-2023 End: 04-02-2023 ambulatory [facility] Work Phone: Start: 04-02-2023 End: 04-02-2023 [facility] Start: 10-05-2022 End: 10-05-2022 ambulatory [facility] Work Phone: Start: 10-05-2022 End: 10-05-2022 Patient encounter procedure [facility]-Ultrasound, [facility] Start: 09-21-2022 End: 09-21-2022 ambulatory [facility] Work Phone: Start: 09-21-2022 End: 09-21-2022 Patient encounter procedure [facility] Start: 05-12-2022 End: 05-12-2022 ambulatory [facility] Work Phone: Start: 05-12-2022 End: 05-12-2022 Discharged Recurring [facility]-Occupational Therapy Start: 04-17-2022 End: 04-17-2022 Patient encounter procedure [facility]-Outpatient Breast Imaging Start: 04-10-2022 End: 04-10-2022 Patient encounter procedure [facility]-Radiology, [place] Start: 07-20-2017 End: 07-21-2017 Emergency department patient visit DIONICIO Hernandez [facility] Procedures Date Procedure Procedure Detail Performing Clinician Start: 10-30-2023 Colonoscopy flx dx w /collj spec when pfrmd Deepika Cabrera MD Work Phone: Start: 10-30-2023 Colonoscopy Deepika Cabrera MD Work Phone: Start: 10-11-2023 US scan of thyroid Start: 04-18-2023 Screening mammography Start: 10-05-2022 US scan of thyroid Start: 04-17-2022 Screening mammography Start: 04-10-2022 Plain x-ray of wrist Start: 09-03-2019 Colonoscopy Deepika Cabrera MD Work Phone: Plan of Treatment Date Care Activity Detail Author Start: 05-07-2027 Urine microalbumin profile DTaP,Tdap,Td Vaccine (2 - Td or Tdap) [facility] Start: 10-30-2024 Screening for malign ant neoplasm of colon [facility] Start: 05-25-2024 Covid-19 Vaccine ( season) Covid-19 Vaccine ( season) [facility] Start: 05-25-2024 Influenza vaccination Influenza Vacc ine (#1) [facility] Start: 2023 RSV Vaccine (1 - 1-d ose 60+ series) RSV Vaccine (1 - 1-dose 60+ series) [facility] Start: 2023 RSV Vaccine (1 - Ris k 60-74 years 1-dose series) RSV Vaccine (1 - Risk 60-74 years 1-dose series) [facility] Start: 09-24-2023 Depression Assessment Depression Ass essment [facility] Start: 05-25-2023 Covid-19 Vaccine ( season) Covid-19 Vaccine ( season) [facility] Start: 05-25-2023 Influenza vaccination Influenza Vacc ine (#1) [facility] Start: 09-03-2020 Screening for malign ant neoplasm of colon [facility] Start: 07-20-2020 Diabetes Screening Diabetes Screenin g [facility] Start: 2008 Lipid panel Lipid Screening [facility] Start: 2008 Screening for malign ant neoplasm of colon [facility] Start: 2003 Screening for malign ant neoplasm of breast Mammogram Screening [facility] Start: 1993 Screening for malign ant neoplasm of cervix HPV Testing [facility] Start: 1984 Screening for malign ant neoplasm of cervix [facility] Start: 1981 Anxiety Screening Anxiety Screening [facility] Start: 1981 Depression Screening Depression Scre ening [facility] Start: 1981 Hepatitis C screening [facility] Start: 1981 HIV screening HIV Screening [facility] End: 10-24-2024 Screening colonoscopy COLONOSCOPY SCREENING Endoscopy Routine History of colonic polyps 1 Occurrences starting 10/24/2023 until 10/24/2024 [facility] Work Phone: Comment on above: 1 Occurrences starti ng 10/24/2023 until [facility] Immunization Date Immunization Notes Care Provider Fa cility 10-13-2022 influenza virus vacc ine, unspecified formulation Deepika Cabrera MD Work Phone: [facility] Payers Date Payer Category Payer Self-pay [id number] 2020 Unknown ANGELICA DIAZ PPO [id number] 2020-Present [phone] [address] [place] [address] PPO [id number] 2016 Unknown [id number] Self-pay [id number] Unknown [id number] Unknown [id number] Unknown [id number] Unknown [id number] Social History Date Type Detail Facility Tobacco smoking stat [facility] Unknown if ever smoked [facility] Work Phone: Start: 1965 Sex Assigned At Female W [facility] Start: 10-24-2023 [facility] Start: 09-24-1979 End: 09-24-1985 History of tobacco use Current smoker [facility] Start: 09-24-1979 End: 09-24-1985 History of tobacco use Cigarette Smoker [facility] Start: 10-24-2023 Tobacco use and exposure Smokeless tobacco non-user [facility] Start: 10-24-2023 End: 12-17-2023 Alcohol intake Current drinker of alcohol (finding) [facility] Start: 10-24-2023 End: 12-17-2023 History of Social function [facility] Start: 10-24-2023 End: 12-17-2023 Tobacco use panel [facility] National Score (1-10 0), lower number is lower risk 75 [facility] Start: 07-20-2017 Alcohol Comment socially [facility] Start: 1965 Sex Assigned At Not on file [facility] Start: 11-19-2023 Gender identity Identifies as female gender (finding) [facility] Start: 11-19-2023 Sexual orientation Heterosexual (aleksandra edmondson) [facility] Tobacco smoking stat us [facility] Unknown if ever smoked [facility] Work Phone: Medical Equipment Procedure Code Equipment Code Equipment Origin al Text Equipment Identifier Dates 1 Each once daily. Comment on above: 1 Each once daily. Clinical Notes 10-24-2023 to 12-17-2023 Tameka Paredes, PILAR - 12/17/2023 1:02 PM Deepika Ugarte MD - 12/17/2023 12:03 PM Indu Gan RN - 10/30/2023 11:59 AM Teressa Duong RN - 10/30/2023 11:40 AM EST Note Date & Type Note Facility 12-17-2023 Nurse Note REVIEW OF SYSTEMS: General: The patient denies fatigue, denies weight loss, denies weight gain, denies feeling hot, and denies feelings of cold. Eyes: The patient denies glaucoma, denies eye injury/surgery, wears glasses or contacts. Ear/Nose/Throat: The patient NOTES allergies, NOTES hayfever, denies ear infections, and NOTES bloody noses. Cardiovascular: The patient denies chest pain, denies heart disease, NOTES high blood pressure,denies cardiac stent, denies prior heart attack, denies irregular heart beat, NOTES high cholesterol, denies poor circulation, denies heart failure, other cardiac issues, denies claudication, denies cold feet, denies peripheral arterial stent. Respiratory: The patient denies tuberculosis, denies pneumonia, denies frequent cough, denies pulmonary embolism, denies shortness of breath, and denies coughing up blood. Gastrointestinal: The patient denies difficulty swallowing, denies acid reflux, denies ulcers, denies vomiting, denies jaundice/hepatitis, denies gallbladder problems, denies black or tarry stools, denies hemorrhoids, denies bleeding from rectum, denies diverticulitis, denies constipation, denies diarrhea, denies loss of stool control, and denies hernias. Kidney/Bladder: The patient denies kidney stones, denies urine infections, and denies bloody urine. Skin: The patient denies a history of skin cancer, denies bleeding/changing moles, and denies a history of skin rash. Neurologic: The patient denies a history of epilepsy/convulsions, denies headaches, denies head/spinal injuries, and denies stroke/TIA. Psychiatric: The patient denies psychiatric medications, denies depression, and denies voices, denies substance abuse. Endocrine: The patient denies thyroid disorders, NOTES diabetes, and denies hormonal problems. Hematologic: The patient denies a history of bruising, denies bleeding, and denies anemia, denies blood clots. Infections: The patient denies a history of measles and mumps, denies rheumatic fever, and denies sexually transmitted diseases. Musculoskeletal: The patient denies back pain/injury, denies back problems, denies sciatica, denies knee/foot trouble, denies arthritis, or denies gout. When was patient's last Mammogram screening? 03/2023 Last Colonoscopy: 10/2023 Tameka Paredes RN documented in this encounter [facility] 12-17-2023 Note HNO ID: [id number] Author: DEEPIKA CABRERA MD Service: ? Author Type: Physician Type: Progress Notes Filed: 12/18/2023 15:51 Note Text: Yunier Funez 1965 REFERRING PHYSICIAN: Carol Flores MD CHIEF COMPLAINT: Consult (Abnormal thyroid ultrasound.) HPI: The patient is a 58 year old female presents with concern of abnormal US of thyroid gland. US 10/11/2023 (from outside facility) Right thyroid 5.2 x 2.1x 1.6 heterogeneous echotexture with normal vascularity upper thyroid stable 3 mm cysts Left thyroid 5.3 x 2.2 x 1.6 heterogeneous echotexture with normal fasculatiry. Heterogeneous 3-8mm conplex nodules with the larges nodule increased in size since the previous study Isthmus 3mm. There is satble 8 x 9 x 4mm cyst Impresion: slight larger left throid complex nodule sinc eht previous study, right thyroid and isthmus cysti lesion are relatively stable She notes no family history of thyroid cancer. She denies swallowing problems. She denies hoarseness. She denies globus symptoms. Given the ultrasound findings, there is no indication for thyroid biopsy PAST MEDICAL HISTORY Diagnosis Date Abnormal mammogram of both breasts Abnormal thyroid ultrasound 10/11/2023 performed at [facility] Diabetes (HCC) History of adenomatous polyp of colon 2019 repeat 5 years Hypercholesterolemia Hypertension Nickel allergy Osteoarthritis of right wrist Seasonal allergies Thyroid nodule Type 2 diabetes mellitus (HCC) Vitamin D deficiency PAST SURGICAL HISTORY Procedure Laterality Date APPENDECTOMY HX 1977 COLONOSCOPY 2019 adenomatous polyp, repeat 5 years Current Outpatient Medications Medication Sig Insulin [place], Disposable, (BD ULTRA-FINE LAKIA PEN NEEDLE) 32 gauge x 5/32 1 Each once daily. magnesium oxide 400 mg magnesium tab Take 1 tablet by mouth daily with lunch. pioglitazone (ACTOS) 15 mg tablet Take 15 mg by mouth daily at bedtime. cholecalciferol (VITAMIN D-3) 50 mcg (2,000 unit) tablet Take 2,000 Units by mouth once daily. diclofenac (VOLTAREN) 1 % topical gel Apply 2 g to affected area four times daily. dapagliflozin propanediol (FARXIGA) 10 mg tablet Take 10 mg by mouth daily with breakfast. fexofenadine (SHAY ALLERGY) 180 mg tablet Take 180 mg by mouth once daily. rosuvastatin (CRESTOR) 5 mg tablet Take 20 mg by mouth once daily. LIRAGLUTIDE (VICTOZA 3-TIMOTEO SUBCUTANEOUS) Inject 1.8 mL subcutaneously daily at bedtime. losartan (COZAAR) 25 mg tablet Take 25 mg by mouth once daily. acarbose (PRECOSE) 50 mg tablet Take 25 mg by mouth three times daily with meals. metFORMIN (GLUCOPHAGE) 500 mg tablet Take 500 mg by mouth twice daily with meals. NATEGLINIDE ORAL Take 50 mg by mouth three times daily. (Patient not taking: Reported on 12/17/2023) No current facility-administered medications for this visit. ALLERGIES: Nickel PERSONAL HISTORY: Social History Tobacco Use Smoking status: Former Types: Cigarettes Start date: 09/24/1979 Quit date: 09/24/1985 Years since quittin.2 Smokeless tobacco: Never Vaping Use Vaping Use: Never used Substance Use Topics Alcohol use: Yes Comment: socially Drug use: No FAMILY HISTORY Problem Relation Age of Onset Asthma Mother Pneumonia Mother Bronchitis Mother other (other) Father 1/3 if small intestine removed when younger, ? IBD Cancer Father history of blood cancer No Known Problems Brother Asthma Son Hypertension Son Diabetes Maternal Uncle The review of systems data was entered by the nurse and reviewed by ct Nursing Notes: Tameka Paredes RN 12/17/2023 1:02 PM Signed REVIEW OF SYSTEMS: General: The patient denies fatigue, denies weight loss, denies weight gain, denies feeling hot, and denies feelings of cold. Eyes: The patient denies glaucoma, denies eye injury/surgery, wears glasses or contacts. Ear/Nose/Throat: The patient NOTES allergies, NOTES hayfever, denies ear infections, and NOTES bloody noses. Cardiovascular: The patient denies chest pain, denies heart disease, NOTES high blood pressure,denies cardiac stent, denies prior heart attack, denies irregular heart beat, NOTES high cholesterol, denies poor circulation, denies heart failure, other cardiac issues, denies claudication, denies cold feet, denies peripheral arterial stent. Respiratory: The patient denies tuberculosis, denies pneumonia, denies frequent cough, denies pulmonary embolism, denies shortness of breath, and denies coughing up blood. Gastrointestinal: The patient denies difficulty swallowing, denies acid reflux, denies ulcers, denies vomiting, denies jaundice/hepatitis, denies gallbladder problems, denies black or tarry stools, denies hemorrhoids, denies bleeding from rectum, denies diverticulitis, denies constipation, denies diarrhea, denies loss of stool control, and denies hernias. Kidney/Bladder: The patient denies kidney stones, denies urine infections, and denies (more content not included)... [facility] 12-17-2023 History of Presen t illness Narrative Yunier Funez 1965 REFERRING PHYSICIAN: Carol Flores MD CHIEF COMPLAINT: Consult (Abnormal thyroid ultrasound.) HPI: The patient is a 58 year old female presents with concern of abnormal US of thyroid gland. US 10/11/2023 (from outside facility) Right thyroid 5.2 x 2.1x 1.6 heterogeneous echotexture with normal vascularity upper thyroid stable 3 mm cysts Left thyroid 5.3 x 2.2 x 1.6 heterogeneous echotexture with normal fasculatiry. Heterogeneous 3-8mm conplex nodules with the larges nodule increased in size since the previous study Isthmus 3mm. There is satble 8 x 9 x 4mm cyst Impresion: slight larger left throid complex nodule sinc eht previous study, right thyroid and isthmus cysti lesion are relatively stable She notes no family history of thyroid cancer. She denies swallowing problems. She denies hoarseness. She denies globus symptoms. Given the ultrasound findings, there is no indication for thyroid biopsy PAST MEDICAL HISTORY Diagnosis Date Abnormal mammogram of both breasts Abnormal thyroid ultrasound 10/11/2023 performed at [facility] Diabetes (HCC) History of adenomatous polyp of colon 2019 repeat 5 years Hypercholesterolemia Hypertension Nickel allergy Osteoarthritis of right wrist Seasonal allergies Thyroid nodule Type 2 diabetes mellitus (HCC) Vitamin D deficiency PAST SURGICAL HISTORY Procedure Laterality Date APPENDECTOMY HX 1977 COLONOSCOPY 2019 adenomatous polyp, repeat 5 years Current Outpatient Medications Medication Sig Insulin [place], Disposable, (BD ULTRA-FINE LAKIA PEN NEEDLE) 32 gauge x 5/32 1 Each once daily. magnesium oxide 400 mg magnesium tab Take 1 tablet by mouth daily with lunch. pioglitazone (ACTOS) 15 mg tablet Take 15 mg by mouth daily at bedtime. cholecalciferol (VITAMIN D-3) 50 mcg (2,000 unit) tablet Take 2,000 Units by mouth once daily. diclofenac (VOLTAREN) 1 % topical gel Apply 2 g to affected area four times daily. dapagliflozin propanediol (FARXIGA) 10 mg tablet Take 10 mg by mouth daily with breakfast. fexofenadine (SHAY ALLERGY) 180 mg tablet Take 180 mg by mouth once daily. rosuvastatin (CRESTOR) 5 mg tablet Take 20 mg by mouth once daily. LIRAGLUTIDE (VICTOZA 3-TIMOTEO SUBCUTANEOUS) Inject 1.8 mL subcutaneously daily at bedtime. losartan (COZAAR) 25 mg tablet Take 25 mg by mouth once daily. acarbose (PRECOSE) 50 mg tablet Take 25 mg by mouth three times daily with meals. metFORMIN (GLUCOPHAGE) 500 mg tablet Take 500 mg by mouth twice daily with meals. NATEGLINIDE ORAL Take 50 mg by mouth three times daily. (Patient not taking: Reported on 12/17/2023) No current facility-administered medications for this visit. ALLERGIES: Nickel PERSONAL HISTORY: Social History Tobacco Use Smoking status: Former Types: Cigarettes Start date: 09/24/1979 Quit date: 09/24/1985 Years since quittin.2 Smokeless tobacco: Never Vaping Use Vaping Use: Never used Substance Use Topics Alcohol use: Yes Comment: socially Drug use: No FAMILY HISTORY Problem Relation Age of Onset Asthma Mother Pneumonia Mother Bronchitis Mother other (other) Father 1/3 if small intestine removed when younger, ? IBD Cancer Father history of blood cancer No Known Problems Brother Asthma Son Hypertension Son Diabetes Maternal Uncle The review of systems data was entered by the nurse and reviewed by ct Nursing Notes: Tameka Paredes RN 12/17/2023 1:02 PM Signed REVIEW OF SYSTEMS: General: The patient denies fatigue, denies weight loss, denies weight gain, denies feeling hot, and denies feelings of cold. Eyes: The patient denies glaucoma, denies eye injury/surgery, wears glasses or contacts. Ear/Nose/Throat: The patient NOTES allergies, NOTES hayfever, denies ear infections, and NOTES bloody noses. Cardiovascular: The patient denies chest pain, denies heart disease, NOTES high blood pressure,denies cardiac stent, denies prior heart attack, denies irregular heart beat, NOTES high cholesterol, denies poor circulation, denies heart failure, other cardiac issues, denies claudication, denies cold feet, denies peripheral arterial stent. Respiratory: The patient denies tuberculosis, denies pneumonia, denies frequent cough, denies pulmonary embolism, denies shortness of breath, and denies coughing up blood. Gastrointestinal: The patient denies difficulty swallowing, denies acid reflux, denies ulcers, denies vomiting, denies jaundice/hepatitis, denies gallbladder problems, denies black or tarry stools, denies hemorrhoids, denies bleeding from rectum, denies diverticulitis, denies constipation, denies diarrhea, denies loss of stool control, and denies hernias. Kidney/Bladder: The patient denies kidney stones, denies urine infections, and denies bloody urine. Skin: The patient denies a history of skin cancer, denies bleeding/changing moles, and denies a history of skin rash. Neurologic: The patient denies a history of epilepsy/convulsions, denies headaches, denies head/spinal injuries, and denies stroke/TIA. Psychiatric: The patient denies psychiatric medications, denies depression, and denies voices, denies substance abuse. Endocrine: The patient denies thyroid disorders, NOTES diabetes, and denies hormonal problems. Hematologic: The patient denies a history of bruising, denies bleeding, and denies anemia, denies blood clots. Infections: The patient denies a history of measles and mumps, denies rheumatic fever, and denies sexually transmitted diseases. Musculoskeletal: The patient denies back pain/injury, denies back problems, denies sciatica, denies knee/foot trouble, denies arthritis, or denies gout. When was patient's last Mammogram screening? 03/2023 Last Colonoscopy: 10/2023 Tameka Paredes RN PHYSICAL EXAMINATION: General: The patient is 58 year old female, well nourished, well hydrated in no acute distress. The patient is oriented to time, place, and person. VITALS: Blood pressure 128/60, pulse 74, temperature 36.6 C (97.8 F), height 159.4 cm (5' 2.75), weight 64.2 kg (141 lb 9.6 oz), SpO2 97%. Body mass index is 25.28 kg/m . Head: Normal cephalic, atraumatic Eyes: pupils are equally round, sclera are clear/anicteric Neck is supple with no tracheal deviation, no masses noted Cardiac: normal heart sounds, regular Respiratory: Normal respiratory excursion and pattern. Abdominal exam: benign Extremities: no clubbing, cyanosis or edema. Neuro: non focal Psych: normal mood Assessment IMPRESSION: multinodular goiter PLAN: I have discussed the above with the patient. I have explained that there are no indications for biopsy based on US results. I reassured patient that at this point in time, there is no clinical evidence of thyroid cancer Also, routine surveillance ultrasounds are required, such testing would be based upon symptoms/signs The patient acknowledges the above. I have answered all questions to the patient s satisfaction and the patient has no further questions. I have confirmed and edited as necessary, the PFSH and ROS obtained by others. Consultation requested by Dr. Carol Flores for an opinion regarding patient's multinodular goiter. My final recommendations will be communicated back to the requesting physician by way of shared Medical record or letter to requesting physician via US mail. . Diagnoses: (E04.2) Multinodular goiter (primary encounter diagnosis) Medical Decision Making: Problems: Low: Stable chronic illness Medical Decision Making Level: 2 - Straightforward Deepika Cabrera MD documented in this encounter [facility] 10-30-2023 Nurse Note Blood sugar checked with her own Dexcom 36, result 93. Is eating randal crackers, water and black coffee. at bedside now as well. Patient arrived laying on left side. Patient does not appear to be in any pain at this time and denies pain when asked. Abdomen appears to be nondistended and soft to palpation. Patient encouraged to belch and pass gas as needed. documented in this encounter [facility] 10-30-2023 History and physical note UPDATED PROCEDURAL SEDATION HISTORY AND PHYSICAL EXAMINATION SERVICE DATE: 10/30/2023 SERVICE TIME: 11:01 PHYSICAL EXAM MUST BE COMPLETED ON ADMISSION PROCEDURE: colonoscopy, possible biopsies Procedure Indications: history of colon polyps The History and Physical (completed in the past 30 days) has been reviewed and the patient has been examined. The contents accurately reflect the patient's condition with the following additions or revisions since the H&P was completed. ASA Class: ASA Class:: Patient with mild systemic disease Examination indicates no changes. AIRWAY: Airway Visualization of Uvula: Yes Mouth opening greater than 2 fingerbreadths: Yes Neck Full Range of Motion: Yes LUNGS: Lungs clear to auscultation CARDIAC: Regular rhythm,Regular rate Provisional Diagnosis/Treatment Plan: colonoscopy, possible biopsies SEDATION GOAL: Moderate This H&P can be found in the Electronic Medical Record . SIGNATURE: Deepika Cabrera MD PATIENT NAME: Yunier Funez DATE: October 30, 2023 TIME: 11:01 AM Source Note - Deepika Cabrera MD - 10/30/2023 11:15 AM EST Yunier Funez 1965 REFERRING PHYSICIAN: Dr. Carol Flores CHIEF COMPLAINT: Consult (Colonoscopy consultation. ) HPI: The patient is a 57 year old female referred for endoscopy. She had a colonoscopy in about 10 years ago for which colon polyp was found. She notes no family history of colon cancer. The patient denies blood in stools, denies abdominal pain, and denies changes in bowel habits. Her last colonoscopy was in 2019, no colon polyps found. I told her that if this colonoscopy reveals no colon polyps; then she will not require another colonoscopy for 10 years. PAST MEDICAL HISTORY PAST MEDICAL HISTORY Diagnosis Date Abnormal mammogram of both breasts Diabetes (HCC) History of adenomatous polyp of colon 2019 repeat 5 years Hypercholesterolemia Hypertension Nickel allergy Osteoarthritis of right wrist Seasonal allergies Thyroid nodule Type 2 diabetes mellitus (HCC) Vitamin D deficiency PAST SURGICAL HISTORY PAST SURGICAL HISTORY Procedure Laterality Date APPENDECTOMY HX 1977 COLONOSCOPY 2019 adenomatous polyp, repeat 5 years CURRENT MEDICATIONS Current Outpatient Medications Medication Sig Insulin [place], Disposable, (BD ULTRA-FINE LAKIA PEN NEEDLE) 32 gauge x 5/32 1 Each once daily. magnesium oxide 400 mg magnesium tab Take 1 tablet by mouth daily with lunch. pioglitazone (ACTOS) 15 mg tablet Take 15 mg by mouth daily at bedtime. cholecalciferol (VITAMIN D-3) 50 mcg (2,000 unit) tablet Take 2,000 Units by mouth once daily. diclofenac (VOLTAREN) 1 % topical gel Apply 2 g to affected area four times daily. dapagliflozin propanediol (FARXIGA) 10 mg tablet Take 10 mg by mouth daily with breakfast. fexofenadine (SHAY ALLERGY) 180 mg tablet Take 180 mg by mouth once daily. rosuvastatin (CRESTOR) 5 mg tablet Take 20 mg by mouth once daily. LIRAGLUTIDE (VICTOZA 3-TIMOTEO SUBCUTANEOUS) Inject 1.8 mL subcutaneously daily at bedtime. losartan (COZAAR) 25 mg tablet Take 25 mg by mouth once daily. acarbose (PRECOSE) 50 mg tablet Take 25 mg by mouth three times daily with meals. metFORMIN (GLUCOPHAGE) 500 mg tablet Take 500 mg by mouth twice daily with meals. NATEGLINIDE ORAL Take 50 mg by mouth three times daily. (Patient not taking: Reported on 10/24/2023) No current facility-administered medications for this visit. ALLERGIES: Nickel PERSONAL HISTORY: SOCIAL HISTORY Social History Tobacco Use Smoking status: Former Types: Cigarettes Start date: 09/24/1979 Quit date: 09/24/1985 Years since quittin.1 Smokeless tobacco: Never Vaping Use Vaping Use: Never used Substance Use Topics Alcohol use: Yes Comment: socially Drug use: No FAMILY HISTORY FAMILY HISTORY Problem Relation Age of Onset Asthma Mother Pneumonia Mother Bronchitis Mother other (other) Father 1/3 if small intestine removed when younger, ? IBD Cancer Father history of blood cancer No Known Problems Brother Asthma Son Hypertension Son Diabetes Maternal Uncle The review of systems data was entered by the nurse and reviewed by me Nursing Notes: Tameka Paredes RN 10/24/2023 3:27 PM Signed REVIEW OF SYSTEMS: General: The patient denies fatigue, denies weight loss, denies weight gain, denies feeling hot, and denies feelings of cold. Eyes: The patient denies glaucoma, denies eye injury/surgery, wears glasses or contacts. Ear/Nose/Throat: The patient NOTES allergies, NOTES hayfever, denies ear infections, and NOTES bloody noses. Cardiovascular: The patient denies chest pain, denies heart disease, NOTES high blood pressure,denies cardiac stent, denies prior heart attack, denies irregular heart beat, NOTES high cholesterol, denies poor circulation, denies heart failure, other cardiac issues, denies claudication, denies cold feet, denies peripheral arterial stent. Respiratory: The patient denies tuberculosis, denies pneumonia, denies frequent cough, denies pulmonary embolism, denies shortness of breath, and denies coughing up blood. Gastrointestinal: The patient denies difficulty swallowing, denies acid reflux, denies ulcers, denies vomiting, denies jaundice/hepatitis, denies gallbladder problems, denies black or tarry stools, denies hemorrhoids, denies bleeding from rectum, denies diverticulitis, denies constipation, denies diarrhea, denies loss of stool control, and denies hernias. Kidney/Bladder: The patient denies kidney stones, denies urine infections, and denies bloody urine. Skin: The patient denies a history of skin cancer, denies bleeding/changing moles, and denies a history of skin rash. Neurologic: The patient denies a history of epilepsy/convulsions, denies headaches, denies head/spinal injuries, and denies stroke/TIA. Psychiatric: The patient denies psychiatric medications, denies depression, and denies voices, denies substance abuse. Endocrine: The patient denies thyroid disorders, NOTES diabetes, and denies hormonal problems. Hematologic: The patient denies a history of bruising, denies bleeding, and denies anemia, denies blood clots. Infections: The patient denies a history of measles and mumps, denies rheumatic fever, and denies sexually transmitted diseases. Musculoskeletal: The patient denies back pain/injury, denies back problems, denies sciatica, denies knee/foot trouble, NOTES arthritis, or denies gout. When was patient's last Mammogram screening? 03/2023 Last Colonoscopy: 2018 Tameka Paredes RN PHYSICAL EXAMINATION: General: The patient is 57 year old female, well nourished, well hydrated in no acute distress. The patient is oriented to time, place, and person. VITALS: Blood pressure 122/78, pulse 82, temperature 36.4 C (97.5 F), height 157.5 cm (5' 2), weight 63.1 kg (139 lb 3.2 oz), SpO2 98%. Body mass index is 25.46 kg/m . Head - Normocephalic. EOM intact with sclera clear. Mouth with mucus membranes moist. Neck - supple with no jugular venous distention noted. Trachea is midline. Lungs - normal respiratory motion, no adventitial sounds noted. Heart - normal heart sounds. Regular rate. Abdomen - soft and benign. Extremities - no pitting edema noted. Skin - Normal skin integrity. Neurological - non focal Psych - calm and appropriate Impression: surveillance colonoscopy for history of colon polyps, Discussion/Plan/Recommendations : I have discussed the above with the patient. I have offered colonoscopy , possible biopsies I have explained the procedure to the patient. I have counseled the patient as to the risks of the procedure, including but not limited to: infection, bleeding, injury to any intrabdominal organs such as liver/spleen, perforation of the GI tract, inability to complete the procedure, complications of anesthesia, etc. - the patient understands. The patient wishes to proceed. I have answered all questions to the patient s satisfaction and the patient has no further questions. Yunier Funez 1965 REFERRING PHYSICIAN: Dr. Carol Flores CHIEF COMPLAINT: Consult (Colonoscopy consultation. ) HPI: The patient is a 57 year old female referred for endoscopy. She had a colonoscopy in about 10 years ago for which colon polyp was found. She notes no family history of colon cancer. The patient denies blood in stools, denies abdominal pain, and denies changes in bowel habits. Her last colonoscopy was in 2019, no colon polyps found. I told her that if this colonoscopy reveals no colon polyps; then she will not require another colonoscopy for 10 years. PAST MEDICAL HISTORY PAST MEDICAL HISTORY Diagnosis Date Abnormal mammogram of both breasts Diabetes (HCC) History of adenomatous polyp of colon 2019 repeat 5 years Hypercholesterolemia Hypertension Nickel allergy Osteoarthritis of right wrist Seasonal allergies Thyroid nodule Type 2 diabetes mellitus (HCC) Vitamin D deficiency PAST SURGICAL HISTORY PAST SURGICAL HISTORY Procedure Laterality Date APPENDECTOMY HX 1977 COLONOSCOPY 2019 adenomatous polyp, repeat 5 years CURRENT MEDICATIONS Current Outpatient Medications Medication Sig Insulin [place], Disposable, (BD ULTRA-FINE LAKIA PEN NEEDLE) 32 gauge x 5/32 1 Each once daily. magnesium oxide 400 mg magnesium tab Take 1 tablet by mouth daily with lunch. pioglitazone (ACTOS) 15 mg tablet Take 15 mg by mouth daily at bedtime. cholecalciferol (VITAMIN D-3) 50 mcg (2,000 unit) tablet Take 2,000 Units by mouth once daily. diclofenac (VOLTAREN) 1 % topical gel Apply 2 g to affected area four times daily. dapagliflozin propanediol (FARXIGA) 10 mg tablet Take 10 mg by mouth daily with breakfast. fexofenadine (SHAY ALLERGY) 180 mg tablet Take 180 mg by mouth once daily. rosuvastatin (CRESTOR) 5 mg tablet Take 20 mg by mouth once daily. LIRAGLUTIDE (VICTOZA 3-TIMOTEO SUBCUTANEOUS) Inject 1.8 mL subcutaneously daily at bedtime. losartan (COZAAR) 25 mg tablet Take 25 mg by mouth once daily. acarbose (PRECOSE) 50 mg tablet Take 25 mg by mouth three times daily with meals. metFORMIN (GLUCOPHAGE) 500 mg tablet Take 500 mg by mouth twice daily with meals. NATEGLINIDE ORAL Take 50 mg by mouth three times daily. (Patient not taking: Reported on 10/24/2023) No current facility-administered medications for this visit. ALLERGIES: Nickel PERSONAL HISTORY: SOCIAL HISTORY Social History Tobacco Use Smoking status: Former Types: Cigarettes Start date: 09/24/1979 Quit date: 09/24/1985 Years since quittin.1 Smokeless tobacco: Never Vaping Use Vaping Use: Never used Substance Use Topics Alcohol use: Yes Comment: socially Drug use: No FAMILY HISTORY FAMILY HISTORY Problem Relation Age of Onset Asthma Mother Pneumonia Mother Bronchitis Mother other (other) Father 1/3 if small intestine removed when younger, ? IBD Cancer Father history of blood cancer No Known Problems Brother Asthma Son Hypertension Son Diabetes Maternal Uncle The review of systems data was entered by the nurse and reviewed by ct Nursing Notes: Tameka Paredes RN 10/24/2023 3:27 PM Signed REVIEW OF SYSTEMS: General: The patient denies fatigue, denies weight loss, denies weight gain, denies feeling hot, and denies feelings of cold. Eyes: The patient denies glaucoma, denies eye injury/surgery, wears glasses or contacts. Ear/Nose/Throat: The patient NOTES allergies, NOTES hayfever, denies ear infections, and NOTES bloody noses. Cardiovascular: The patient denies chest pain, denies heart disease, NOTES high blood pressure,denies cardiac stent, denies prior heart attack, denies irregular heart beat, NOTES high cholesterol, denies poor circulation, denies heart failure, other cardiac issues, denies claudication, denies cold feet, denies peripheral arterial stent. Respiratory: The patient denies tuberculosis, denies pneumonia, denies frequent cough, denies pulmonary embolism, denies shortness of breath, and denies coughing up blood. Gastrointestinal: The patient denies difficulty swallowing, denies acid reflux, denies ulcers, denies vomiting, denies jaundice/hepatitis, denies gallbladder problems, denies black or tarry stools, denies hemorrhoids, denies bleeding from rectum, denies diverticulitis, denies constipation, denies diarrhea, denies loss of stool control, and denies hernias. Kidney/Bladder: The patient denies kidney stones, denies urine infections, and denies bloody urine. Skin: The patient denies a history of skin cancer, denies bleeding/changing moles, and denies a history of skin rash. Neurologic: The patient denies a history of epilepsy/convulsions, denies headaches, denies head/spinal injuries, and denies stroke/TIA. Psychiatric: The patient denies psychiatric medications, denies depression, and denies voices, denies substance abuse. Endocrine: The patient denies thyroid disorders, NOTES diabetes, and denies hormonal problems. Hematologic: The patient denies a history of bruising, denies bleeding, and denies anemia, denies blood clots. Infections: The patient denies a history of measles and mumps, denies rheumatic fever, and denies sexually transmitted diseases. Musculoskeletal: The patient denies back pain/injury, denies back problems, denies sciatica, denies knee/foot trouble, NOTES arthritis, or denies gout. When was patient's last Mammogram screening? 03/2023 Last Colonoscopy: 2018 Tameka Paredes RN PHYSICAL EXAMINATION: General: The patient is 57 year old female, well nourished, well hydrated in no acute distress. The patient is oriented to time, place, and person. VITALS: Blood pressure 122/78, pulse 82, temperature 36.4 C (97.5 F), height 157.5 cm (5' 2), weight 63.1 kg (139 lb 3.2 oz), SpO2 98%. Body mass index is 25.46 kg/m . Head - Normocephalic. EOM intact with sclera clear. Mouth with mucus membranes moist. Neck - supple with no jugular venous distention noted. Trachea is midline. Lungs - normal respiratory motion, no adventitial sounds noted. Heart - normal heart sounds. Regular rate. Abdomen - soft and benign. Extremities - no pitting edema noted. Skin - Normal skin integrity. Neurological - non focal Psych - calm and appropriate Impression: surveillance colonoscopy for history of colon polyps, Discussion/Plan/Recommendations : I have discussed the above with the patient. I have offered colonoscopy , possible biopsies I have explained the procedure to the patient. I have counseled the patient as to the risks of the procedure, including but not limited to: infection, bleeding, injury to any intrabdominal organs such as liver/spleen, perforation of the GI tract, inability to complete the procedure, complications of anesthesia, etc. - the patient understands. The patient wishes to proceed. I have answered all questions to the patient s satisfaction and the patient has no further questions. documented in this encounter [facility] 10-25-2023 Telephone encounter Note 10/29/2023 colon asc [facility] 10-25-2023 Miscellaneous Notes 10/29/2023 colon asc documented in this encounter [facility] 10-24-2023 Instructions Deepika Cabrera MD - 10/24/2023 3:33 PM EST Images from the original note were not included. Bowel Preparation Instructions for: Golytely, Nulytely, Trilyte or Colyte (polyethylene glycol 3350 and electrolytes) IF YOU DO NOT FOLLOW THESE DIRECTIONS, YOUR COLONOSCOPY WILL BE CANCELLED. [place] Instructions: Your bowel must be empty so that your doctor can clearly view your colon. Follow all of the instructions in this handout EXACTLY as they are written. Do NOT eat any solid food the ENTIRE day before your colonoscopy. Drink only clear liquids. Buy your bowel preparation at least 5 days before your colonoscopy. TRANSPORTATION on the Day of Your Exam A responsible person MUST be present with you at Check In prior to your colonoscopy and REMAIN in the endoscopy area until you are discharged. You are NOT ALLOWED to drive, take a taxi or bus, or leave the Endoscopy Center ALONE. If you do not have a responsible delivery driver assistant (family member or friend) with you to take you home, your exam cannot be done with sedation and will be cancelled. Please bring a list of all of your current medications, including any Over-the Counter medications with you. Medications If you take insulin, diabetic medications or blood thinners such as Coumadin (warfarin), Plavix (clopidogrel), Ticlid (ticlopidine hydrochloride), Agrylin (anagrelide), Xarelto (Rivaroxaban), Pradaxa (Dabigatran), Eliquis (Apixaban), and Effient (Prasugrel). You MUST call the doctors who orders those medicines for instructions on altering the dosage before your colonoscopy. All other medications should be taken the day of the exam with a sip of water including ASPIRIN. Five (5) Days Before Your Colonoscopy Do NOT take medicines that stop diarrhea - such as Imodium, Kaopectate, or Pepto Bismol. Do NOT take fiber supplements - such as Metamucil, Citrucel, or Perdiem. Do NOT take products that contain iron - such as multi-vitamins (the label lists what is in the products). Do NOT take Vitamin E. Buy the prescription bowel preparation solution at your local pharmacy or drugstore pharmacy. 08/2019 Bowel Preparation Instructions for: Golytely, Nulytely, Trilyte or Colyte (polyethylene glycol 3350 and electrolytes) Three (3) Days Before Your Colonoscopy Do NOT eat high-fiber foods - such as popcorn, beans, seeds (flax, sunflower, quinoa), multigrain bread, nuts, salad/vegetables, or fresh and dried fruit. One (1) Day Before Your Colonoscopy Only drink clear liquids the ENTIRE DAY before your colonoscopy. Do NOT eat any solid foods. Drink at least 8 ounces of clear liquids every hour after waking up. The clear liquids you can drink include: Clear Liquid (NO RED LIQUIDS) DO NOT DRINK Gatorade, Pedialyte or Powerade Clear broth or bouillon Coffee or tea (no milk or non-dairy creamer) Carbonated and non-carbonated soft drinks Dennis-Aid or other fruit flavored drinks Strained fruit juices (no pulp) Jell-O, popsicles, hard candy Water Alcohol Milk or non-dairy creamers Noodles or vegetables in soup Juice with pulp Liquid you cannot see through Do not use tobacco/vaping products The bowel preparation solution will be consumed in two parts. Mix the solution the evening before your colonoscopy and refrigerate before drinking. You may add the flavor pack that came with the bowel preparation. Do NOT add ice, sugar or any other flavorings to the solution. Part 1 At 6:00 PM - Evening before your colonoscopy Drink an 8-oz glass of bowel preparation every 10 minutes for a total of 8 glasses. You may continue to drink clear liquids until midnight. Part 2 On the day of your colonoscopy you may drink clear liquids up to (three) 3 hours before your procedure. 4 1/2 hours before your colonoscopy Drink an 8-oz glass of bowel preparation every 10 minutes for a total of 8 glasses. Fifteen (15) minutes later, drink an 8-oz glass of clear liquids every 15 minutes for a total of 2 glasses. You may continue to drink clear liquids up to (three) 3 hours before your exam. 2 08/2019 documented in this encounter [facility] 10-24-2023 Note HNO ID: [id number] Author: DEEPIKA CABRERA MD Service: ? Author Type: Physician Type: Progress Notes Filed: 10/27/2023 13:18 Note Text: HISTORY AND PHYSICAL Yunier Funez 1965 REFERRING PHYSICIAN: Dr. Carol Flores CHIEF COMPLAINT: Consult (Colonoscopy consultation. ) HPI: The patient is a 57 year old female referred for endoscopy. She had a colonoscopy in about 10 years ago for which colon polyp was found. She notes no family history of colon cancer. The patient denies blood in stools, denies abdominal pain, and denies changes in bowel habits. Her last colonoscopy was in 2019, no colon polyps found. I told her that if this colonoscopy reveals no colon polyps; then she will not require another colonoscopy for 10 years. PAST MEDICAL HISTORY Diagnosis Date Abnormal mammogram of both breasts Diabetes (HCC) History of adenomatous polyp of colon 2019 repeat 5 years Hypercholesterolemia Hypertension Nickel allergy Osteoarthritis of right wrist Seasonal allergies Thyroid nodule Type 2 diabetes mellitus (HCC) Vitamin D deficiency PAST SURGICAL HISTORY Procedure Laterality Date APPENDECTOMY HX 1977 COLONOSCOPY 2019 adenomatous polyp, repeat 5 years Current Outpatient Medications Medication Sig Insulin [place], Disposable, (BD ULTRA-FINE LAKIA PEN NEEDLE) 32 gauge x 5/32 1 Each once daily. magnesium oxide 400 mg magnesium tab Take 1 tablet by mouth daily with lunch. pioglitazone (ACTOS) 15 mg tablet Take 15 mg by mouth daily at bedtime. cholecalciferol (VITAMIN D-3) 50 mcg (2,000 unit) tablet Take 2,000 Units by mouth once daily. diclofenac (VOLTAREN) 1 % topical gel Apply 2 g to affected area four times daily. dapagliflozin propanediol (FARXIGA) 10 mg tablet Take 10 mg by mouth daily with breakfast. fexofenadine (SHAY ALLERGY) 180 mg tablet Take 180 mg by mouth once daily. rosuvastatin (CRESTOR) 5 mg tablet Take 20 mg by mouth once daily. LIRAGLUTIDE (VICTOZA 3-TIMOTEO SUBCUTANEOUS) Inject 1.8 mL subcutaneously daily at bedtime. losartan (COZAAR) 25 mg tablet Take 25 mg by mouth once daily. acarbose (PRECOSE) 50 mg tablet Take 25 mg by mouth three times daily with meals. metFORMIN (GLUCOPHAGE) 500 mg tablet Take 500 mg by mouth twice daily with meals. NATEGLINIDE ORAL Take 50 mg by mouth three times daily. (Patient not taking: Reported on 10/24/2023) No current facility-administered medications for this visit. ALLERGIES: Nickel PERSONAL HISTORY: Social History Tobacco Use Smoking status: Former Types: Cigarettes Start date: 09/24/1979 Quit date: 09/24/1985 Years since quittin.1 Smokeless tobacco: Never Vaping Use Vaping Use: Never used Substance Use Topics Alcohol use: Yes Comment: socially Drug use: No FAMILY HISTORY Problem Relation Age of Onset Asthma Mother Pneumonia Mother Bronchitis Mother other (other) Father 1/3 if small intestine removed when younger, ? IBD Cancer Father history of blood cancer No Known Problems Brother Asthma Son Hypertension Son Diabetes Maternal Uncle The review of systems data was entered by the nurse and reviewed by ct Nursing Notes: Tameka Paredes RN 10/24/2023 3:27 PM Signed REVIEW OF SYSTEMS: General: The patient denies fatigue, denies weight loss, denies weight gain, denies feeling hot, and denies feelings of cold. Eyes: The patient denies glaucoma, denies eye injury/surgery, wears glasses or contacts. Ear/Nose/Throat: The patient NOTES allergies, NOTES hayfever, denies ear infections, and NOTES bloody noses. Cardiovascular: The patient denies chest pain, denies heart disease, NOTES high blood pressure,denies cardiac stent, denies prior heart attack, denies irregular heart beat, NOTES high cholesterol, denies poor circulation, denies heart failure, other cardiac issues, denies claudication, denies cold feet, denies peripheral arterial stent. Respiratory: The patient denies tuberculosis, denies pneumonia, denies frequent cough, denies pulmonary embolism, denies shortness of breath, and denies coughing up blood. Gastrointestinal: The patient denies difficulty swallowing, denies acid reflux, denies ulcers, denies vomiting, denies jaundice/hepatitis, denies gallbladder problems, denies black or tarry stools, denies hemorrhoids, denies bleeding from rectum, denies diverticulitis, denies constipation, denies diarrhea, denies loss of stool control, and denies hernias. Kidney/Bladder: The patient denies kidney stones, denies urine infections, and denies bloody urine. Skin: The patient denies a history of skin cancer, denies bleeding/changing moles, and denies a history of skin rash. Neurologic: The patient denies a history of epilepsy/convulsions, denies headaches, denies head/spinal injuries, and denies stroke/TIA. Psychiatric: The patient denies psychiatric medications, denies depression, and denies voices, denies substance abuse. Endocrine (more content not included)... [facility] 10-24-2023 History of Presen t illness Narrative HISTORY AND PHYSICAL Yunier Funez 1965 REFERRING PHYSICIAN: Dr. Carol Flores CHIEF COMPLAINT: Consult (Colonoscopy consultation. ) HPI: The patient is a 57 year old female referred for endoscopy. She had a colonoscopy in about 10 years ago for which colon polyp was found. She notes no family history of colon cancer. The patient denies blood in stools, denies abdominal pain, and denies changes in bowel habits. Her last colonoscopy was in 2019, no colon polyps found. I told her that if this colonoscopy reveals no colon polyps; then she will not require another colonoscopy for 10 years. PAST MEDICAL HISTORY Diagnosis Date Abnormal mammogram of both breasts Diabetes (HCC) History of adenomatous polyp of colon 2019 repeat 5 years Hypercholesterolemia Hypertension Nickel allergy Osteoarthritis of right wrist Seasonal allergies Thyroid nodule Type 2 diabetes mellitus (HCC) Vitamin D deficiency PAST SURGICAL HISTORY Procedure Laterality Date APPENDECTOMY HX 1977 COLONOSCOPY 2019 adenomatous polyp, repeat 5 years Current Outpatient Medications Medication Sig Insulin [place], Disposable, (BD ULTRA-FINE LAKIA PEN NEEDLE) 32 gauge x 5/32 1 Each once daily. magnesium oxide 400 mg magnesium tab Take 1 tablet by mouth daily with lunch. pioglitazone (ACTOS) 15 mg tablet Take 15 mg by mouth daily at bedtime. cholecalciferol (VITAMIN D-3) 50 mcg (2,000 unit) tablet Take 2,000 Units by mouth once daily. diclofenac (VOLTAREN) 1 % topical gel Apply 2 g to affected area four times daily. dapagliflozin propanediol (FARXIGA) 10 mg tablet Take 10 mg by mouth daily with breakfast. fexofenadine (SHAY ALLERGY) 180 mg tablet Take 180 mg by mouth once daily. rosuvastatin (CRESTOR) 5 mg tablet Take 20 mg by mouth once daily. LIRAGLUTIDE (VICTOZA 3-TIMOTEO SUBCUTANEOUS) Inject 1.8 mL subcutaneously daily at bedtime. losartan (COZAAR) 25 mg tablet Take 25 mg by mouth once daily. acarbose (PRECOSE) 50 mg tablet Take 25 mg by mouth three times daily with meals. metFORMIN (GLUCOPHAGE) 500 mg tablet Take 500 mg by mouth twice daily with meals. NATEGLINIDE ORAL Take 50 mg by mouth three times daily. (Patient not taking: Reported on 10/24/2023) No current facility-administered medications for this visit. ALLERGIES: Nickel PERSONAL HISTORY: Social History Tobacco Use Smoking status: Former Types: Cigarettes Start date: 09/24/1979 Quit date: 09/24/1985 Years since quittin.1 Smokeless tobacco: Never Vaping Use Vaping Use: Never used Substance Use Topics Alcohol use: Yes Comment: socially Drug use: No FAMILY HISTORY Problem Relation Age of Onset Asthma Mother Pneumonia Mother Bronchitis Mother other (other) Father 1/3 if small intestine removed when younger, ? IBD Cancer Father history of blood cancer No Known Problems Brother Asthma Son Hypertension Son Diabetes Maternal Uncle The review of systems data was entered by the nurse and reviewed by ct Nursing Notes: Tameka Paredes RN 10/24/2023 3:27 PM Signed REVIEW OF SYSTEMS: General: The patient denies fatigue, denies weight loss, denies weight gain, denies feeling hot, and denies feelings of cold. Eyes: The patient denies glaucoma, denies eye injury/surgery, wears glasses or contacts. Ear/Nose/Throat: The patient NOTES allergies, NOTES hayfever, denies ear infections, and NOTES bloody noses. Cardiovascular: The patient denies chest pain, denies heart disease, NOTES high blood pressure,denies cardiac stent, denies prior heart attack, denies irregular heart beat, NOTES high cholesterol, denies poor circulation, denies heart failure, other cardiac issues, denies claudication, denies cold feet, denies peripheral arterial stent. Respiratory: The patient denies tuberculosis, denies pneumonia, denies frequent cough, denies pulmonary embolism, denies shortness of breath, and denies coughing up blood. Gastrointestinal: The patient denies difficulty swallowing, denies acid reflux, denies ulcers, denies vomiting, denies jaundice/hepatitis, denies gallbladder problems, denies black or tarry stools, denies hemorrhoids, denies bleeding from rectum, denies diverticulitis, denies constipation, denies diarrhea, denies loss of stool control, and denies hernias. Kidney/Bladder: The patient denies kidney stones, denies urine infections, and denies bloody urine. Skin: The patient denies a history of skin cancer, denies bleeding/changing moles, and denies a history of skin rash. Neurologic: The patient denies a history of epilepsy/convulsions, denies headaches, denies head/spinal injuries, and denies stroke/TIA. Psychiatric: The patient denies psychiatric medications, denies depression, and denies voices, denies substance abuse. Endocrine: The patient denies thyroid disorders, NOTES diabetes, and denies hormonal problems. Hematologic: The patient denies a history of bruising, denies bleeding, and denies anemia, denies blood clots. Infections: The patient denies a history of measles and mumps, denies rheumatic fever, and denies sexually transmitted diseases. Musculoskeletal: The patient denies back pain/injury, denies back problems, denies sciatica, denies knee/foot trouble, NOTES arthritis, or denies gout. When was patient's last Mammogram screening? 03/2023 Last Colonoscopy: 2019 Tameka Paredes RN PHYSICAL EXAMINATION: General: The patient is 57 year old female, well nourished, well hydrated in no acute distress. The patient is oriented to time, place, and person. VITALS: Blood pressure 122/78, pulse 82, temperature 36.4 C (97.5 F), height 157.5 cm (5' 2), weight 63.1 kg (139 lb 3.2 oz), SpO2 98%. Body mass index is 25.46 kg/m . Head - Normocephalic. EOM intact with sclera clear. Mouth with mucus membranes moist. Neck - supple with no jugular venous distention noted. Trachea is midline. Lungs - normal respiratory motion, no adventitial sounds noted. Heart - normal heart sounds. Regular rate. Abdomen - soft and benign. Extremities - no pitting edema noted. Skin - Normal skin integrity. Neurological - non focal Psych - calm and appropriate Impression: surveillance colonoscopy for history of colon polyps, Discussion/Plan/Recommendations : I have discussed the above with the patient. I have offered colonoscopy , possible biopsies I have explained the procedure to the patient. I have counseled the patient as to the risks of the procedure, including but not limited to: infection, bleeding, injury to any intrabdominal organs such as liver/spleen, perforation of the GI tract, inability to complete the procedure, complications of anesthesia, etc. - the patient understands. The patient wishes to proceed. I have answered all questions to the patient s satisfaction and the patient has no further questions. My clinic staff has educated the patient as to the colon cleansing regimen and I have prescribed Golytely for the colon cleansing solution. The patient will be scheduled for the procedure at [facility]. I have confirmed and edited as necessary, the PFSH and ROS obtained by others. Consultation requested by Dr. Carol Flores for an opinion regarding patient's history of colon polyp. My final recommendations will be communicated back to the requesting physician by way of shared Medical record or letter to requesting physician via US mail. Assessment Diagnoses: (Z86.010) History of colonic polyps (primary encounter diagnosis) Medical Decision Making: Risk: Low: Low risk from testing/treatment Medical Decision Making Level: 2 - Straightforward Deepika Cabrera MD documented in this encounter [facility] 10-24-2023 Nurse Note REVIEW OF SYSTEMS: General: The patient denies fatigue, denies weight loss, denies weight gain, denies feeling hot, and denies feelings of cold. Eyes: The patient denies glaucoma, denies eye injury/surgery, wears glasses or contacts. Ear/Nose/Throat: The patient NOTES allergies, NOTES hayfever, denies ear infections, and NOTES bloody noses. Cardiovascular: The patient denies chest pain, denies heart disease, NOTES high blood pressure,denies cardiac stent, denies prior heart attack, denies irregular heart beat, NOTES high cholesterol, denies poor circulation, denies heart failure, other cardiac issues, denies claudication, denies cold feet, denies peripheral arterial stent. Respiratory: The patient denies tuberculosis, denies pneumonia, denies frequent cough, denies pulmonary embolism, denies shortness of breath, and denies coughing up blood. Gastrointestinal: The patient denies difficulty swallowing, denies acid reflux, denies ulcers, denies vomiting, denies jaundice/hepatitis, denies gallbladder problems, denies black or tarry stools, denies hemorrhoids, denies bleeding from rectum, denies diverticulitis, denies constipation, denies diarrhea, denies loss of stool control, and denies hernias. Kidney/Bladder: The patient denies kidney stones, denies urine infections, and denies bloody urine. Skin: The patient denies a history of skin cancer, denies bleeding/changing moles, and denies a history of skin rash. Neurologic: The patient denies a history of epilepsy/convulsions, denies headaches, denies head/spinal injuries, and denies stroke/TIA. Psychiatric: The patient denies psychiatric medications, denies depression, and denies voices, denies substance abuse. Endocrine: The patient denies thyroid disorders, NOTES diabetes, and denies hormonal problems. Hematologic: The patient denies a history of bruising, denies bleeding, and denies anemia, denies blood clots. Infections: The patient denies a history of measles and mumps, denies rheumatic fever, and denies sexually transmitted diseases. Musculoskeletal: The patient denies back pain/injury, denies back problems, denies sciatica, denies knee/foot trouble, NOTES arthritis, or denies gout. When was patient's last Mammogram screening? 03/2023 Last Colonoscopy: 2018 Tameka Paredes RN documented in this encounter [facility] Evaluation note No assessment inform ation available [facility] Work Phone: Evaluation note Diagnosis History of colonic polyps- Primary Personal history of colonic polyps [facility] Diagnosis History of colon polyps- Primary Personal history of colonic polyps History of colonic polyps Personal history of colonic polyps [facility] Diagnosis Multinodular goiter- Primary Nontoxic multinodular goiter documented in this encounter [facility] for referral (narrative)* Outpatient Procedure (Routine) - Authorized Specialty Diagnoses / Procedures Referred By Brii olsen Referred To Contact [facility] Diagnoses History of colonic polyps Procedures COLONOSCOPY SCREENING COLONOSCOPY FLX DX W/COLLJ SPEC WHEN Deepika Gallagher MD [address] [place] [address] [facility] [place] [address] [place] [address] Referral ID Status Reason Start Date Expiration Date Visits Requested Visits Authorized [id number] Authorized Auto-Generat ed Referral 10/24/2023 10/24/2024 1 1 [facility] for referral (narrative)* Outpatient Procedure (Routine) - Closed Specialty Diagnoses / Procedures Referred By Brii olsen Referred To Contact [facility] Diagnoses History of colonic polyps Procedures COLONOSCOPY SCREENING COLONOSCOPY FLX DX W/COLLJ SPEC WHEN Deepika Gallagher MD [address] [place] [address] [facility] [address] [address] Referral ID Status Reason Start Date Expiration Date V isits Requested Visits Authorized [id number] Closed Auto-Generate d Referral 10/24/2023 10/24/2024 1 1 [facility] for referral (narrative)No reason for referral information availableWRivers[facility] Work Phone: Reason for visit Narrative* Outpatient Procedure (Routine) - Closed Specialty Diagnoses / Procedures Referred By Contac t Referred To Contact [facility] Diagnoses History of colonic polyps Procedures COLONOSCOPY SCREENING COLONOSCOPY FLX DX W/COLLJ SPEC WHEN [facility] Deepika Cabrera MD [address] [place] [address] [facility] [place] [address] [place] [address] Referral ID Status Reason Start Date Expiration Date V isits Requested Visits Authorized [id number] Closed Auto-Generate d Referral 10/24/2023 10/24/2024 1 1 [facility] Summary Purpose Family History No Family History Records FoundNo Family History Records FoundNo Family History Records FoundNo Family History Records FoundNo Family History Records Found Advance Directives No Advanced Directives Records Found Advance Directive Response Recorded Date/ Time Living Will No March 04, 2015 3:40pm Power of Pewter [employer]ator No March 04 5 3:40pm Advance Directive Response Recorded Date/ Time Living Will No March 04, 2015 2:40pm Power of Pewter Fabricator No March 04 5 2:40pm Chief Complaint and Reason for Visit Chief Complaint SCREENING Chief Complaint R CTS/RX HERE Chief Complaint EORDER Chief Complaint EORDER PRIOR EXOPHYTIC CYST Chief Complaint PRIOR IRREGULARITY/N ODULE/CYST Additional Source Comments INFORMATION SOURCE (unrecogn ized section and content) DATE CREATED AUTHOR 03/19/2018 [facility] DATE CREATED AUTHOR AUTHOR'S ORGANIZ ATION 03/19/2018 [facility] DATE CREATED AUTHOR AUTHOR'S ORGANIZ ATION 03/09/2020 [facility] ([place]) DATE CREATED AUTHOR AUTHOR'S ORGANIZ ATION 07/31/2024 [facility] DATE CREATED AUTHOR AUTHOR'S ORGANIZ ATION 04/29/2025 [facility] Goals (unrecognized section and content) Goals may be documented in a n alternate sectionGoals may be documented in an alternate sectionGoals may be documented in an alternate sectionGoals may be documented in an alternate sectionGoals may be documented in an alternate sectionGoals may be documented in an alternate sectionGoals may be documented in an alternate sectionGoals may be documented in an alternate sectionGoals may be documented in an alternate sectionGoals may be documented in an alternate section Care Teams (unrecognized sec tion and content) Team Status: Active Member Role Status Dates Dr. Carol Flores MD Family Provider Active Dr. Carol Flores MD Primary Care Provider Active Team Status: Inactive Member Role Status Dates Dr. Carol Flores MD Primary Care Provide r, Attending Provider, Referring Provider Active Team Status: Inactive Member Role Status Dates Dr. 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 Carol Flores MD Family Provider Active Dr. Carol Flores MD Primary Care Provider Active Team Status: Inactive Member Role/Relationship Status Dates Dr. Carol Flores MD Primary Care Provider Active Start: April 07, 2025 End: April 07, 2025 Dr. Carol Flores MD Attending Provider Active St art: April 07, 2025 End: April 07, 2025 Source Comments (unrecognize d section and content) In the event this informatio n is protected by the Federal Confidentiality of Alcohol and Drug Abuse Patient Records regulations: The Federal rules restrict any use of the information to criminally investigate or prosecute any alcohol or drug abuse patient.[facility] the event this information is protected by the Federal Confidentiality of Alcohol and Drug Abuse Patient Records regulations: The Federal rules restrict any use of the information to criminally investigate or prosecute any alcohol or drug abuse patient.[facility] the event this information is protected by the Federal Confidentiality of Alcohol and Drug Abuse Patient Records regulations: The Federal rules restrict any use of the information to criminally investigate or prosecute any alcohol or drug abuse patient.[facility] the event this information is protected by the Federal Confidentiality of Alcohol and Drug Abuse Patient Records regulations: The Federal rules restrict any use of the information to criminally investigate or prosecute any alcohol or drug abuse patient.[facility] Reason for Visit (unrecogniz ed section and content) Reason Comments Consult Colonoscopy consulta tion. Reason Comments Consult Abnormal thyroid ult rasound. Reason Comments 10/29/2023 colon asc Inactive Administered Medications - up to 3 most recent administrations Administered Medications (un recognized section and content) Medication Order MAR Action Action Date Dose Rate Site fentaNYL 50 mcg/mL 25-100 mcg injection (SUBLIMAZE) 25-100 mcg, INTRAVENOUS, DIRECTED, Starting on Sun10/30/23 at 1130, Until 10/30/23 at 1529, DOSING DIRECTED BY PHYSICIAN FOR PROCEDURAL SEDATION ONLY, Intraprocedure Given 10/30/2023 11:05 AM EST 50 mcg lactated ringers iv infusion 75 mL/hr, INTRAVENOUS, CONTINUOUS, Starting on Sun10/30/23 at 1100, Until 10/30/23 at 1133, Preprocedure New Bag/Syringe/Bottle 10/30/2023 10:40 AM EST 75 mL/hr 75 mL/hr midazolam (PF) 1-5 mg injection (VERSED) 1-5 mg, INTRAVENOUS, DIRECTED, Starting on Sun10/30/23 at 1130, Until Sun10/30/23 at 1529, DOSING DIRECTED BY PHYSICIAN FOR PROCEDURAL SEDATION ONLY, Intraprocedure Given 10/30/2023 11:12 AM EST 2 mg Given 10/30/2023 11:05 AM EST 3 mg simethicone 20-40 mg oral liquid (MYLICON) 20-40 mg, OTHER, DIRECTED, Starting on Sun10/30/23 at 1130, Until Sun10/30/23 at 1529, Dosing as directed for intraprocedural use only Shake Well, Intraprocedure Given 10/30/2023 11:30 AM EST 40 mg FOR RECORDS PERTAINING TO PATIENTS WHO ARE [...] BE BASED ON THE PRIMARY CLINICAL RECORDS. [employer] [facility]. provides no warranty or guarantee of the accuracy or completeness of information in this document.
--- OUTSIDE RECORDS SUMMARY | 2025-04-30 07:11 | XMS RPT_ITS | CCD ---
Author Organization [facility] ion Partnership [facility] Care Team Providers Care Vertical Roll Operator Name Role Phone DIONICIO LOYA Unavailable Unavailable [...] Dr. Carol Flores MD Primary Care Provider Dr. Carol Flores MD Attending Provider [phone] Carol Flores Attending Unavailable Carol Flores Primary Care Unavailable Carol Flores Referring Unavailable Carol Flores Attending Unavailable Carol Flores Primary Care Unavailable Carol Flores Attending Unavailable Carol Flores Primary Care Unavailable Carol Flores Referring Unavailable Carol Flores Attending Unavailable Mark Carol Primary Care Unavailable Carol Flores Referring Unavailable Allergies Allergy Classification Reported Allergen(s) Allergy Type Date of Onset Reaction(s) Facility (5 sources) nickel; Translations: [NICKEL] Drug Allergy 10-23-2023 Unknown [facility] Medications Current Medications Medication Drug Class(es) Dates [...] Sig (Normalized) Sig (Original) polyethylene glycol 3350 073504 mg / potassium chloride 2970 mg / sodium bicarbonate 6740 mg / sodium chloride 5860 mg / sodium sulfate 63857 mg powder for oral solution (1 source) [...] 04-07-2025 Anion gap [Moles/Vol] 12 mmol/L 02-05 [facility] BUN/creatinine ratioOrdered By: Carol Flores on 04-07-2025 Urea nitrogen/Creatinine [Mass ratio] 22.8 mg/mg High 07-13 [facility] Bilirubin, totalOrdered By: Carol Flores on 04-07-2025 Bilirubin [Mass/Vol] 0.63 mg/dL 0.00-1.30 [facility] Carbon dioxide, total [Moles /volume] in Central venous bloodOrdered By: Carol Flores on 04-07-2025 CO2 [Moles/Vol] 25.3 mmol/L 21.0-32.0 [facility] Chloride assayOrdered By: Volodymyr Flores on 04-07-2025 Chloride [Moles/Vol] 104 mmol/L 98-108 [facility] Comprehensive Metabolic Prof ilon 04-07-2025 Albumin [Mass/Vol] 4.2 g/dL Normal 3.4-4.8 [facility] Comment on above: Order Comment: Order Date: 10/07/24 Order Info: 0786-1 - CMP Performed By: #### L 500.4050, L501.9985, L502.0250 #### [facility] [address] [place], [address] Albumin/Globulin [Mass ratio] 1.7 {ratio} Normal 0.9-2.4 [facility] Comment on above: Order Comment: Order Date: 10/07/24 Order Info: 0786-1 - CMP Performed By: #### L 500.4050, L501.9985, L502.0250 #### [facility] [address] [place], [address] ALK PHOS 65 U/L Normal 35-104 [facility] Comment on above: Order Comment: Order Date: 10/07/24 Order Info: 0786-1 - CMP Performed By: #### L 500.4050, L501.9985, L502.0250 #### [facility] [address] [place], [address] ALT [Catalytic activity/Vol] 13 U/L Normal <=34 [facility] Comment on above: Order Comment: Order Date: 10/07/24 Order Info: 0786-1 - CMP Performed By: #### L 500.4050, L501.9985, L502.0250 #### [facility] [address] [place], [address] AST [Catalytic activity/Vol] 19 U/L Normal <=31 [facility] Comment on above: Order Comment: Order Date: 10/07/24 Order Info: 0786-1 - CMP Performed By: #### L 500.4050, L501.9985, L502.0250 #### [facility] [address] [place], [address] Bilirubin [Mass/Vol] 0.63 mg/dL Normal 0.00-1.30 [facility] Comment on above: Order Comment: Order Date: 10/07/24 Order Info: 0786-1 - CMP Performed By: #### L 500.4050, L501.9985, L502.0250 #### [facility] [address] [place], [address] BUN/CRE 22.8 RATIO High 10-20 [facility] Comment on above: Order Comment: Order Date: 10/07/24 Order Info: 0786-1 - CMP Performed By: #### L 500.4050, L501.9985, L502.0250 #### [facility] [address] [place], [address] Calcium [Mass/Vol] 9.0 mg/dL Normal 7.6-11.0 [facility] Comment on above: Order Comment: Order Date: 10/07/24 Order Info: 0786-1 - CMP Performed By: #### L 500.4050, L501.9985, L502.0250 #### [facility] [address] [place], [address] Chloride [Moles/Vol] 104 mmol/L Normal 98-108 [facility] Comment on above: Order Comment: Order Date: 10/07/24 Order Info: 0786-1 - CMP Performed By: #### L 500.4050, L501.9985, L502.0250 #### [facility] [address] [place], [address] CO2 [Moles/Vol] 25.3 mmol/L Normal 21.0-32.0 [facility] Comment on above: Order Comment: Order Date: 10/07/24 Order Info: 0786-1 - CMP Performed By: #### L 500.4050, L501.9985, L502.0250 #### [facility] [address] [place], [address] Creatinine [Mass/Vol] 0.60 mg/dL Low 0.70-1.20 [facility] Comment on above: Order Comment: Order Date: 10/07/24 Order Info: 0786-1 - CMP Performed By: #### L 500.4050, L501.9985, L502.0250 #### [facility] [address] [place], [address] GAP 12 Normal 5-15 [facility] Comment on above: Order Comment: Order Date: 10/07/24 Order Info: 0786-1 - CMP Performed By: #### L 500.4050, L501.9985, L502.0250 #### [facility] [address] [place], [address] GFR/1.73 sq M.predicted among non-blacks MDRD (S/P/Bld) [Vol rate/Area] 102 mL/min/{1.73_m2} Normal >60 [facility] Comment on above: Order Comment: Order Date: 10/07/24 Order Info: 0786-1 - CMP Result Comment: mL/m in/1.73m2 CKD-EPI Creatinine Equation (2020) Performed By: #### L 500.4050, L501.9985, L502.0250 #### [facility] [address] [place], [address] Globulin (S) [Mass/Vol] 2.4 g/dL Normal 2.2-4.2 [facility] Comment on above: Order Comment: Order Date: 10/07/24 Order Info: 0786-1 - CMP Performed By: #### L 500.4050, L501.9985, L502.0250 #### [facility] [address] [place], [address] Glucose [Mass/Vol] 106 mg/dL High 70-99 [facility] Comment on above: Order Comment: Order Date: 10/07/24 Order Info: 0786-1 - CMP Performed By: #### L 500.4050, L501.9985, L502.0250 #### [facility] [address] [place], [address] Potassium [Moles/Vol] 3.9 mmol/L Normal 3.3-5.1 [facility] Comment on above: Order Comment: Order Date: 10/07/24 Order Info: 0786-1 - CMP Performed By: #### L 500.4050, L501.9985, L502.0250 #### [facility] [address] [place], [address] Sodium [Moles/Vol] 141 mmol/L Normal 133-145 [facility] Comment on above: Order Comment: Order Date: 10/07/24 Order Info: 0786-1 - CMP Performed By: #### L 500.4050, L501.9985, L502.0250 #### [facility] [address] [place], [address] T PROT 6.6 g/dL Normal 5.9-8.4 [facility] Comment on above: Order Comment: Order Date: 10/07/24 Order Info: 0786-1 - CMP Performed By: #### L 500.4050, L501.9985, L502.0250 #### [facility] [address] [place], [address] Urea nitrogen [Mass/Vol] 14 mg/dL Normal 4-19 [facility] Comment on above: Order Comment: Order Date: 10/07/24 Order Info: 0786-1 - CMP Performed By: #### L 500.4050, L501.9985, L502.0250 #### [facility] [address] [place], [address] Glomerular filtration rate ( GFR) estimation/1.73 sq m using serum, plasma, or whole bOrdered By: Carol Flores on 04-07-2025 GFR/1.73 sq M.predicted among non-blacks MDRD (S/P/Bld) [Vol rate/Area] 102 mL/min/{1.73_m2} >60 [facility] Comment on above: mL/min/1.73m2 CKD-EP I Creatinine Equation (2020) Hemoglobin A1con 04-07-2025 HbA1c (Bld) [Mass fraction] 6.4 % High <=5.6 [facility] Comment on above: Order Comment: Order Date: 10/07/24 Order Info: 4548-4 - A1C Result Comment: Norm al < 5.7 % Prediabetic 5.7 - 6.4 % Diabetic >or= 6.5 % Please note range changes. Performed By: #### L 500.4050, L501.9985, L502.0250 #### [facility] [address] [place], [place], [address] Hemoglobin A1c percentageOrd ered By: Carol Flores on 04-07-2025 HbA1c (Bld) [Mass fraction] 6.4 % High <5.7 [facility] Comment on above: Normal < 5.7 % Predi abetic 5.7 - 6.4 % Diabetic >or= 6.5 % Please note range changes. Laboratory - Chemistry and C hemistry - challengeOrdered By: Carol Flores on 04-07-2025 AST [Catalytic activity/Vol] 19 U/L <32 [facility] Microalb:Creat Ratio,Random URon 04-07-2025 Creatinine [Mass/Vol] 135.00 mg/dL Normal 28.00- 217.0 0 [facility] Comment on above: Order Comment: Order Date: 10/07/24 Order Info: [id number] - CREATU Order Info: 0779-1 - MIACRE Order Info: [id number] - ALBU Performed By: #### L 500.4050, L501.9985, L502.0250 #### [facility] [address] [place], [place], [address] MALB:CREAT UNABLE TO CALCULATE Normal <30 mg/g CRE [facility] Comment on above: Order Comment: Order Date: 10/07/24 Order Info: [id number] - CREATU Order Info: 0779-1 - MIACRE Order Info: [id number] - ALBU Performed By: #### L 500.4050, L501.9985, L502.0250 #### [facility] [address] [facility] [place], [address] MICROALBUMIN,UR < 12.0 Normal <20 mg/L [facility] Comment on above: Order Comment: Order Date: 10/07/24 Order Info: [id number] - CREATU Order Info: 0779-1 - MIACRE Order Info: [id number] - ALBU Performed By: #### L 500.4050, L501.9985, L502.0250 #### [facility] [address] [facility] [address] [facility] [place], [place], [address] Microalbumin/creat ratio urO rdered By: Carol Flores on 04-07-2025 Urine microalbumin/creatini ne ratio measurement UNABLE TO CALCULATE mg/g CRE <30 [facility] Potassium measurement (mass/ volume)Ordered By: Carol Flores on 04-07-2025 Potassium (Unsp spec) [Mass/Vol] 3.9 mmol/L 3.3-5.1 [facility] Random urine creatinine sharron urement (mass/volume)Ordered By: Carol Flores on 04-07-2025 Creatinine Unsp time (U) [Mass/Vol] 135.00 mg/dL 28.00-217.0 0 [facility] Serum creatinine measurement (mass/volume)Ordered By: Carol Flores on 04-07-2025 Creatinine [Mass/Vol] 0.60 mg/dL Low 0.70-1.20 [facility] Serum globulin measurementOr dered By: Carol Flores on 04-07-2025 Globulin (S) [Mass/Vol] 2.4 g/dL 2.2-4.2 [facility] Serum glucose measurement (m ass/volume)Ordered By: Carol Flores on 04-07-2025 Glucose [Mass/Vol] 106 mg/dL High 70-99 [facility] Serum or plasma alanine cisneros otransferase (ALT) measurementOrdered By: Carol Flores on 04-07-2025 ALT [Catalytic activity/Vol] 13 U/L <35 [facility] Serum or plasma albumin sharron urement (mass/volume)Ordered By: Carol Flores on 04-07-2025 Albumin [Mass/Vol] 4.2 g/dL 3.4-4.8 [facility] Serum or plasma albumin/glob ulin mass ratioOrdered By: Carol Flores on 04-07-2025 Albumin/Globulin [Mass ratio] 1.7 {ratio} 0.9-2.4 [facility] Serum or plasma alkaline bryan sphatase measurementOrdered By: Carol Flores on 04-07-2025 ALP [Catalytic activity/Vol] 65 U/L 35-104 [facility] Serum or plasma calcium sharron urement (mass/volume)Ordered By: Carol Flores on 04-07-2025 Calcium [Mass/Vol] 9.0 mg/dL 7.6-11.0 [facility] Serum or plasma urea nitroge n measurement (mass/volume)Ordered By: Carol Flores on 04-07-2025 Urea nitrogen [Mass/Vol] 14 mg/dL 4-19 [facility] Sodium levelOrdered By: Carol Flores on 04-07-2025 Sodium [Moles/Vol] 141 mmol/L 133-145 [facility] Total proteinOrdered By: Cheryl Flores on 04-07-2025 Protein [Mass/Vol] 6.6 g/dL 5.9-8.4 [facility] Urine albumin measurement [facility] detection limit of 20 mg/L or less (mass/volume)Ordered By: Carol Flores on 04-07-2025 Albumin DL <= 20 mg/L (U) [Mass/Vol] < 12.0 mg/L <20 mg/L [facility] Comprehensive Metabolic Prof ilon 10-03-2024 Albumin [Mass/Vol] 3.5 g/dL Normal 3.2-5.0 [facility] Comment on above: Performed By: #### L 500.4050, L502.0250, L501.9539, L501.9989, L500.4749 #### [facility] [address] [place], [place] [address], [address] Albumin/Globulin [Mass ratio] 1.1 {ratio} Normal 0.9-2.4 [facility] Comment on above: Performed By: #### L 500.4050, L502.0250, L501.9520, L501.9985, L500.4100 #### [facility] [address] [place], [address] ALK P 65 U/L Normal 45-117 [facility] Comment on above: Performed By: #### L 500.4050, L502.0250, L501.9520, L501.9985, L500.4100 #### [facility] [address] [place], [address] ALT [Catalytic activity/Vol] 18 U/L Normal 13-56 [facility] Comment on above: Performed By: #### L 500.4050, L502.0250, L501.9520, L501.9985, L500.4100 #### [facility] [address] [place], [address] AST [Catalytic activity/Vol] 14 U/L Low 15-37 [facility] Comment on above: Performed By: #### L 500.4050, L502.0250, L501.9520, L501.9985, L500.4100 #### [facility] [address] [place], [address] Bilirubin [Mass/Vol] 0.80 mg/dL Normal 0.20-1.00 [facility] Comment on above: Result Comment: For patients on eltrombopag therapy, use of Dimension [place] TBIL is not recommended. Performed By: #### L 500.4050, L502.0250, L501.9520, L501.9985, L500.4100 #### [facility] [address] [place], [address] BUN/CRE 26.8 RATIO High 10-20 [facility] Comment on above: Performed By: #### L 500.4050, L502.0250, L501.9520, L501.9985, L500.4100 #### [facility] [address] [place], [address] CA,Total 8.7 mg/dL Normal 8.5-10.1 [facility] Comment on above: Performed By: #### L 500.4050, L502.0250, L501.9520, L501.9985, L500.4100 #### [facility] [address] [place], [address] Chloride [Moles/Vol] 107 mmol/L Normal 98-107 [facility] Comment on above: Performed By: #### L 500.4050, L502.0250, L501.9520, L501.9985, L500.4100 #### [facility] [address] [place], [address] CO2 [Moles/Vol] 28.0 mmol/L Normal 21.0-32.0 [facility] Comment on above: Performed By: #### L 500.4050, L502.0250, L501.9520, L501.9985, L500.4100 #### [facility] [address] [place], [address] Creatinine [Mass/Vol] 0.60 mg/dL Normal 0.55-1.02 [facility] Comment on above: Result Comment: The validity of the calculated GFR GFRAA in patients over 70 years has not been determined. Clinical correlation is essential. Performed By: #### L 500.4050, L502.0250, L501.9520, L501.9985, L500.4100 #### [facility] [address] [place], [address] EST GFR - AA 132 mL/min Normal >60 [facility] Comment on above: Result Comment: Afri can [place] GFR Calc Performed By: #### L 500.4050, L502.0250, L501.9520, L501.9985, L500.4100 #### [facility] [address] [place], [address] GAP 4 Low 5-15 [facility] Comment on above: Performed By: #### L 500.4050, L502.0250, L501.9520, L501.9985, L500.4100 #### [facility] [address] [place], [address] GFR/1.73 sq M.predicted among non-blacks MDRD (S/P/Bld) [Vol rate/Area] 109 mL/min/{1.73_m2} Normal >60 [facility] Comment on above: Result Comment: Non- GFR Calc Performed By: #### L 500.4050, L502.0250, L501.9520, L501.9985, L500.4100 #### [facility] [address] [place], [address] Globulin (S) [Mass/Vol] 3.2 g/dL Normal 2.2-4.2 [facility] Comment on above: Performed By: #### L 500.4050, L502.0250, L501.9520, L501.9985, L500.4100 #### [facility] [address] [place], [address] Glucose [Mass/Vol] 109 mg/dL High 74-106 [facility] Comment on above: Result Comment: Fast ing Glucose result from 100 to 125 mg/dL suggests IMPAIRED HOMEOSTASIS per A.D.A. criteria. Performed By: #### L 500.4050, L502.0250, L501.9520, L501.9985, L500.4100 #### [facility] [address] [place], [address] Potassium [Moles/Vol] 4.4 mmol/L Normal 3.5-5.1 [facility] Comment on above: Performed By: #### L 500.4050, L502.0250, L501.9520, L501.9985, L500.4100 #### [facility] [address] [place], [address] Sodium [Moles/Vol] 139 mmol/L Normal 136-145 [facility] Comment on above: Performed By: #### L 500.4050, L502.0250, L501.9520, L501.9985, L500.4100 #### [facility] [address] [place], [address] T PROT 6.7 g/dL Normal 6.4-8.2 [facility] Comment on above: Performed By: #### L 500.4050, L502.0250, L501.9520, L501.9985, L500.4100 #### [facility] [address] [place], [address] Urea nitrogen [Mass/Vol] 16 mg/dL Normal 7-18 [facility] Comment on above: Performed By: #### L 500.4050, L502.0250, L501.9520, L501.9985, L500.4100 #### [facility] [address] [place], [address] Hemoglobin A1con 10-03-2024 HbA1c (Bld) [Mass fraction] 6.4 % High 3.8-5.6 [facility] Comment on above: Result Comment: Norm al < 5.7 % Prediabetic 5.7 - 6.4 % Diabetic >or= 6.5 % Please note range changes. Performed By: #### L 500.4050, L502.0250, L501.9520, L501.9985, L500.4100 #### [facility] [address] [place], [address] Lipid Profileon 10-03-2024 Cholesterol [Mass/Vol] 160 mg/dL Normal 200 [facility] Comment on above: Result Comment: <200 mg/dL Desirable 200-240 mg/dL Borderline >240 mg/dL High Risk Performed By: #### L 500.4050, L502.0250, L501.9520, L501.9985, L500.4100 #### [facility] [address] [place], [address] Cholesterol in HDL [Mass/Vol] 75 mg/dL Normal [facility] Comment on above: Result Comment: The drugs N-Acetylcysteine and Metamizole may falsely depress this assay. Reference Range HDL <40 mg/dL Low HDL Cholesterol HDL >or= 60 mg/dL High HDL Cholesterol Performed By: #### L 500.4050, L502.0250, L501.9520, L501.9985, L500.4100 #### [facility] [address] [place], [address] Cholesterol in LDL [Mass/Vol] 73 mg/dL Normal 0-130 [facility] Comment on above: Performed By: #### L 500.4050, L502.0250, L501.9520, L501.9985, L500.4100 #### [facility] [address] [place], [address] Cholesterol in VLDL [Mass/Vol] 12 mg/dL Normal 5-40 [facility] Comment on above: Performed By: #### L 500.4050, L502.0250, L501.9520, L501.9985, L500.4100 #### [facility] [address] [place], [address] Triglyceride [Mass/Vol] 59 mg/dL Normal [facility] Comment on above: Result Comment: The drugs N-Acetylcysteine and Metamizole may falsely depress this assay. Serum Triglycerides Reference Interval Normal <150 mg/dL Borderline high 150 - 199 mg/dL High 200 - 499 mg/dL Very High > or = 500 mg/dL Performed By: #### L 500.4050, L502.0250, L501.9520, L501.9985, L500.4100 #### [facility] [address] [place], [address] Microalb:Creat Ratio,Random URon 10-03-2024 Creatinine [Mass/Vol] 116.00 mg/dL Normal NO RAN GE EST. [facility] Comment on above: Performed By: #### L 500.4050, L502.0250, L501.9520, L501.9985, L500.4100 #### [facility] [address] [place], [address] MALB:CRE 9.7 mg/g CRE Normal <30 mg/g CRE [facility] Comment on above: Performed By: #### L 500.4050, L502.0250, L501.9520, L501.9985, L500.4100 #### [facility] [address] [place], [address] MICROALBUMIN,UR 11.3 mg/L Normal NO RANGE EST. [facility] Comment on above: Performed By: #### L 500.4050, L502.0250, L501.9520, L501.9985, L500.4100 #### [facility] [address] [place], [address] Thyroid Stim Hormone (TSH)on 10-03-2024 TSH 0.826 uIU/mL Normal 0.358-3.740 [facility] Comment on above: Performed By: #### L 500.4050, L502.0250, L501.9520, L501.9985, L500.4100 #### [facility] [address] [place], [address] SCRN MAMM (CAD)W/TAMMY BILATo n 04-29-2024 SCRN MAMM (CAD)W/TAMMY BILAT [facility] Imaging Services [address] [facility] [place] [address] SCRN MAMM (CAD)W/TAMMY BILAT MR#: [id number] Acct: [id number] Name: YUNIER FUNEZ Rep #: [id number] : 1965 F 58 From: Rafael jordan MD PCP: Dr. Carol Flores MD Status: [facility] Study: SCRN MAMM (CAD)W/TAMMY BILAT Date of Exam: 03/17 Exam# [id number] Ordering Dr: Carol Flores MD [id number] MAMMOGRAPHY - BILATERAL SCREENING REASON FOR EXAM: [...] delay biopsy of a clinically suspicious abnormality. [id number] Electronically Signed: Rafael Wood MD at 8:21 EDT , CC: Dr. Carol Flores MD Literacy Coach: Signed Normal [facility] CNOVon 12-17-2023 CNOV Office Visit (GENSWS ) -- YUNIER FUNEZ ([id number]) 1965 F Date Time Provider Department 12/17/23 [...] breasts Abnormal thyroid ultrasound 10/11/2023 performed at [facility] Diabetes (HCC) History of adenomatous polyp of colon 2019 repeat 5 years Hypercholesterolemia Hypertension Nickel allergy Osteoarthritis of right wrist Seasonal allergies Thyroid nodule Type 2 diabetes mellitus (HCC) Vitamin D deficiency PAST SURGICAL HISTORY Procedure Laterality Date APPENDECTOMY HX 1977 COLONOSCOPY 2019 adenomatous polyp, repeat 5 years Current Outpatient Medications Medication Sig Insulin [place], Disposable, (BD ULTRA-FINE LAKIA PEN NEEDLE) 32 [...] entered by the nurse and reviewed by mn Nursing Notes: Tameka Paredes RN 12/17/2023 1:02 [...] denies ga (more content not included)... Normal [facility] COLONOSCOPY SCREENINGon [facility] Colonoscopyon 10-30-2023 Colonoscopy [place] [facility] Gastrointestinal Endoscopy Patient Name: Yunier Funez Procedure [...] previous diet. Procedure Code(s): --- Professional --- 72663, Colonoscopy, flexible; diagnostic, including collection of specimen(s) by brushing or washing, when performed (separate procedure) 92234, 57, Moderate sedation services provided by the same physician or other qualified health rn medicare performing the diagnostic or therapeutic service that [...] malignant neoplasm of colon CPT copyright 2020 [employer]. All rights reserved. The codes documented in this report are preliminary and upon grades 9 thru 12 visiting teacher review may be revised to (more content not included)... Normal [facility] HISTORY PHYSICALon HISTORY PHYSICAL HNO ID: [id number] Author: DEEPIKA CABRERA MD Service: General Surgery [...] MEDICATIONS Current Outpatient Medications Medication Sig Insulin [place], Disposable, (BD ULTRA-FINE LAKIA PEN NEEDLE) 32 [...] entered by the nurse and reviewed by mn Nursing Notes: Tameka Paredes RN 10/24/2023 3:27 [...] psychiatric medic (more content not included)... Normal [facility] [facility] 10-30-2023 NURSING PROG HNO ID: [id number] Author: INDU FERRARA RN Service: ? Author Type: Registered Nurse Type: Nursing Progress Note Filed: 10/30/2023 11:59 Note Text: Blood sugar checked with her own Dexcom 36, result 93. Is eating randal crackers, water and black coffee. at bedside now as well. Normal [facility] NURSING PROG HNO ID: [id number] Author: TERESSA LANDERS RN Service: ? Author Type: Registered Nurse Type: Nursing Progress Note Filed: 10/30/2023 11:40 Note Text: Patient arrived laying on left side. Patient does not appear to be in any pain at this time and denies pain when asked. Abdomen appears to be nondistended and soft to palpation. Patient encouraged to belch and pass gas as needed. Normal [facility] YUNIER FUNEZ ([id number]) 1965 F Date Time Provider Department 10/25/23 [...] [Other] Prescriptions as of 07/29/2024 - Insulin [place], Disposable, (BD ULTRA-FINE LAKIA PEN NEEDLE) 32 [...] Status:Closed by GLADYS ECHEVERRIA on 07/29/24 Normal [facility] CNOVon 10-24-2023 CNOV Office Visit (GENSWS ) -- YUNIER FUNEZ ([id number]) 1965 F Date Time Provider Department 10/24/23 [...] years Current Outpatient Medications Medication Sig Insulin [place], Disposable, (BD ULTRA-FINE LAKIA PEN NEEDLE) 32 [...] with meals. (more content not included)... Normal [facility] Basophil percentageOrdered B y: Carolgayle Flores on 09-21-2023 Bilirubin [Mass/Vol] 0.80 mg/dL 0.20-1.00 [facility] Comment on above: For patients on eltr ombopag therapy, use of Dimension [place] TBIL is not recommended. Chloride [Moles/Vol] 108 mmol/L 98-107 [facility] Cholesterol [Mass/Vol] 195 mg/dL <200 [facility] Comment on above: <200 mg/dL Desirable 200-240 mg/dL Borderline >240 mg/dL High Risk Glucose [Mass/Vol] 103 mg/dL 74-106 [facility] Comment on above: Fasting Glucose resu lt from 100 to 125 mg/dL suggests IMPAIRED HOMEOSTASIS per A.D.A. criteria. Potassium [Moles/Vol] 3.7 mmol/L 3.5-5.1 [facility] Protein [Mass/Vol] 6.6 g/dL 6.4-8.2 [facility] Sodium [Moles/Vol] 144 mmol/L 136-145 [facility] Triglyceride [Mass/Vol] 122 mg/dL <199 [facility] Comment on above: The drugs N-Acetylcy steine and Metamizole may falsely depress this assay.Serum Triglycerides Reference Interval Normal <150 mg/dL Borderline high 150 - 199 mg/dL High 200 - 499 mg/dL Very High > or = 500 mg/dL Laboratory - Chemistry and C hemistry - challengeOrdered By: Carol Flores on 09-21-2023 ALP [Catalytic activity/Vol] 71 U/L 45-117 [facility] ALT [Catalytic activity/Vol] 20 U/L 13-56 [facility] CO2 [Moles/Vol] 28.0 mmol/L 21.0-32.0 [facility] Free T4 [Mass/Vol] 1.00 ng/dL 0.76-1.46 [facility] Globulin (S) [Mass/Vol] 3.0 g/dL 2.2-4.2 [facility] Urea nitrogen/Creatinine [Mass ratio] 34.5 mg/mg 10-20 [facility] No Panel InformationOrdered By: Carol Flores on 09-21-2023 Estimated GFR (MDRD) Amer 122 mL/min >60 [facility] Comment on above: GFR Calc Estimated GFR (MDRD) Non-Af Amer 101 mL/min >60 [facility] Comment on above: Non- GFR Calc Thyroid Stimulating Hormone (TSH) 0.90 uIU/mL 0.358-3.74 [facility] Serum or plasma albumin sharron urement (mass/volume)Ordered By: Carol Flores on 09-21-2023 Albumin [Mass/Vol] 3.6 g/dL 3.2-5.0 [facility] Serum or plasma albumin/glob ulin mass ratioOrdered By: Carol Flores on 09-21-2023 Albumin/Globulin [Mass ratio] 1.2 {ratio} 0.9-2.4 [facility] Serum or plasma calcium sharron urement (mass/volume)Ordered By: Carol Flores on 09-21-2023 Calcium [Mass/Vol] 8.4 mg/dL 8.5-10.1 [facility] Serum or plasma cholesterol in HDL measurement (mass/volume)Ordered By: Carol Flores on 09-21-2023 Cholesterol in HDL [Mass/Vol] 65 mg/dL >40 [facility] Comment on above: The drugs N-Acetylcy steine and Metamizole may falsely depress this assay. Reference Range HDL <40 mg/dL Low HDL Cholesterol HDL >or= 60 mg/dL High HDL Cholesterol Serum or plasma cholesterol in VLDL measurement (mass/volume)Ordered By: Carol Flores on 09-21-2023 Cholesterol in VLDL [Mass/Vol] 24 mg/dL 5-40 [facility] Serum or plasma creatinine m easurement (mass/volume)Ordered By: Carol Flores on 09-21-2023 Creatinine [Mass/Vol] 0.64 mg/dL 0.55-1.02 [facility] Comment on above: The validity of the calculated GFR & GFRAA in patients over 70 years has not been determined. Clinical correlation is essential. Serum or plasma low density lipoprotein (LDL) cholesterol measurement (mass/volume)Ordered By: Carol Flores on 09-21-2023 Cholesterol in LDL [Mass/Vol] 106 mg/dL 0-130 [facility] Serum or plasma urea nitroge n measurement (mass/volume)Ordered By: Carol Flores on 09-21-2023 Urea nitrogen [Mass/Vol] 22 mg/dL 7-18 [facility] Thin prep Papanicolaou smear with manual screeningOrdered By: Carol Flores on 09-21-2023 Thin prep Papanicolaou smear with manual screening 21 U/L 15-37 [facility] Thin prep Papanicolaou smear with manual screening 8 5-15 [facility] Whole blood hemoglobin A1c/t otal hemoglobin ratio (mass fraction)Ordered By: Carol Flores on 09-21-2023 HbA1c (Bld) [Mass fraction] 6.3 % 3.8-5.6 [facility] Comment on above: Normal < 5.7 % Predi abetic 5.7 - 6.4 % Diabetic >or= 6.5 % Please note range changes. Basophil percentageOrdered B y: Carol Flores on 04-02-2023 Bilirubin [Mass/Vol] 0.50 mg/dL 0.20-1.00 [facility] Comment on above: For patients on eltr ombopag therapy, use of Dimension [place] TBIL is not recommended. Chloride [Moles/Vol] 102 mmol/L 98-107 [facility] Cholesterol [Mass/Vol] 212 mg/dL <200 [facility] Comment on above: <200 mg/dL Desirable 200-240 mg/dL Borderline >240 mg/dL High Risk Glucose [Mass/Vol] 122 mg/dL 74-106 [facility] [place] Comment on above: Fasting Glucose resu lt from 100 to 125 mg/dL suggests IMPAIRED HOMEOSTASIS per A.D.A. criteria. Potassium [Moles/Vol] 4.3 mmol/L 3.5-5.1 [facility] Protein [Mass/Vol] 7.6 g/dL 6.4-8.2 [facility] Sodium [Moles/Vol] 136 mmol/L 136-145 [facility] Triglyceride [Mass/Vol] 250 mg/dL <199 [facility] Comment on above: The drugs N-Acetylcy steine and Metamizole may falsely depress this assay.Serum Triglycerides Reference Interval Normal <150 mg/dL Borderline high 150 - 199 mg/dL High 200 - 499 mg/dL Very High > or = 500 mg/dL Laboratory - Chemistry and C hemistry - challengeOrdered By: Carol Flores on 04-02-2023 ALP [Catalytic activity/Vol] 90 U/L 45-117 [facility] ALT [Catalytic activity/Vol] 42 U/L 13-56 [facility] CO2 [Moles/Vol] 30.0 mmol/L 21.0-32.0 [facility] Globulin (S) [Mass/Vol] 3.8 g/dL 2.2-4.2 [facility] Urea nitrogen/Creatinine [Mass ratio] 22.5 mg/mg 10-20 [facility] No Panel InformationOrdered By: Carol Flores on 04-02-2023 Estimated GFR (MDRD) Amer 101 mL/min >60 [facility] Comment on above: GFR Calc Estimated GFR (MDRD) Non-Af Amer 83 mL/min >60 [facility] Comment on above: Non- GFR Calc Vitamin D 25-Hydroxy 48.8 ng/mL [facility] Comment on above: Vitamin D 25(OH) Sta tus Range Deficiency <20 ng/mL (50nmol/L) Insufficiency 20 - 30 ng/mL (50 - 75 nmol/L) Sufficiency 30 - 100 ng/mL (75 - 250 nmol/L) Toxicity >100 ng/mL (>250 nmol/L) Serum or plasma albumin sharron urement (mass/volume)Ordered By: Carol Flores on 04-02-2023 Albumin [Mass/Vol] 3.8 g/dL 3.2-5.0 [facility] Serum or plasma albumin/glob ulin mass ratioOrdered By: Carol Flores on 04-02-2023 Albumin/Globulin [Mass ratio] 1.0 {ratio} 0.9-2.4 [facility] Serum or plasma calcium sharron urement (mass/volume)Ordered By: Carol Flores on 04-02-2023 Calcium [Mass/Vol] 9.1 mg/dL 8.5-10.1 [facility] Serum or plasma cholesterol in HDL measurement (mass/volume)Ordered By: Carol Flores on 04-02-2023 Cholesterol in HDL [Mass/Vol] 58 mg/dL >40 [facility] Comment on above: The drugs N-Acetylcy steine and Metamizole may falsely depress this assay. Reference Range HDL <40 mg/dL Low HDL Cholesterol HDL >or= 60 mg/dL High HDL Cholesterol Serum or plasma cholesterol in VLDL measurement (mass/volume)Ordered By: Carol Flores on 04-02-2023 Cholesterol in VLDL [Mass/Vol] 50 mg/dL 5-40 [facility] Serum or plasma creatinine m easurement (mass/volume)Ordered By: Carol Flores on 04-02-2023 Creatinine [Mass/Vol] 0.76 mg/dL 0.55-1.02 [facility] Comment on above: The validity of the calculated GFR & GFRAA in patients over 70 years has not been determined. Clinical correlation is essential. Serum or plasma low density lipoprotein (LDL) cholesterol measurement (mass/volume)Ordered By: Carol Flores on 04-02-2023 Cholesterol in LDL [Mass/Vol] 104 mg/dL 0-130 [facility] Serum or plasma urea nitroge n measurement (mass/volume)Ordered By: Carol Flores on 04-02-2023 Urea nitrogen [Mass/Vol] 17 mg/dL 7-18 [facility] Thin prep Papanicolaou smear with manual screeningOrdered By: Carol Flores 04-02-2023 Thin prep Papanicolaou smear with manual screening 30 U/L 15-37 [facility] Thin prep Papanicolaou smear with manual screening 4 5-15 [facility] Basophil percentageOrdered B y: Dr. Flores on 09-21-2022 Bilirubin [Mass/Vol] 0.50 mg/dL 0.20-1.00 [facility] Comment on above: For patients on eltr ombopag therapy, use of Dimension [place] TBIL is not recommended. Chloride [Moles/Vol] 103 mmol/L 98-107 [facility] Cholesterol [Mass/Vol] 198 mg/dL <200 [facility] Comment on above: <200 mg/dL Desirable 200-240 mg/dL Borderline >240 mg/dL High Risk Glucose [Mass/Vol] 130 mg/dL 74-106 [facility] Comment on above: Fasting Glucose resu lt greater than or equal to 126 mg/dL suggests DIABETES MELLITUS per A.D.A. criteria. Potassium [Moles/Vol] 4.0 mmol/L 3.5-5.1 [facility] Protein [Mass/Vol] 7.0 g/dL 6.4-8.2 [facility] Sodium [Moles/Vol] 139 mmol/L 136-145 [facility] Triglyceride [Mass/Vol] 185 mg/dL <199 [facility] Comment on above: The drugs N-Acetylcy steine and Metamizole may falsely depress this assay.Serum Triglycerides Reference Interval Normal <150 mg/dL Borderline high 150 - 199 mg/dL High 200 - 499 mg/dL Very High > or = 500 mg/dL Laboratory - Chemistry and C hemistry - challengeOrdered By: Dr. Flores on 09-21-2022 ALP [Catalytic activity/Vol] 91 U/L 45-117 [facility] ALT [Catalytic activity/Vol] 38 U/L 13-56 [facility] CO2 [Moles/Vol] 28.0 mmol/L 21.0-32.0 [facility] Globulin (S) [Mass/Vol] 3.4 g/dL 2.2-4.2 [facility] Urea nitrogen/Creatinine [Mass ratio] 17.9 mg/mg 10-20 [facility] No Panel InformationOrdered By: Dr. Flores on 09-21-2022 Estimated GFR (MDRD) Amer 116 mL/min >60 [facility] Comment on above: GFR Calc Estimated GFR (MDRD) Non-Af Amer 96 mL/min >60 [facility] Comment on above: Non- GFR Calc Thyroid Stimulating Hormone (TSH) 0.61 uIU/mL 0.358-3.74 [facility] Vitamin D 25-Hydroxy 54.0 ng/mL [facility] Comment on above: Vitamin D 25(OH) Sta tus Range Deficiency <20 ng/mL (50nmol/L) Insufficiency 20 - 30 ng/mL (50 - 75 nmol/L) Sufficiency 30 - 100 ng/mL (75 - 250 nmol/L) Toxicity >100 ng/mL (>250 nmol/L) Serum or plasma albumin sharron urement (mass/volume)Ordered By: Dr. Flores on 09-21-2022 Albumin [Mass/Vol] 3.6 g/dL 3.2-5.0 [facility] Serum or plasma albumin/glob ulin mass ratioOrdered By: Dr. Flores on 09-21-2022 Albumin/Globulin [Mass ratio] 1.1 {ratio} 0.9-2.4 [facility] Serum or plasma calcium sharron urement (mass/volume)Ordered By: Dr. Flores on 09-21-2022 Calcium [Mass/Vol] 8.8 mg/dL 8.5-10.1 [facility] Serum or plasma cholesterol in HDL measurement (mass/volume)Ordered By: Dr. Flores on 09-21-2022 Cholesterol in HDL [Mass/Vol] 54 mg/dL >40 [facility] Comment on above: The drugs N-Acetylcy steine and Metamizole may falsely depress this assay. Reference Range HDL <40 mg/dL Low HDL Cholesterol HDL >or= 60 mg/dL High HDL Cholesterol Serum or plasma cholesterol in VLDL measurement (mass/volume)Ordered By: Dr. Flores on 09-21-2022 Cholesterol in VLDL [Mass/Vol] 37 mg/dL 5-40 [facility] Serum or plasma creatinine m easurement (mass/volume)Ordered By: Dr. Flores on 09-21-2022 Creatinine [Mass/Vol] 0.67 mg/dL 0.55-1.02 [facility] Comment on above: The validity of the calculated GFR & GFRAA in patients over 70 years has not been determined. Clinical correlation is essential. Serum or plasma low density lipoprotein (LDL) cholesterol measurement (mass/volume)Ordered By: Dr. Flores on 09-21-2022 Cholesterol in LDL [Mass/Vol] 107 mg/dL 0-130 [facility] Serum or plasma urea nitroge n measurement (mass/volume)Ordered By: Dr. Flores on 09-21-2022 Urea nitrogen [Mass/Vol] 12 mg/dL 7-18 [facility] Thin prep Papanicolaou smear with manual screeningOrdered By: Dr. Flores on 09-21-2022 Thin prep Papanicolaou smear with manual screening 19 U/L 15-37 [facility] Thin prep Papanicolaou smear with manual screening 8 5-15 [facility] Whole blood hemoglobin A1c/t otal hemoglobin ratio (mass fraction)Ordered By: Dr. Flores on 09-21-2022 HbA1c (Bld) [Mass fraction] 6.5 % 3.8-5.6 [facility] Comment on above: Normal < 5.7 [...] Sign Date: 12/04/2019 8:13:58 AM Ordering Provider:Bipin [facility] ([place]) XR KNEE THREE VIEWS LEFTon 0 12-04-2019 [...] AM Sign Date: 12/04/2019 8:38:55 AM Ordering Provider:[facility]) XR SACRUM/COCCYX MINIMUM 2 V IEWSon 12-04-2019 [...] AM Sign Date: 12/04/2019 8:12:32 AM Ordering Provider:[facility]) XR SPINE LUMBAR AP/LATon XR SPINE LUMBAR [...] AM Sign Date: 12/04/2019 8:39:41 AM Ordering Provider:[facility]) XR TIBIA/FIBULA 2 VIEWS LEFT on 12-04-2019 [...] Date: 12/04/2019 8:38:31 AM Ordering Provider:Bipin Rivera [facility] ([place]) Troponin Ion 07-21-2017 Troponin I.cardiac mass conc ng/mL Normal <=0.[address] [facility] Comment on above: Performed By: #### M TRP ####[place] [address] Basic Panelon 07-20-2017 Anion gap 16 mmol/L Normal - [facility] Comment on above: Performed By: #### M P8 ####[place] [address] BUN (urea nitrogen) 12 mg/dL Normal - [facility] Comment on above: Performed By: #### M P8 ####[place] [address] Calcium 7.8 mg/dL Low 8.5-10.[address] [facility] Comment on above: Performed By: #### M P8 ####[place] [address] Chloride 107 mmol/L Normal 98-[address] [facility] Comment on above: Performed By: #### M P8 ####[place] [address] CO2 20 mmol/L Low 22-[address] [facility] Comment on above: Performed By: #### M P8 ####[place] [address] Creatinine 0.48 mg/dL Low 0.51-0.[address] [facility] Comment on above: Performed By: #### M P8 ####[place] [address] Glucose mass conc 219 mg/dL High 70-[address] [facility] Comment on above: Performed By: #### M P8 ####[place] [address] Potassium molar conc 3.3 mmol/L Low 3.5-5.[address] [facility] Comment on above: Performed By: #### M P8 ####[facility] [place], [place] [address] Sodium 140 mmol/L Normal 136-[address] [facility] Comment on above: Performed By: #### M P8 ####[facility] [place], [place] [address] ED NOTEon 07-20-2017 ED NOTE HNO ID: [id number] thor: Olamide ShahRn) STEPH Rayervice: (none)Author Type: Registered NurseType: ED NotesFiled: 07/20/2017 9:25 PMNote Text: Patient updated on the plan of care. Patient is resting quietly in room. Safety and comfort maintained. Call light in reach. Monitoringcontinued. Normal [facility] ED NOTE HNO ID: [id number] thor: Alexandr Tejada) STEPH Coelloervice: Emergency MedicineAuthor Type: Registered NurseType: ED NotesFiled: 07/20/2017 9:09 PMNote Text:Patient admits with c/o syncopal episode. Patient is alert and orientedx3 and able to follow commands. Respirations easy and even. Safety andcomfort care maintained. Call light in reach. Continuous cardiac andpulse oxygen monitoring in place. Normal [facility] ED PROV NOTEon 07-20-2017 ED PROV NOTE HNO ID: [id number] thor: ROSETTE Berkowitzervice: Emergency MedicineAuthor Type: PhysicianType: ED Provider NotesFiled: 07/26/2017 3:38 PMNote Text:ED Provider NotePatient Name: Yunier FunezMRN: [id number] DATE: 07/20/17HistoryPatient presents with:SyncopeHPIThe patient is a middle-aged female who was eating dinner and hadfinished. She then began feeling a little dizzy. She was lightheaded.She then passed out. Patient's states that she had an actualsyncopal episode. She does not recall the event. She does recall feelingweak and dizzy and lightheaded immediately prior to this happening. Sheknows that she is in a qmy-umzqupf-pratiotgd diabetic. She also notesthat she did drink [...] disposition: stableSIGNATURE: Rosie Berkowitz MD07/26/17 1538 Normal [facility] Hemogram/Diffon 07-20-2017 Basophils Auto #/vol (Bld) 0.02 thou/cmm Normal 0.00-0.[address] [facility] Comment on above: Performed By: #### N CBCD ####[address] [address] Basophils/100 WBC Auto (Bld) 0.2 % Normal 0.0-1.[address] [facility] Comment on above: Performed By: #### N CBCD ####[address] [address] Eosinophils 0.10 thou/cmm Normal 0.00-0.[address] [facility] Comment on above: Performed By: #### N CBCD ####[address] [address] Eosinophils/100 leukocytes 1.2 % Normal 0.0-5.[address] [facility] Comment on above: Performed By: #### N CBCD ####[facility] [place], [place] [address] Erythrocyte distribution width Auto Ratio (RBC) 12.5 % Normal 11.8-14.[address] [facility] Comment on above: Performed By: #### N CBCD ####[address] [address] Erythrocytes (RBC) 4.69 mil/cmm Normal 3.79-4.[address] [facility] Comment on above: Performed By: #### N CBCD ####[address] [address] Hematocrit (HCT) 40.2 % Normal 34.7-43.[address] [facility] Comment on above: Performed By: #### N CBCD ####[address] [address] Hemoglobin mass conc (Bld) 13.7 g/dL Normal 11.7-14.[address] [facility] Comment on above: Performed By: #### N CBCD ####[address] [address] Lymphocytes 3.31 thou/cmm High 0.68-2.[address] [facility] Comment on above: Performed By: #### N CBCD ####[address] [address] Lymphocytes/100 leukocytes 38.5 % Normal 17.3-43.[address] [facility] Comment on above: Performed By: #### N CBCD ####[address] [address] MCH 29.2 pg Normal 27.4-32.[address] [facility] Comment on above: Performed By: #### N CBCD ####[address] [address] MCHC mass conc (RBC) 34.1 % Normal 31.9-35.[address] [facility] Comment on above: Performed By: #### N CBCD ####[address] [address] MCV 85.7 fL Normal 82.1-97.[address] [facility] Comment on above: Performed By: #### N CBCD ####[facility] [place], [place] [address] Monocytes 0.76 thou/cmm Normal 0.19-0.[address] [facility] Comment on above: Performed By: #### N CBCD ####[address] [address] Monocytes/100 leukocytes 8.8 % Normal 3.6-13.[address] [facility] Comment on above: Performed By: #### N CBCD ####[address] [address] Platelet mean volume (PMV) 10.8 fL Normal 8.8-12.[address] [facility] Comment on above: Performed By: #### N CBCD ####[address] [address] Platelets 272 thou/cmm Normal 150-[address] [facility] Comment on above: Performed By: #### N CBCD ####[address] [address] Seg Neutrophil 51.3 % Normal 41.3-72.[address] [facility] Comment on above: Performed By: #### N CBCD ####[address] [address] Seg. Neut.# 4.43 thou/cmm Normal 1.35-7.[address] [facility] Comment on above: Performed By: #### N CBCD ####[address] [address] WBC (Leukocytes) 8.6 thou/cmm Normal 4.4-9.[address] [facility] Comment on above: Performed By: #### N CBCD ####[address] [address] MDRD eGFRon 07-20-2017 eGFR (non-black) mL/min/{1.73_m2} Normal >60mL/m in/[address] [facility] Comment on above: Result Comment: If t he patient is , multiply the result by 1.210. Performed By: #### M GFR ####[address] [address] Vital Signs Date Time Vital Sign Value Performing Clinician Faci lity 12-17-2023 11:51-0400 Body height 159.4 cm Deepika Cabrera MD Work Phone: [facility] 12-17-2023 11:51-0400 Body temperature 97.81 [degF] Deepika Cabrera MD Work Phone: [facility] 12-17-2023 11:51-0400 Body weight 64.23 kg Deepika Cabrera MD Work Phone: [facility] 12-17-2023 11:51-0400 Diastolic blood pressure 60 mm[Hg] Deepika Cabrera MD Work Phone: [facility] 12-17-2023 11:51-0400 Heart rate 74 /min Deepika Cabrera MD Work Phone: [facility] 12-17-2023 11:51-0400 SaO2% (BldA) [Mass fraction] 97 % Deepika Cabrera MD Work Phone: [facility] 12-17-2023 11:51-0400 Systolic blood pressure 128 mm[Hg] Deepika Cabrera MD Work Phone: [facility] 10-30-2023 12:03-0500 Diastolic blood pressure 66 mm[Hg] Deepika Cabrera MD Work Phone: [facility] 10-30-2023 12:03-0500 Heart rate 59 /min Deepika Cabrera MD Work Phone: [facility] 10-30-2023 12:03-0500 Respiratory rate 16 /min Deepika Cabrera MD Work Phone: [facility] 10-30-2023 12:03-0500 SaO2% (BldA) [Mass fraction] 100 % Deepika Cabrera MD Work Phone: [facility] 10-30-2023 12:03-0500 Systolic blood pressure 120 mm[Hg] Deepika Cabrera MD Work Phone: [facility] 10-30-2023 10:29-0500 Body temperature 97.5 [degF] Deepika Cabrera MD Work Phone: [facility] 10-24-2023 15:23-0500 Body height 157.5 cm Deepika Cabrera MD Work Phone: [facility] 10-24-2023 15:23-0500 Body temperature 97.5 [degF] Deepika Cabrera MD Work Phone: [facility] 10-24-2023 15:23-0500 Body weight 63.14 kg Deepika Cabrera MD Work Phone: [facility] 10-24-2023 15:23-0500 Diastolic blood pressure 78 mm[Hg] Deepika Cabrera MD Work Phone: [facility] 10-24-2023 15:23-0500 Heart rate 82 /min Deepika Cabrera MD Work Phone: [facility] 10-24-2023 15:23-0500 SaO2% (BldA) [Mass fraction] 98 % Deepika Cabrera MD Work Phone: [facility] 10-24-2023 15:23-0500 Systolic blood pressure 122 mm[Hg] Deepika Cabrera MD Work Phone: [facility] Encounters Encounter Date Encounter Type Care Provider Facility Start: 04-30-2025 kenyatta Flores Facility:[facility] Start: 04-07-2025 End: 04-07-[address] Carol Flores MD Work Phone: -[facility] Start: 04-07-2025 End: 04-07-[address] Carol Flores MD -[facility] Start: 04-07-2025 End: 04-07-2025 kenyatta Flores Facility:[facility] Start: 10-03-2024 End: 10-03-2024 kenyatta Flores Facility:[facility] Start: 04-29-2024 End: 04-29-2024 kenyatta Flores Facility:[facility] Start: 12-17-2023 End: 12-17-2023 ambulatory CAROL FLORES Facility:[facility] Start: 12-17-2023 End: 12-17-2023 Patient encounter procedure Deepika Cabrera MD Work Phone: General Surgery Comment on above: Multinodular goiter (Primary Dx) Start: 10-30-2023 End: 10-30-2023 ambulatory CAROL Gurinder FLORES Facility:[facility] Start: 10-30-2023 End: 10-30-2023 Subsequent hospital visit by physician Deepika Cabrera MD Work Phone: Ambulatory Surgery Comment on above: History of colonic p olyps [Z86.010] Start: 10-25-2023 End: 07-29-2024 Telephone encounter Deepika Cabrera MD Work Phone: General Surgery Comment on above: 10/29/2023 colon asc Start: 10-24-2023 End: 10-24-2023 ambulatory [facility] Facility:[facility] Start: 10-24-2023 End: 10-24-2023 Patient encounter procedure Deepika Cabrera MD Work Phone: General Surgery Comment on above: History of colonic p olyps (Primary Dx) Start: 10-11-2023 End: 10-11-2023 ambulatory [facility] Work Phone: Start: 10-11-2023 End: 10-11-2023 Patient encounter procedure [facility]-Ul[facility]ound, [facility] Work Phone: Start: 09-21-2023 End: 09-21-2023 ambulatory [facility] Work Phone: Start: 09-21-2023 End: 09-21-2023 Patient encounter procedure [facility]-Laboratory, [place] Work Phone: Start: 04-18-2023 End: 04-18-2023 ambulatory [facility] Work Phone: Start: 04-18-2023 End: 04-18-2023 Patient encounter procedure [facility]-Outpatient Breast Imaging Work Phone: Start: 04-02-2023 End: 04-02-2023 ambulatory [facility] Work Phone: Start: 04-02-2023 End: 04-02-2023 [facility] Start: 10-05-2022 End: 10-05-2022 ambulatory [facility] Work Phone: Start: 10-05-2022 End: 10-05-2022 Patient encounter procedure [facility]-Ultrasound, [facility] Start: 09-21-2022 End: 09-21-2022 ambulatory [facility] Work Phone: Start: 09-21-2022 End: 09-21-2022 Patient encounter procedure [facility] Start: 05-12-2022 End: 05-12-2022 ambulatory [facility] Work Phone: Start: 05-12-2022 End: 05-12-2022 Discharged Recurring [facility]-Occupational Therapy Start: 04-17-2022 End: 04-17-2022 Patient encounter procedure [facility]-Outpatient Breast Imaging Start: 04-10-2022 End: 04-10-2022 Patient encounter procedure [facility]-Radiology, [place] Start: 07-20-2017 End: 07-21-2017 Emergency department patient visit DIONICIO Hernandez [facility] Procedures Date Procedure Procedure Detail Performing Clinician [...] DTaP,Tdap,Td Vaccine (2 - Td or Tdap) [facility] Start: 10-30-2024 Screening for malign ant neoplasm of colon [facility] Start: 05-25-2024 Covid-19 Vaccine ( season) Covid-19 Vaccine ( season) [facility] Start: 05-25-2024 Influenza vaccination Influenza Vacc ine (#1) [facility] Start: 2023 RSV Vaccine (1 - 1-d ose 60+ series) RSV Vaccine (1 - 1-dose 60+ series) [facility] Start: 2023 RSV Vaccine (1 - Ris k 60-74 years 1-dose series) RSV Vaccine (1 - Risk 60-74 years 1-dose series) [facility] Start: 09-24-2023 Depression Assessment Depression Ass essment [facility] Start: 05-25-2023 Covid-19 Vaccine ( season) Covid-19 Vaccine ( season) [facility] Start: 05-25-2023 Influenza vaccination Influenza Vacc ine (#1) [facility] Start: 09-03-2020 Screening for malign ant neoplasm of colon [facility] Start: 07-20-2020 Diabetes Screening Diabetes Screenin g [facility] Start: 2008 Lipid panel Lipid Screening [facility] Start: 2008 Screening for malign ant neoplasm of colon [facility] Start: 2003 Screening for malign ant neoplasm of breast Mammogram Screening [facility] Start: 1993 Screening for malign ant neoplasm of cervix HPV Testing [facility] Start: 1984 Screening for malign ant neoplasm of cervix [facility] Start: 1981 Anxiety Screening Anxiety Screening [facility] Start: 1981 Depression Screening Depression Scre ening [facility] Start: 1981 Hepatitis C screening Hepatitis C [facility] Start: 1981 HIV screening HIV Screening [facility] End: 10-24-2024 Screening colonoscopy COLONOSCOPY SCREENING Endoscopy Routine History of colonic polyps 1 Occurrences starting 10/24/2023 until 10/24/2024 [facility] Work Phone: Comment on above: 1 Occurrences starti ng 10/24/2023 until 10/24[facility] Immunization Date Immunization Notes Care Provider Fa cility 10-13-2022 influenza virus vacc ine, unspecified formulation Deepika Cabrera MD Work Phone: [facility] Payers Date Payer Category Payer Self-pay [id number] 2020 Unknown ANGELICA DIAZ PPO [id number] 2020-Present [phone] [address] [place] [address] PPO [id number] 2016 Unknown [id number] Self-pay [id number] Unknown [id number] Unknown [id number] Unknown [id number] Unknown [id number] Social History Date Type Detail Facility Tobacco smoking stat [facility] Unknown if ever smoked [facility] Work Phone: Start: 1965 [facility]igned At Female [facility] Start: 10-24-2023 [facility] Start: 09-24-1979 End: 09-24-1985 History of tobacco use Current smoker [facility] Start: 09-24-1979 End: 09-24-1985 History of tobacco use Cigarette Smoker [facility] Start: 10-24-2023 Tobacco use and exposure Smokeless tobacco non-user [facility] Start: 10-24-2023 End: 12-17-2023 Alcohol intake Current drinker of alcohol (finding) [facility] Start: 10-24-2023 End: 12-17-2023 History of Social function [facility] Start: 10-24-2023 End: 12-17-2023 Tobacco use panel [facility] National Score (1-10 0), lower number is lower risk 75 [facility] Start: 07-20-2017 Alcohol Comment socially [facility] Start: 1965 Sex Assigned At Not on file [facility] Start: 11-19-2023 Gender identity Identifies as female gender (finding) [facility] Start: 11-19-2023 Sexual orientation Heterosexual (aleksandra edmondson) [facility] Tobacco smoking stat [facility] Unknown if ever smoked [facility] Work Phone: Medical Equipment Procedure Code [...] Tameka Paredes RN documented in this encounter [facility] 12-17-2023 Note HNO ID: [id number] Author: DEEPIKA CABRERA MD Service: ? Author [...] breasts Abnormal thyroid ultrasound 10/11/2023 performed at [facility] Diabetes (HCC) History of adenomatous polyp of colon 2019 repeat 5 years Hypercholesterolemia Hypertension Nickel allergy Osteoarthritis of right wrist Seasonal allergies Thyroid nodule Type 2 diabetes mellitus (HCC) Vitamin D deficiency PAST SURGICAL HISTORY Procedure Laterality Date APPENDECTOMY HX 1977 COLONOSCOPY 2019 adenomatous polyp, repeat 5 years Current Outpatient Medications Medication Sig Insulin [place], Disposable, (BD ULTRA-FINE LAKIA PEN NEEDLE) 32 [...] entered by the nurse and reviewed by mn Nursing Notes: Tameka Paredes RN 12/17/2023 1:02 [...] infections, and denies (more content not included)... [facility] 12-17-2023 History of Presen t illness Narrative [...] breasts Abnormal thyroid ultrasound 10/11/2023 performed at [facility] Diabetes (HCC) History of adenomatous polyp of colon 2019 repeat 5 years Hypercholesterolemia Hypertension Nickel allergy Osteoarthritis of right wrist Seasonal allergies Thyroid nodule Type 2 diabetes mellitus (HCC) Vitamin D deficiency PAST SURGICAL HISTORY Procedure Laterality Date APPENDECTOMY HX 1977 COLONOSCOPY 2019 adenomatous polyp, repeat 5 years Current Outpatient Medications Medication Sig Insulin [place], Disposable, (BD ULTRA-FINE LAKIA PEN NEEDLE) 32 [...] entered by the nurse and reviewed by mn Nursing Notes: Tameka Paredes RN 12/17/2023 1:02 [...] Deepika Cabrera MD documented in this encounter [facility] 10-30-2023 Nurse Note Blood sugar checked with [...] gas as needed. documented in this encounter [facility] 10-30-2023 History and physical note UPDATED PROCEDURAL [...] MEDICATIONS Current Outpatient Medications Medication Sig Insulin [place], Disposable, (BD ULTRA-FINE LAKIA PEN NEEDLE) 32 [...] MEDICATIONS Current Outpatient Medications Medication Sig Insulin [place], Disposable, (BD ULTRA-FINE LAKIA PEN NEEDLE) 32 [...] entered by the nurse and reviewed by mn Nursing Notes: Tameka Paredes RN 10/24/2023 3:27 [...] no further questions. documented in this encounter [facility] 10-25-2023 Telephone encounter Note 10/29/2023 colon asc [facility] 10-25-2023 Miscellaneous Notes 10/29/2023 colon asc documented in this encounter [facility] 10-24-2023 Instructions Deepika Cabrera MD - 10/24/2023 [...] If you do not have a responsible professional driver (family member or friend) with you to [...] exam. 2 08/2019 documented in this encounter [facility] 10-24-2023 Note HNO ID: [id number] Author: DEEPIKA CABRERA MD Service: ? Author [...] years Current Outpatient Medications Medication Sig Insulin [place], Disposable, (BD ULTRA-FINE LAKIA PEN NEEDLE) 32 [...] entered by the nurse and reviewed by mn Nursing Notes: Tameka Paredes RN 10/24/2023 3:27 [...] substance abuse. Endocrine (more content not included)... [facility] 10-24-2023 History of Presen t illness Narrative [...] years Current Outpatient Medications Medication Sig Insulin [place], Disposable, (BD ULTRA-FINE LAKIA PEN NEEDLE) 32 [...] entered by the nurse and reviewed by mn Nursing Notes: Tameka Paredes RN 10/24/2023 3:27 [...] will be scheduled for the procedure at [facility]. I have confirmed and edited as necessary, [...] Deepika Cabrera MD documented in this encounter [facility] 10-24-2023 Nurse Note REVIEW OF SYSTEMS: General: [...] Tameka Paredes RN documented in this encounter [facility] Evaluation note No assessment inform ation available [facility] Work Phone: Evaluation note Diagnosis History of colonic polyps- Primary Personal history of colonic polyps [facility] History of colon polyps- Primary Personal history of colonic polyps History of colonic polyps Personal history of colonic polyps [facility] Diagnosis Multinodular goiter- Primary Nontoxic multinodular goiter documented in this encounter [facility] for referral (narrative)* Outpatient Procedure (Routine) - Authorized Specialty Diagnoses / Procedures Referred By Brii olsen Referred To Contact [facility] Diagnoses History of colonic polyps Procedures COLONOSCOPY SCREENING COLONOSCOPY FLX DX W/COLLJ SPEC WHEN Deepika Gallagher MD [address] [place] [address] [facility] Disease [place] [address] [place] [address] Referral ID Status Reason Start Date Expiration Date Visits Requested Visits Authorized [id number] Authorized Auto-Generat ed Referral 10/24/2023 10/24/2024 1 1 [facility] for referral (narrative)* Outpatient Procedure (Routine) - Closed Specialty Diagnoses / Procedures Referred By Brii olsen Referred To Contact [facility] Diagnoses History of colonic polyps Procedures COLONOSCOPY SCREENING COLONOSCOPY FLX DX W/COLLJ SPEC WHEN Deepika Gallagher MD [address] [place] [address] [facility] Disease [address] [address] Referral ID Status Reason Start Date Expiration Date V isits Requested Visits Authorized [id number] Closed Auto-Generate d Referral 10/24/2023 10/24/2024 1 1 [facility] for referral (narrative)No reason for [facility] Work Phone: Reason for visit Narrative* Outpatient Procedure (Routine) - Closed Specialty Diagnoses / Procedures Referred By Contac t Referred To Contact [facility] Diagnoses History of colonic polyps Procedures COLONOSCOPY SCREENING COLONOSCOPY FLX DX W/COLLJ SPEC WHEN [facility] Deepika Cabrera MD [address] [place] [address] [facility] [place] [address] [place] [address] Referral ID Status Reason Start Date Expiration Date V isits Requested Visits Authorized [id number] Closed Auto-Generate d Referral 10/24/2023 10/24/2024 1 1 [facility] Summary Purpose Family History No Family History Records FoundNo Family History Records FoundNo Family History Records FoundNo Family History Records FoundNo Family History Records Found Advance Directives No Advanced Directives Records Found Advance Directive Response Recorded Date/ Time Living Will No March 04, 2015 3:40pm Power of Senior Clinical Sas Programmer No March 04 5 3:40pm Advance Directive Response Recorded Date/ Time Living Will No March 04, 2015 2:40pm Power of Senior Clinical Sas Programmer No March 04 5 2:40pm Chief Complaint and Reason for Visit Chief Complaint SCREENING Chief Complaint R CTS/RX HERE Chief Complaint EORDER Chief Complaint EORDER PRIOR EXOPHYTIC CYST Chief Complaint PRIOR IRREGULARITY/N ODULE/CYST Additional Source Comments INFORMATION SOURCE (unrecogn ized section and content) DATE CREATED AUTHOR 03/19/2018 [facility] DATE CREATED AUTHOR AUTHOR'S ORGANIZ ATION 03/19/2018 [facility] DATE CREATED AUTHOR AUTHOR'S ORGANIZ ATION 03/09/2020 [facility] ([place]) DATE CREATED AUTHOR AUTHOR'S ORGANIZ ATION 07/31/2024 [facility] DATE CREATED AUTHOR AUTHOR'S ORGANIZ ATION 04/29/2025 [facility] Goals (unrecognized section and content) Goals may [...] Primary Care Provider, Attending P dorinda Active Vertical Roll Operator Relationship Specialty Start Date End Date Carol Flores MD [address] [place] [address] PCP - General Family Medicine 07/20/17 Vertical Roll Operator Relationship Specialty Start Date End Date Carol Flores MD [address] [place] [address] PCP - General Family Medicine 07/20/17 Vertical Roll Operator Relationship Specialty Start Date End Date Carol Flores MD [address] [place] [address] PCP - General Family Medicine 07/20/17 Vertical Roll Operator Relationship Specialty Start Date End Date Carol Flores MD [address] [place] [address] PCP - General Family Medicine 07/20/17 Team [...] or prosecute any alcohol or drug abuse patient.[facility] the event this information is protected by the Federal Confidentiality of Alcohol and Drug Abuse Patient Records regulations: The Federal rules restrict any use of the information to criminally investigate or prosecute any alcohol or drug abuse patient.[facility] the event this information is protected by the Federal Confidentiality of Alcohol and Drug Abuse Patient Records regulations: The Federal rules restrict any use of the information to criminally investigate or prosecute any alcohol or drug abuse patient.[facility] HospitalIn the event this information is protected by the Federal Confidentiality of Alcohol and Drug Abuse Patient Records regulations: The Federal rules restrict any use of the information to criminally investigate or prosecute any alcohol or drug abuse patient.[facility] Reason for Visit (unrecogniz ed section and [...] BE BASED ON THE PRIMARY CLINICAL RECORDS. [employer] [facility]. provides no warranty or guarantee of the accuracy or completeness of information in this document.
== END | disposition home or self-care (01) ==
LOC: OPBI 07:04
PROVIDERS: PCP Family Medicine; Referring Provider Family Medicine; Visit Provider Family Medicine
DX: Z12.31 Encounter for screening mammogram for malignant neoplasm of breast (principal)
CPT/HCPCS: 77063; 77067

== ENCOUNTER → 2025-05-05 | Outpatient (CLI) | payer BC, SELFPAY ==
--- NOTE | 2025-05-05 13:56 | BI_ITS ---
EXAM: DIAG MAMM W/CAD, UNILAT; RT BRST UNILAT TAMMY ADD-ON; BREAST LIMITED UNILATERAL 05/05/2025 CLINICAL HISTORY: F, Age 59 y/o , ABN MAMM TECHNIQUE: DIAG MAMM W/CAD, UNILAT; RT BRST UNILAT TAMMY ADD-ON; BREAST LIMITED UNILATERAL. COMPARISON: Prior exam(s) dated 04/30/2025, 04/29/2024, 04/18/2023, 04/17/2022. FINDINGS: MAMMOGRAM: TISSUE DENSITY: The breasts are heterogeneously dense, which may obscure small masses. The mammogram demonstrates that the patient has dense breasts. Supplemental screening with whole breast ultrasound or MRI may be considered for further evaluation. Unilateral Right Breast Mammographic Findings: Follow-up examination performed for the right breast mass seen on examination of 04/30/2025. On the present examination, the mass in the central outer right breast at middle depth persist. On further evaluation, this mass has not significantly changed when compared to multiple priors dating back to 04/17/2022. ULTRASOUND: Ultrasound performed of the lateral right breast. There is an oval circumscribed hypoechoic mass in the right breast at 9 o'clock 3 cm from the nipple, measuring 1.1 x 0.8 x 0.4 cm. This likely represents a fibroadenoma. BI/Rt Brst Unilat Tammy Add-On IMPRESSION: Benign right breast mass at 9 o'clock, likely represents a fibroadenoma. This has been mammographically stable on multiple priors dating back to 2021. OVERALL FINAL ASSESSMENT BI-RADS 2: BENIGN RECOMMENDATION: Routine annual follow-up in 1 Year A letter with findings and recommendations will be mailed to the patient. Reading Location: [id number]
--- NOTE | 2025-05-05 13:56 | BI_ITS ---
EXAM: DIAG MAMM W/CAD, UNILAT; RT BRST UNILAT TAMMY ADD-ON; BREAST LIMITED UNILATERAL 05/05/2025 CLINICAL HISTORY: F, Age 59 y/o , ABN MAMM TECHNIQUE: DIAG MAMM W/CAD, UNILAT; RT BRST UNILAT TAMMY ADD-ON; BREAST LIMITED UNILATERAL. COMPARISON: Prior exam(s) dated 04/30/2025, 04/29/2024, 04/18/2023, 04/17/2022. FINDINGS: MAMMOGRAM: TISSUE DENSITY: The breasts are heterogeneously dense, which may obscure small masses. The mammogram demonstrates that the patient has dense breasts. Supplemental screening with whole breast ultrasound or MRI may be considered for further evaluation. Unilateral Right Breast Mammographic Findings: Follow-up examination performed for the right breast mass seen on examination of 04/30/2025. On the present examination, the mass in the central outer right breast at middle depth persist. On further evaluation, this mass has not significantly changed when compared to multiple priors dating back to 04/17/2022. ULTRASOUND: Ultrasound performed of the lateral right breast. There is an oval circumscribed hypoechoic mass in the right breast at 9 o'clock 3 cm from the nipple, measuring 1.1 x 0.8 x 0.4 cm. This likely represents a fibroadenoma. BI/DIAG MAMM W/CAD, UNILAT IMPRESSION: Benign right breast mass at 9 o'clock, likely represents a fibroadenoma. This has been mammographically stable on multiple priors dating back to 2021. OVERALL FINAL ASSESSMENT BI-RADS 2: BENIGN RECOMMENDATION: Routine annual follow-up in 1 Year A letter with findings and recommendations will be mailed to the patient. Reading Location: [id number]
== END | disposition home or self-care (01) ==
PROVIDERS: PCP Family Medicine; Referring Provider Family Medicine; Visit Provider Family Medicine
DX: R92.30 Dense breasts, unspecified (principal)
CPT/HCPCS: 76642; 77061; 77065; G0279

== ENCOUNTER → 2025-09-21 | Outpatient (CLI) | payer BC, SELFPAY ==
[2025-09-21 10:41] LABS: Hematocrit 43.6 % (37-47); Hemoglobin 13.6 g/dL (12.0-15.0); Immature Granulocytes Count 0.010 X10^3/uL (0.0-0.0); Mean Corp Hgb Conc 31.2 g/dL (32-36); Mean Corpuscular Volume 88.4 fL (81-99); Mean Platelet Vol. 11.0 fl (6.2-12.0); NRBC Flagged by Analyzer 0 % (0-5); Platelet Count 300 K/mm3 (150-450); RBC Distribution Width CV 14.8 % (11.6-14.6); RBC Distribution Width SD 48.2 fl (35.1-43.9); Red Blood Count 4.93 M/mm3 (4.2-5.4); White Blood Count 4.6 K/mm3 (4.4-11.0)
[2025-09-21 10:58] LABS: Microalbumin,Random Urine < 12.0 mg/L (<20 mg/L)
[2025-09-21 11:00] LABS: AST(SGOT) 20 U/L (<=31); Alanine Aminotransfer ALT/SGPT 12 U/L (<=34); Albumin, Serum 4.5 g/dL (3.4-4.8); Alkaline Phosphatase 70 U/L (35-104); Anion Gap 12 (7-18); BUN 19 mg/dL (4-19); BUN/Creat Ratio 29.7 RATIO (10-20); Calcium,Total 9.1 mg/dL (7.6-11.0); Carbon Dioxide 26.7 mmol/L (20.0-29.0); Chloride 100 mmol/L (96-106); Globulin 2.7 g/dL (2.2-4.2); Glucose 128 mg/dL (70-99); Potassium 3.7 mmol/L (3.5-5.1)
[2025-09-21 11:29] LABS: Vitamin D,25 Hydroxy 38.8 ng/mL (30-100)
== END | disposition home or self-care (01) ==
LOC: MTLAB 08:59
PROVIDERS: PCP Family Medicine; Referring Provider Family Medicine; Visit Provider Family Medicine
DX: M25.511 Pain in right shoulder (principal); E11.69 Type 2 diabetes mellitus with other specified complication
CPT/HCPCS: 36415; 80053; 82043; 82306; 83036; 85025